=== PATIENT | female | born 1930 | race Caucasian/White ===

== ENCOUNTER 2016-12-21 14:37 | Inpatient (IN) | payer MEDICARE, BC ==
[~2016-12-21] VITALS: Ht 165.1 cm; Wt 82.5 kg
[2016-12-21] VITALS (12 sets, daily range): BP systolic 92–189; BP diastolic 44–122; PULSE 65–86; RESP 16–20; TEMP 97.8–98.6; O2SAT 85–98
[~2016-12-21 14:37] MED LIST: ADVAI100I PO; ALBU0.086 NEB; AMLO5 PO; BISA10R PR; CARV6.25 PO; CLON.1 PO; DIAZ2 PO; DIOV160T60 PO; FLEEENE3 PR; FLUO20TA20 PO; HYDR12.56 PO; LACT PO; LAMI300T PO; MELA0.02 PO; NORC7.5T PO; NORT10CA PO; NYST100010 SWISH-SPIT; PRAV40 PO; PROT40TA PO; RIVA15 PO; SERO25TA PO; VANC1CAP6 PO; WATE10P G-TUBE
--- NOTE | 2016-12-21 14:44 | PD ---
HPI . sob worsening over 5 days Chief Complaint: sob, fever, Time Seen by Provider: 14:44 Travel History International Travel<30 days: No Contact w/Intl Traveler<30days: No Traveled to known affect area: No History of Present Illness HPI 86-year-old female with past medical history of meningioma 15 years ago with surgical intervention complicated by CVA, hypertension, hyperlipidemia, GERD, hiatal hernia, recurrent C. difficile which was deemed cleared as recently as 4 weeks ago, here accompanied by her son who reports that patient has been having significant worsening of her shortness of breath accompanied by fever and increased phlegm production. Apparently back in December 2015 patient had hip surgery and was sent to [facility]. Unfortunately she contracted C. difficile and was then sent to [facility] at that point it was determined that her hip surgery had failed and she had to have another operation. She received that operation, went back to [facility] and contracted C. difficile again. She was then sent back to [facility] and apparently had an episode where she was found unresponsive after with the son seems to be describing as aspiration pneumonia. Patient was then sent again back to [facility] where once again she contracted C. difficile and thrush. She was treated appropriately and has been C. difficile free. In this time frame he has developed a sense of fear of bringing her to the hospital. He feels we will put her on antibiotics and give her C. diff once more. He goes on to tell me that his mother had some type of respiratory infection about 8 weeks ago. He says he did not want to bring her into the hospital because every time he does she contracts C. difficile. He decided to keep her home and was treating her with Robitussin and expectorant [id number]. He reports that she improved and she had been doing well since. At her baseline level of functioning, she is able to hold conversations and walk with a walker. 5 days ago a she came down with another respiratory infection. Where he started using [id number] expectorant and Robitussin. Initially she seemed to show signs of improvement, but patient says yesterday patient seemed to have developed worsening shortness of breath. He blames this on the the albuterol via nebulizer. He tells me that she may have had a fever as she felt warm. He never checked it with a thermometer. He reports that she has a lot of phlegm production. Unfortunately Ms. Borja is unable to relay any of her own information. She appears very ill and lethargic. Patient's son denies any nausea, vomiting, chest pain or abdominal pain. She has not been eating nor drinking well. PFSH Past Medical History Arthritis: Yes Asthma: No Atrial Fibrillation: Yes Autoimmune Disease: No Blood Disorders: No Anxiety: Yes Depression: Yes Heart Rhythm Problems: No Cancer: No Cardiovascular Problems: Yes (coronary artery disease status post stent; age or fibrillation) High Cholesterol: Yes Chemotherapy: No Congestive Heart Failure: Yes COPD: No Coronary Artery Disease: Yes (STENT TIMES ONE) Diabetes: No Diminished Hearing: No Deep Vein Thrombosis: Yes Endocrine: No Gastrointestinal Disorders: Yes GERD: Yes Genitourinary: Yes Hypertension: Yes Immune Disorder: No Implanted Vascular Access Dvce: Yes Kidney Stones: No Musculoskeletal: Yes Neurologic: Yes (dementia) Psychiatric: Yes Reproductive: No Respiratory: No Migraines: No Myocardial Infarction: No Radiation Therapy: No Sickle Cell Disease: No Thyroid Disease: No Ulcer: No Past Surgical History Abdominal Surgery: Yes (CHOLECYSTECTOMY) AICD: No Appendectomy: Yes Arteriovenous Shunt: No Body Medical Devices: SPINAL STIMULATOR AND CARDIAC STENT Cardiac Surgery: Yes (CARDIAC STENT) Cholecystectomy: Yes Ear Surgery: No Endocrine Surgery: No Eye Surgery: No Genitourinary Surgery: No Hysterectomy: Yes Insulin Pump: No Joint Replacement: No Neurologic Surgery: Yes (MENINGIOMA 1995-NEUROSPINAL STIMULATOR) Oral Surgery: No Thoracic Surgery: No Other Surgery: Yes Social History Alcohol Use: Yes (ONE DRINK A DAY) Tobacco Use: No Substance Use: No Allergies-Medications (Allergen,Severity, Reaction): Coded Allergies: Lactose (Verified Allergy, Severe, CRAMPS, DIARRHEA, 06/07/16) Reported Meds & Prescriptions Reported Meds & Active Scripts Active Reported Aspirin 325 Mg Tab 325 Mg PO DAILY Budesonide Neb 0.5 Mg/2 Ml Neb 0.5 Mg NEB BID Give with 1 vial of Perforomist Perforomist Neb (Formoterol Fumarate) 20 Mcg/2 Ml Neb 1 Vial NEB BID Give with 1 vial of Budesonide 0.5mg/2ml Lamictal XR (Lamotrigine) 300 Mg Abdi 300 Mg PO HS Folic Acid 400 Mcg Tab 800 Mcg PO DAILY Fluoxetine (Fluoxetine HCl) 20 Mg Cap 20 Mg PO BID Pravastatin 40 Mg Tab 40 Mg PO DAILY IN THE PM Pamelor (Nortriptyline HCl) 10 Mg Cap 20 Mg PO HS Hydrochlorothiazide 50 Mg Tab 50 Mg PO DAILY Advil (Ibuprofen) 200 Mg Tab 200-400 Mg PO Q4H PRN Amlodipine (Amlodipine Besylate) 5 Mg Tab 5 Mg PO DAILY Valsartan 160 Mg Tab 160 Mg PO BID Coreg (Carvedilol) 6.25 Mg Tab 6.25 Mg PO BID Morphine ER (Morphine Sulfate) 15 Mg Tab 15 Mg PO Q12HR Pantoprazole (Pantoprazole Sodium) 20 Mg Tab 20 Mg PO BID Take 30-60 minutes before breakfast and dinner Review of Systems General / Constitutional: Positive: Fever Eyes: No: Visual changes HENT: No: Headaches Cardiovascular: No: Chest Pain or Discomfort Respiratory: Positive: Cough, Shortness of Breath Gastrointestinal: No: Abdominal Pain Genitourinary: No: Dysuria Musculoskeletal: No: Pain Skin: No Rash Neurologic: No: Weakness Psychiatric: No: Depression Endocrine: No: Polydipsia Hematologic/Lymphatic: No: Easy Bruising Physical Exam Narrative GENERAL: AAO x 0 (very difficult to assess), respiratory distress on Room air o2 86%, lethargic SKIN: Warm and dry. HEAD: Normocephalic and atraumatic. EYES: No scleral icterus. No injection or drainage. ENT: No nasal drainage noted. Mucous membranes pink. Airway patent. Gurgling sound heard on respiration. NECK: Supple, trachea midline. No JVD. No lymphadenopathy. CARDIOVASCULAR: Regular rate and rhythm without murmurs, gallops, or rubs. RESPIRATORY: Breath sounds diminished equally bilaterally. No accessory muscle use. No rhonchi or rales. GASTROINTESTINAL: Abdomen soft, non-tender, nondistended. EXTREMITIES: No cyanosis or edema. BACK: Nontender without obvious deformity. No CVA tenderness. NEURO: follows some basic commands, arousable, lethargic, difficult to assess in her current state Data Data Last Documented VS Vital Signs Date Time Temp Pulse Resp B/P Pulse Ox O2 Delivery O2 Flow Rate FiO2 12/21/16 15:12 86 20 96 Nasal Cannula 3 12/21/16 14:58 98.0 98/52 Orders Electrocardiogram (12/21/16 ) Complete Blood Count With Diff (12/21/16 14:57) Comprehensive Metabolic Panel (12/21/16 14:57) Lactic Acid Sepsis Protocol (12/21/16 14:57) Urinalysis - C+S If Indicated (12/21/16 14:57) Blood Culture (12/21/16 14:57) Blood Glucose (12/21/16 14:57) Ecg Monitoring (12/21/16 14:57) Iv Access Insert/Monitor (12/21/16 14:57) Oximetry (12/21/16 14:57) Sodium Chloride 0.9% Flush (Ns Flush) (12/21/16 15:00) Oxygen Administration (12/21/16 14:57) Sodium Chloride 0.9% Flush (Ns Flush) (12/21/16 15:00) Influenzae A/B Antigen (12/21/16 14:57) Chest, Single Ap (12/21/16 14:57) Sodium Chloride 0.9% Flush (Ns Flush) (12/21/16 15:00) Troponin I (12/21/16 15:15) Arterial Blood Gas (Abg) (12/21/16 ) Sodium Chlor 0.9% 1000 Ml Inj (Ns 1000 M (12/21/16 16:30) Admit Order (Ed Use Only) (12/21/16 16:42) Labs Laboratory Tests Test 12/21/16 12/21/16 12/21/16 15:00 15:40 15:46 Urine Color YELLOW Urine Turbidity CLEAR Urine pH 5.0 Urine Specific [place] 1.014 Urine Protein NEG mg/dL Urine Glucose (UA) NEG mg/dL Urine Ketones NEG mg/dL Urine Occult Blood NEG Urine Nitrite NEG Urine Bilirubin NEG Urine Urobilinogen LESS THAN 2.0 MG/DL Urine Leukocyte Esterase NEG Urine WBC 2 /hpf Urine Squamous Epithelial <1 /hpf Cells Urine Hyaline Casts 1 /lpf Urine Mucus FEW /lpf Microscopic Urinalysis Comment CATH-CULT NOT IND Blood Gas Puncture Site LT RADIAL Blood Gas Patient Temperature 98.6 Blood Gas HCO3 23 mmol/L Blood Gas Base Excess -1.7 mmol/L Blood Gas Oxygen Saturation 85 % Arterial Blood pH 7.35 Arterial Blood Partial 43 mmHg Pressure CO2 Arterial Blood Partial 51 mmHG Pressure O2 Arterial Blood Oxygen Content 13.2 Vol % Arterial Blood 2.0 % Carboxyhemoglobin Arterial Blood Methemoglobin 1.7 % Blood Gas Hemoglobin 11.1 G/DL Blood Gas Inspired Oxygen 21 % White Blood Count 12.8 TH/MM3 Red Blood Count 3.90 MIL/MM3 Hemoglobin 11.0 GM/DL Hematocrit 34.1 % Mean Corpuscular Volume 87.5 FL Mean Corpuscular Hemoglobin 28.2 PG Mean Corpuscular Hemoglobin 32.3 % Concent Red Cell Distribution Width 14.5 % Platelet Count 226 TH/MM3 Mean Platelet Volume 8.9 FL Neutrophils (%) (Auto) 87.2 % Lymphocytes (%) (Auto) 5.5 % Monocytes (%) (Auto) 6.2 % Eosinophils (%) (Auto) 0.5 % Basophils (%) (Auto) 0.6 % Neutrophils # (Auto) 11.2 TH/MM3 Lymphocytes # (Auto) 0.7 TH/MM3 Monocytes # (Auto) 0.8 TH/MM3 Eosinophils # (Auto) 0.1 TH/MM3 Basophils # (Auto) 0.1 TH/MM3 CBC Comment DIFF FINAL Differential Comment Sodium Level 137 MEQ/L Potassium Level 4.4 MEQ/L Chloride Level 101 MEQ/L Carbon Dioxide Level 25.4 MEQ/L Anion Gap 11 MEQ/L Blood Urea Nitrogen 45 MG/DL Creatinine 2.61 MG/DL Estimat Glomerular Filtration 17 ML/MIN Rate Random Glucose 163 MG/DL Lactic Acid Level 2.4 mmol/L Calcium Level 8.5 MG/DL Total Bilirubin 0.5 MG/DL Aspartate Amino Transf 23 U/L (AST/SGOT) Alanine Aminotransferase 17 U/L (ALT/SGPT) Alkaline Phosphatase 121 U/L Troponin I LESS THAN 0.02 NG/ML Total Protein 6.0 GM/DL Albumin 2.9 GM/DL [facility] Medical Decision Making Medical Screen Exam Complete: Yes Emergency Medical Condition: Yes Medical Record Reviewed: Yes Differential Diagnosis PNA, CHF, dehydration, Narrative Course 86-year-old female with past medical history of meningioma 15 years ago with surgical intervention complicated by CVA, hypertension, hyperlipidemia, GERD, hiatal hernia, recurrent C. difficile which was deemed cleared as recently as 4 weeks ago, here accompanied by her son who reports that patient has been having significant worsening of her shortness of breath accompanied by fever and increased phlegm production. Apparently back in December 2015 patient had hip surgery and was sent to [facility]. Unfortunately she contracted C. difficile and was then sent to [facility] rehabilitation at that point it was determined that her hip surgery had failed and she had to have another operation. She received that operation, went back to [facility] and contracted C. difficile again. She was then sent back to [facility] and apparently had an episode where she was found unresponsive after with the son seems to be describing as aspiration pneumonia. Patient was then sent again back to [facility] where once again she contracted C. difficile and thrush. She was treated appropriately and has been C. difficile free. In this time frame he has developed a sense of fear of bringing her to the hospital. He feels we will put her on antibiotics and give her C. diff once more. He goes on to tell me that his mother had some type of respiratory infection about 8 weeks ago. He says he did not want to bring her into the hospital because every time he does she contracts C. difficile. He decided to keep her home and was treating her with Robitussin and expectorant [id number]. He reports that she improved and she had been doing well since. At her baseline level of functioning, she is able to hold conversations and walk with a walker. 5 days ago a she came down with another respiratory infection. Where he started using [id number] expectorant and Robitussin. Initially she seemed to show signs of improvement, but patient says yesterday patient seemed to have developed worsening shortness of breath. He blames this on the the albuterol via nebulizer. He tells me that she may have had a fever as she felt warm. He never checked it with a thermometer. He reports that she has a lot of phlegm production. Unfortunately Ms. Borja is unable to relay any of her own information. She appears very ill and lethargic. Patient's son denies any nausea, vomiting, chest pain or abdominal pain. She has not been eating nor drinking well. Patient seen and examined. Case discussed with Dr. Mcnally. Workup including labs, blood cultures, lactic acid, chest x-ray, EKG you have been ordered. We will follow-up with those results before adding any medications or determining further course of care. CXR without any acute findings. UA negative for infection. White count slightly elevated. Elevated BUN/Creatinine: IV hydration started in ED Patient will be admitted with RASHEL. Discussed with Dr. Nazario. 23 hour observation, CDU, discussed no antibiotics until speaking with son. Also caution albuterol. Consider palliative care (we have not discussed with family) Diagnosis Primary Impression: RASHEL (acute kidney injury) Admitting Information Admitting Physician Requests: Admit Condition: Stable Taty Gutierrez Dec 21, 2016 14:44
[2016-12-21] MEDS ORDERED: SODIUM CHLORIDE 0.9% FLUSH 5 ML FLUSH IVF PRN ×3 (15:00)
[2016-12-21] MEDS ORDERED: PAME10CA PO (15:22)
[2016-12-21] MEDS ORDERED: AMLO5TAB2 PO (15:22)
[2016-12-21] MEDS ORDERED: IBUP-988 PO (15:22)
[2016-12-21] MEDS ORDERED: HYDR50TA3 PO (15:22)
[2016-12-21] MEDS ORDERED: LAMI300T PO (15:22)
[2016-12-21] MEDS ORDERED: CARV6.25 PO (15:22)
[2016-12-21] MEDS ORDERED: FLUO20CA4 PO (15:22)
[2016-12-21] MEDS ORDERED: BUDE0.5S NEB (15:22)
[2016-12-21] MEDS ORDERED: FORM20NE NEB (15:22)
[2016-12-21] MEDS ORDERED: FOLI400T PO (15:22)
[2016-12-21] MEDS ORDERED: PANT20TA2 PO (15:22)
[2016-12-21] MEDS ORDERED: MORP1TAB24 PO (15:22)
[2016-12-21] MEDS ORDERED: PRAV40TA2 PO (15:22)
[2016-12-21] MEDS ORDERED: VALS1TAB65 PO (15:22)
[2016-12-21] MEDS ORDERED: ASPI325T PO (15:23)
--- NOTE | 2016-12-21 15:45 | RADRPT ---
EXAM DATE/TIME: 12/21/2016 15:31 [place] COMPARISON: CHEST SINGLE AP, June 08, 2016, 4:23. INDICATIONS : Short of breath. MEDICAL HISTORY : Cardiovascular disease. SURGICAL HISTORY : Coronary artery stent. ENCOUNTER: Initial ACUITY: 1 day PAIN SCORE: 0/10 LOCATION: Bilateral chest FINDINGS: A single view of the chest demonstrates the lungs to be symmetrically aerated without evidence of mas s, infiltrate or effusion. The cardiomediastinal contours are unremarkable. Osseous structures are intact. CONCLUSION: Normal examination. Lungs are grossly clear Gabriel Gurrola MD on December 21, 2016 at 15:43 Board Certified Radiologist. This report was verified electronically.
[2016-12-21 15:52] LABS: BLOOD GAS BASE EXCESS -1.7 mmol/L (-2-2); BLOOD GAS HCO3 23 mmol/L (22-26); BLOOD GAS METHEMOGLOBIN 1.7 % (0-2); BLOOD GAS O2 HGB SATURATION 85 % (90-100); BLOOD GAS OXYGEN CONTENT 13.2 Vol % (12.0-20.0); BLOOD GAS PCO2 43 mmHg (38-42); BLOOD GAS PO2 51 mmHG (61-120); BLOOD GAS TOTAL HGB 11.1 G/DL (12.0-16.0); CRITICAL VALUE YES; TEMP CORR TO 98.6
[2016-12-21 15:53] LABS: DRAW SITE LT RADIAL; FIO2 21 %; NUMBER OF ARTERIAL PUNCTURES 2; STAT YES; ULNAR PULSE PRESENT
[2016-12-21 15:57] LABS: AUTOMATED NEUTROPHIL # 11.2 TH/MM3 (1.8-7.7); BASOPHIL # 0.1 TH/MM3 (0-0.2); BASOPHIL % 0.6 % (0.0-2.0); EOSINOPHIL # 0.1 TH/MM3 (0-0.4); EOSINOPHIL % 0.5 % (0.0-4.0); HEMATOCRIT 34.1 % (35.0-46.0); HEMO FLAGS DIFF FINAL; LYMPH % 5.5 % (9.0-44.0); LYMPHOCYTE # 0.7 TH/MM3 (1.0-4.8); MEAN CELL VOLUME 87.5 FL (80.0-100.0); MEAN CORPUSCULAR HEMOGLOBIN 28.2 PG (27.0-34.0); MEAN CORPUSCULAR HGB CONC 32.3 % (32.0-36.0); MONO % 6.2 % (0.0-8.0); NEUT % 87.2 % (16.0-70.0); PLATELET COUNT 226 TH/MM3 (150-450); RED CELL DISTRIBUTION WIDTH 14.5 % (11.6-17.2); WHITE BLOOD COUNT 12.8 TH/MM3 (4.0-11.0)
[2016-12-21 16:12] LABS: BLOOD, URINE NEG (NEG); COMMENT (UR) CATH-CULT NOT IND; CULTURE IF INDICATED CATH CULTURE NOT IND; GLUCOSE,URINE NEG (NEG); HYALINE CAST, URINE 1 /lpf (RARE); KETONE, URINE NEG (NEG); MUCUS URINE FEW /lpf (OCC); NITRITE,URINE NEG (NEG); SQUAMOUS EPITHELIAL CELL URINE <1 /hpf (0-5); URINE COLOR YELLOW (YELLW/STRAW)
[2016-12-21 16:17] LABS: ALT (GPT) 17 U/L (10-53); ANION GAP 11 MEQ/L (5-15); AST (GOT) 23 U/L (15-37); BICARBONATE 25.4 MEQ/L (21.0-32.0); BLOOD UREA NITROGEN 45 MG/DL (7-18); CHLORIDE 101 MEQ/L (98-107); GLOMERULAR FILTRATION RATE 17 ML/MIN (>89); POTASSIUM 4.4 MEQ/L (3.5-5.1); SODIUM (NA) 137 MEQ/L (136-145)
[2016-12-21 16:19] LABS: ALKALINE PHOSPHATASE 121 U/L (45-117); TOTAL BILIRUBIN ADULT 0.5 MG/DL (0.2-1.0)
[2016-12-21] MEDS ORDERED: SODIUM CHLOR 0.9% 1000 ML INJ 1,000 ML IV ONE ×2 (16:30→19:30)
--- NOTE | 2016-12-21 16:54 | PD ---
Data Data Last Documented VS Vital Signs Date Time Temp Pulse Resp B/P Pulse Ox O2 Delivery O2 Flow Rate FiO2 12/21/16 15:12 86 20 96 Nasal Cannula 3 12/21/16 14:58 98.0 98/52 Orders Electrocardiogram (12/21/16 ) Complete Blood Count With Diff (12/21/16 14:57) Comprehensive Metabolic Panel (12/21/16 14:57) Lactic Acid Sepsis Protocol (12/21/16 14:57) Urinalysis - C+S If Indicated (12/21/16 14:57) Blood Culture (12/21/16 14:57) Blood Glucose (12/21/16 14:57) Ecg Monitoring (12/21/16 14:57) Iv Access Insert/Monitor (12/21/16 14:57) Oximetry (12/21/16 14:57) Sodium Chloride 0.9% Flush (Ns Flush) (12/21/16 15:00) Oxygen Administration (12/21/16 14:57) Sodium Chloride 0.9% Flush (Ns Flush) (12/21/16 15:00) Influenzae A/B Antigen (12/21/16 14:57) Chest, Single Ap (12/21/16 14:57) Sodium Chloride 0.9% Flush (Ns Flush) (12/21/16 15:00) Troponin I (12/21/16 15:15) Arterial Blood Gas (Abg) (12/21/16 ) Sodium Chlor 0.9% 1000 Ml Inj (Ns 1000 M (12/21/16 16:30) Admit Order (Ed Use Only) (12/21/16 16:42) Labs Laboratory Tests Test 12/21/16 12/21/16 12/21/16 15:00 15:40 15:46 Urine Color YELLOW Urine Turbidity CLEAR Urine pH 5.0 Urine Specific [place] 1.014 Urine Protein NEG mg/dL Urine Glucose (UA) NEG mg/dL Urine Ketones NEG mg/dL Urine Occult Blood NEG Urine Nitrite NEG Urine Bilirubin NEG Urine Urobilinogen LESS THAN 2.0 MG/DL Urine Leukocyte Esterase NEG Urine WBC 2 /hpf Urine Squamous Epithelial <1 /hpf Cells Urine Hyaline Casts 1 /lpf Urine Mucus FEW /lpf Microscopic Urinalysis Comment CATH-CULT NOT IND Blood Gas Puncture Site LT RADIAL Blood Gas Patient Temperature 98.6 Blood Gas HCO3 23 mmol/L Blood Gas Base Excess -1.7 mmol/L Blood Gas Oxygen Saturation 85 % Arterial Blood pH 7.35 Arterial Blood Partial 43 mmHg Pressure CO2 Arterial Blood Partial 51 mmHG Pressure O2 Arterial Blood Oxygen Content 13.2 Vol % Arterial Blood 2.0 % Carboxyhemoglobin Arterial Blood Methemoglobin 1.7 % Blood Gas Hemoglobin 11.1 G/DL Blood Gas Inspired Oxygen 21 % White Blood Count 12.8 TH/MM3 Red Blood Count 3.90 MIL/MM3 Hemoglobin 11.0 GM/DL Hematocrit 34.1 % Mean Corpuscular Volume 87.5 FL Mean Corpuscular Hemoglobin 28.2 PG Mean Corpuscular Hemoglobin 32.3 % Concent Red Cell Distribution Width 14.5 % Platelet Count 226 TH/MM3 Mean Platelet Volume 8.9 FL Neutrophils (%) (Auto) 87.2 % Lymphocytes (%) (Auto) 5.5 % Monocytes (%) (Auto) 6.2 % Eosinophils (%) (Auto) 0.5 % Basophils (%) (Auto) 0.6 % Neutrophils # (Auto) 11.2 TH/MM3 Lymphocytes # (Auto) 0.7 TH/MM3 Monocytes # (Auto) 0.8 TH/MM3 Eosinophils # (Auto) 0.1 TH/MM3 Basophils # (Auto) 0.1 TH/MM3 CBC Comment DIFF FINAL Differential Comment Sodium Level 137 MEQ/L Potassium Level 4.4 MEQ/L Chloride Level 101 MEQ/L Carbon Dioxide Level 25.4 MEQ/L Anion Gap 11 MEQ/L Blood Urea Nitrogen 45 MG/DL Creatinine 2.61 MG/DL Estimat Glomerular Filtration 17 ML/MIN Rate Random Glucose 163 MG/DL Lactic Acid Level 2.4 mmol/L Calcium Level 8.5 MG/DL Total Bilirubin 0.5 MG/DL Aspartate Amino Transf 23 U/L (AST/SGOT) Alanine Aminotransferase 17 U/L (ALT/SGPT) Alkaline Phosphatase 121 U/L Troponin I LESS THAN 0.02 NG/ML Total Protein 6.0 GM/DL Albumin 2.9 GM/DL [facility] Supervised Visit with ABIGAIL: Yes Narrative Course The history, exam, and medical decision-making in the associated mid-level provider note were completed with my assistance. I reviewed and agree with the findings presented. I attest that I had a [id number] encounter with the patient on the same day, and personally performed and documented my assessment and findings in the medical record. *My assessment and Findings: Send 86-year-old woman worsening medical problems or past several months, starting with a fractured hip, complicated by me or hospitalizations, multiple rounds of C. difficile, pneumonia, aspiration, and extended rehabilitation stays , presents to the emergency department with 4 days of cough congestion shortness of breath and worsening mental status. Mental status abruptly worsen today with lethargy, sluggishness, difficulty answering questions. Initial workup actually is not very revealing. She had a decrease oxygen saturation of 86% on room air. Is no obvious pneumonia. Blood test show what appears to be acute kidney injury related to significant dehydration. She is given IV fluid rehydration, holding antibiotics given recurrent C. difficile and no clear infectious source, admissions to the hospital. Diagnosis Primary Impression: RASHEL (acute kidney injury) Condition: Stable Gabriel Mcnally MD Dec 21, 2016 16:54
[2016-12-21] MEDS ORDERED: ACETAMINOPHEN 325 MG TAB PO PRN (17:45)
[2016-12-21] MEDS ORDERED: SODIUM CHLORIDE 0.9% FLUSH 5 ML FLUSH FLUSH PRN (17:45)
[2016-12-21] MEDS ORDERED: NALOXONE HCL 0.4 MG/ML AMP IV PRN (17:45)
[2016-12-21 17:46] LABS: LACTIC ACID GHOST NOT REPORTABLE
--- NOTE | 2016-12-21 18:01 | HHI.HP ---
[facility] Service [facility] Primary Care Physician No Primary Care Physician Admission Diagnosis RASHEL Diagnoses: Chief Complaint: Shortness of breath 5 days Travel History International Travel<30 Days: No Contact w/Intl Traveler <30 Da: No Traveled to Known Affected Are: No History of Present Illness This is a 86 female patient who is currently alert and oriented to person and place only with limited ability to provide information therefore information gathered from patient as well as prior computerized charting. Patient's past medical history which includes hypertension, depression, anxiety, chronic kidney disease, CVA, recurrent C. difficile 3 and CAD status post cardiac stent. Review of ER documentation patient has had worsening medical problems for the past several months, starting with a fractured hip, complicated by multiple hospitalizations, 3 rounds of C. difficile, aspiration pneumonia, and extended rehabilitation stays, presents to the emergency department with 5 days of cough congestion shortness of breath and worsening mental status. Patient had a decrease oxygen saturation of 86% on room air. No obvious pneumonia. Blood test show what appears to be acute kidney injury related to significant dehydration. She is given IV fluid rehydration in ER. Patient is a unreliable historian denies shortness of breath chest pain nausea vomiting diarrhea constipation fevers or chills. In review of ER documentation patient's son reported increasing shortness of breath, increased phlegm production, subjective fevers and altered mental status. Review of Systems ROS Limitations: Poor Historian Except as stated in HPI: all other systems reviewed are Neg Past Family Social History Past Medical History hypertension, depression, anxiety, chronic kidney disease, CVA, recurrent C. difficile 3 and CAD status post cardiac stent. Past Surgical History Hip surgery 02/2016 with revision, corticectomy, spinal cord stimulator, cardiac stent Reported Medications Aspirin 325 Mg Tab 325 Mg PO DAILY Budesonide Neb 0.5 Mg/2 Ml Neb 0.5 Mg NEB BID Give with 1 vial of Perforomist Perforomist Neb (Formoterol Fumarate) 20 Mcg/2 Ml Neb 1 Vial NEB BID Give with 1 vial of Budesonide 0.5mg/2ml Lamictal XR (Lamotrigine) 300 Mg Abdi 300 Mg PO HS Folic Acid 400 Mcg Tab 800 Mcg PO DAILY Fluoxetine (Fluoxetine HCl) 20 Mg Cap 20 Mg PO BID Pravastatin 40 Mg Tab 40 Mg PO DAILY IN THE PM Pamelor (Nortriptyline HCl) 10 Mg Cap 20 Mg PO HS Hydrochlorothiazide 50 Mg Tab 50 Mg PO DAILY Advil (Ibuprofen) 200 Mg Tab 200-400 Mg PO Q4H PRN Amlodipine (Amlodipine Besylate) 5 Mg Tab 5 Mg PO DAILY Valsartan 160 Mg Tab 160 Mg PO BID Coreg (Carvedilol) 6.25 Mg Tab 6.25 Mg PO BID Morphine ER (Morphine Sulfate) 15 Mg Tab 15 Mg PO Q12HR Pantoprazole (Pantoprazole Sodium) 20 Mg Tab 20 Mg PO BID Take 30-60 minutes before breakfast and dinner Allergies: Coded Allergies: Lactose (Verified Allergy, Severe, CRAMPS, DIARRHEA, 06/07/16) Active Ordered Medications Current Medications Medications (Trade) Dose Ordered Sig/Bucky Route Start Time Stop Time Status Last Admin (NS Flush) 2 ml UNSCH PRN IVF 12/21/16 15:00 (NS Flush) 2 ml UNSCH PRN IVF 12/21/16 15:00 (NS Flush) 2 ml UNSCH PRN IVF 12/21/16 15:00 Family History Unable to obtain Social History Lives at home with son reported EtOH use tobacco use or illicit drug use Physical Exam Vital Signs Vital Signs Date Time Temp Pulse Resp B/P Pulse Ox O2 Delivery O2 Flow Rate FiO2 12/21/16 15:12 86 20 96 Nasal Cannula 3 12/21/16 14:59 20 96 Nasal Cannula 3 12/21/16 14:59 96 Nasal Cannula 4 12/21/16 14:58 98.0 80 20 98/52 89 12/21/16 14:44 98.2 74 20 189/122 85 Room Air Physical Exam GENERAL: This is a ill-appearing 86-year-old female patient SKIN: Scattered ecchymosis bilateral upper extremities HEAD: Atraumatic. Normocephalic. No temporal or scalp tenderness. EYES: Extraocular motions intact. No scleral icterus. No injection or drainage. CARDIOVASCULAR: Regular rate and rhythm without murmurs, gallops, or rubs. RESPIRATORY: Extrabronchial breath sounds diffusely rhonchus GASTROINTESTINAL: Abdomen soft, non-tender, nondistended. MUSCULOSKELETAL: Trace bilateral extremity edema. No calf tenderness. Negative Homans sign bilaterally. NEUROLOGICAL: Oriented to person and place only. Motor and sensory grossly within normal limits. 3 out of 5 muscle strength in all muscle groups. Laboratory Laboratory Tests Test 12/21/16 12/21/16 12/21/16 15:00 15:40 15:46 Urine Color YELLOW Urine Turbidity CLEAR Urine pH 5.0 Urine Specific Olga 1.014 Urine Protein NEG Urine Glucose (UA) NEG Urine Ketones NEG Urine Occult Blood NEG Urine Nitrite NEG Urine Bilirubin NEG Urine Urobilinogen LESS THAN 2.0 Urine Leukocyte Esterase NEG Urine WBC 2 Urine Squamous Epithelial <1 Cells Urine Hyaline Casts 1 Urine Mucus FEW Microscopic Urinalysis Comment CATH-CULT NOT IND Blood Gas Puncture Site LT RADIAL Blood Gas Patient Temperature 98.6 Blood Gas HCO3 23 Blood Gas Base Excess -1.7 Blood Gas Oxygen Saturation 85 Arterial Blood pH 7.35 Arterial Blood Partial 43 Pressure CO2 Arterial Blood Partial 51 Pressure O2 Arterial Blood Oxygen Content 13.2 Arterial Blood 2.0 Carboxyhemoglobin Arterial Blood Methemoglobin 1.7 Blood Gas Hemoglobin 11.1 Blood Gas Inspired Oxygen 21 White Blood Count 12.8 Red Blood Count 3.90 Hemoglobin 11.0 Hematocrit 34.1 Mean Corpuscular Volume 87.5 Mean Corpuscular Hemoglobin 28.2 Mean Corpuscular Hemoglobin 32.3 Concent Red Cell Distribution Width 14.5 Platelet Count 226 Mean Platelet Volume 8.9 Neutrophils (%) (Auto) 87.2 Lymphocytes (%) (Auto) 5.5 Monocytes (%) (Auto) 6.2 Eosinophils (%) (Auto) 0.5 Basophils (%) (Auto) 0.6 Neutrophils # (Auto) 11.2 Lymphocytes # (Auto) 0.7 Monocytes # (Auto) 0.8 Eosinophils # (Auto) 0.1 Basophils # (Auto) 0.1 CBC Comment DIFF FINAL Differential Comment Sodium Level 137 Potassium Level 4.4 Chloride Level 101 Carbon Dioxide Level 25.4 Anion Gap 11 Blood Urea Nitrogen 45 Creatinine 2.61 Estimat Glomerular Filtration 17 Rate Random Glucose 163 Lactic Acid Level 2.4 Calcium Level 8.5 Total Bilirubin 0.5 Aspartate Amino Transf 23 (AST/SGOT) Alanine Aminotransferase 17 (ALT/SGPT) Alkaline Phosphatase 121 Troponin I LESS THAN 0.02 Total Protein 6.0 Albumin 2.9 Date/Time Procedure Status Source Growth 12/21/16 15:00 Influenza Types A,B Antigen (TIFFANY) - Final Complete Nasal Washing NEGATIVE FOR FLU A AND B ANTIGEN.... 12/21/16 15:00 Aerobic Blood Culture Received Blood Peripheral Pending 12/21/16 15:00 Anaerobic Blood Culture Received Blood Peripheral Pending Result Diagram: 12/21/16 1546 12/21/16 1546 Imaging Last Impressions Chest X-Ray 12/21/16 1457 Signed Impressions: Service Date/Time: Wednesday, December 21, 2016 15:31 - CONCLUSION: Normal examination. Lungs are grossly clear Gabriel Gurrola MD Assessment and Plan Assessment and Plan This is a 86 female patient who is currently alert and oriented to person and place only with limited ability to provide information therefore information gathered from patient as well as prior computerized charting. Patient's past medical history which includes hypertension, depression, anxiety, chronic kidney disease, CVA, recurrent C. difficile 3 and CAD status post cardiac stent. Review of ER documentation patient has had worsening medical problems for the past several months, starting with a fractured hip, complicated by multiple hospitalizations, 3 rounds of C. difficile, aspiration pneumonia, and extended rehabilitation stays, presents to the emergency department with 5 days of cough congestion shortness of breath and worsening mental status. Hypoxia question aspiration pneumonia, question viral syndrome Leukocytosis mild possibly related to dehydration Chest x-ray reviewed by myself as well as Dr. Nazario no acute disease process CT chest without contrast pending Ipratropium nebulizers Nothing by mouth- speech therapy consulted for swallowing evaluation Patient with history of recurrent C. difficile no definite bacterial evidence will hold off on antibiotics continue to monitor Titrate oxygen to maintain saturation above 90% Acute kidney injury on chronic kidney disease likely dehydration and poor by mouth intake Patient received fluid bolus in emergency department Recheck BMP in a.m. History of CAD with stent continue aspirin and pravastatin Deconditioning consult physical therapy and occupational therapy Failure to thrive- Consult palliative care DVT prophylaxis heparin subcutaneous Discussed the care provider, nursing and patient Written by Francisca Gregg, acting as scribe for Dr. Nazario on 12/21/16 at 18:00. Physician Certification 2 Midnight Certification Type: Admission for Inpatient Services Order for Inpatient Services The services are ordered in accordance with Medicare regulations or non- Medicare payer requirements, as applicable. In the case of services not specified as inpatient-only, they are appropriately provided as inpatient services in accordance with the 2-midnight benchmark. Estimated LOS (days): 3 days is the estimated time the patient will need to remain in the hospital, assuming treatment plan goals are met and no additional complications. Post-Hospital Plan: Not yet determined Notes: The documentation accurately reflects the work performed [id number] by me on at 18:00. Francisca Gregg Dec 21, 2016 18:01 Lloyd Nazario DO Dec 21, 2016 18:43
--- NOTE | 2016-12-21 18:57 | RADRPT ---
EXAM DATE/TIME: 12/21/2016 18:27 [facility] COMPARISON: No previous studies available for comparison. INDICATIONS : Pneumonia and lung disease. RADIATION DOSE: 6.11 CTDIvol (mGy) MEDICAL HISTORY : Cardiovascular disease. Hypertension. Deep venous thrombosis. Chronic kidney disease. SURGICAL HISTORY : Appendectomy. Cholecystectomy.Hysterectomy. ENCOUNTER: Initial ACUITY: 2 days PAIN SCALE: 0/10 LOCATION: chest TECHNIQUE: Volumetric scanning of the chest was performed. Using automated exposure control and adjustment of t he mA and/or kV according to patient size, radiation dose was kept as low as reasonably achievable to obtain optimal diagnostic quality images. FINDINGS: LUNGS: A 14 mm spiculated nodule is identified in the left lower lobe. Consolidating airspace disease identi fied in both lower lobes along the posterior pleural margins. PLEURAE: There is no pleural thickening or pleural effusion. MEDIASTINUM: Coronary artery stent is noted in place. The heart and great vessels demonstrate no acute abnormality . There is no mediastinal or hilar lymphadenopathy. AXILLAE: Within normal limits. No lymphadenopathy. MUSCULOSKELETAL: Intramedullary annalise is identified in the right humerus. MISCELLANEOUS: The visualized upper abdominal organs demonstrate no acute abnormality. CONCLUSION: 14 mm spiculated nodule left lower lobe characteristic of malignancy until proven otherwise. Bilateral lower lobe consolidating airspace disease characteristic of pneumonia. Coronary artery stent. Yuri Garsia MD on December 21, 2016 at 18:51 Board Certified Radiologist. This report was verified electronically.
[2016-12-21] MEDS: RESP: BUDESONIDE 0.5 MG/2 ML NEB NEB SCH (20:06)
[2016-12-21] MEDS: SODIUM CHLORIDE 0.9% FLUSH 5 ML FLUSH FLUSH SCH (20:54)
[2016-12-21] MEDS: PRAVASTATIN SOD 40 MG TAB PO SCH (21:00)
[2016-12-21] MEDS ORDERED: CARVEDILOL 6.25 MG TAB PO SCH (21:00)
[2016-12-21] MEDS: FLUoxetine HCL 20 MG CAP PO SCH (21:00)
[2016-12-21] MEDS: DOCUSATE SODIUM 100 MG CAP PO SCH (21:00)
[2016-12-21] MEDS: SODIUM CHLOR 0.9% 1000 ML INJ 1,000 ML IV ONE ×2 (21:00→23:13)
[2016-12-21] MEDS ORDERED: NORTRIPTYLINE HCL 10 MG CAP PO SCH (21:00)
[2016-12-21] MEDS ORDERED: FORMOTEROL NEB SCH (21:00)
[2016-12-21] MEDS: HEPARIN SODIUM - SQ 10,000 UNITS/ML VIAL SQ SCH (22:00)
[2016-12-21] MEDS: HYDROCORTISONE SOD SUCCINATE 100 MG VIAL IV PUSH SCH (22:02)
--- NOTE | 2016-12-21 22:29 | HHI.PR ---
Addendum to Inpatient Note Addendum Reason: Additional Documentation Additional Information I was called by patient's nurse because patient's blood pressure was low at around 8:30 PM. She has told me that 2 L of normal saline bolus was ordered at that time. Chart reviewed. Patient already received 1 L of normal saline in ER. Also on review of medical records, this patient initially came into ER with blood pressures of 180s over 90s. No blood pressure medications were given. However her blood pressure is dropping according to the nurse. Therefore at that time, I had told the nurse to recheck the blood pressure and to call me back. On repeat blood pressure measurements, it was confirmed that patient's blood pressure was low bilaterally. Therefore I had given 1 more liter of normal saline bolus. Also has started for Solu-Cortef 100 mg IV every 8 hours. Also advised to put a Engle catheter since patient was not urinating while in ER. Discussed the patient's with patient's son over the phone. Since I was getting repeated calls on this patient by the nurse, I have come to see the patient at the bedside. Patient is awake. However is quite sleepy and does not really participate in conversation. According to the nurse and son at the bedside, patient is now much more awake and alert. She is not tachycardic. Heart rate is around 60-70. On exam, Elderly lady, with gurgling sounds. Looks comfortable despite this gurgling sounds. Saturating about 98% on 3 L nasal cannula. No use of respiratory accessory muscles. Heart rate is regular, no murmur appreciated. Lungs sounds are actually quite clear. Her congestion is mostly upper airway around her throat. Abdomen is soft and nontender. No murmur appreciated. Lower extremity shows mild peripheral edema. No calf asymmetry. Impression: Hypotensionlikely due to sepsis. Compounded by patient's son giving her blood pressure medications prior to coming to hospital. Also patient has not been eating or drinking well. Bilateral basilar infiltrates on chest CTwith patient's son report of respiratory symptoms going on for several weeks, with fever, responding to her use [id number] congestion medications Possible aspiration pneumonia Recurrent and recent C. difficile Leukocytosis with left shift Lactic acid acidosisimproved with IV hydration next and acute renal failure secondary to likely dehydration. Patient's son reported that patient has not been eating or drinking well for the past 5 days. Plan: Start patient on maintenance IV fluids of IV antibioticscefepime 2 g IV every 8 hours. Patient is at high risk of C. difficile. However she does have pneumonia both by history and imaging studies. start on lactobacilus Strict nothing by mouth's. Speech and swallow evaluation. Transfer patient to ICU status. We'll start patient on vasopressors if her blood pressure does not improve. Repeat chest x-ray stat. If the chest x-ray is clear and no evidence of fluid overload, will start her on maintenance IV fluids. Again, patient's lung exam is quite clear. Her congestion is mostly upper airway and likely due to aspiration. Hold BP meds for the morning. Critical Care time 30min Tai Stover MD Dec 21, 2016 22:29
[2016-12-21] MEDS ORDERED: CEFEPIME INJ 2,000 MG in SODIUM CHLORIDE 0.9% INJ 100 ML IV SCH (22:30)
[2016-12-21] MEDS ORDERED: CHLORHEXIDINE GLUCONATE 2 % 1 PACK (2 CLOTHS)(extra cloths) TOP PRN (22:45)
--- NOTE | 2016-12-21 23:12 | RADRPT ---
EXAM DATE/TIME: 12/21/2016 22:57 [facility] COMPARISON: CHEST SINGLE AP, December 21, 2016, 15:31. INDICATIONS : Shortness of breath. MEDICAL HISTORY : Cardiovascular disease. Deep venous thrombosis. Hypertension. Chronic kidney disease SURGICAL HISTORY : Appendectomy. Cholecystectomy. Hysterectomy. ENCOUNTER: Subsequent ACUITY: 2 days PAIN SCORE: 0/10 LOCATION: Bilateral chest FINDINGS: There is intramedullary annalise fixation of the right humerus. Mild subsegmental air space disease present at the bases. No significant effusion. No pneumothorax. H eart size mildly enlarged. Tortuous aorta. CONCLUSION: 1. Subsegmental basilar opacity most characteristic of atelectasis. No significant effusion. Virgilio Coats MD on December 21, 2016 at 23:10 Board Certified Radiologist. This report was verified electronically.
[2016-12-22] VITALS (16 sets, daily range): BP systolic 77–108; BP diastolic 38–55; PULSE 62–92; RESP 20–36; TEMP 97.5–98.8; O2SAT 88–100
[2016-12-22] MEDS: LAMOTRIGINE 300 MG PO SCH
[2016-12-22] MEDS ORDERED: SODIUM CHLOR 0.9% 1000 ML INJ 1,000 ML IV SCH
[2016-12-22] MEDS ORDERED: SODIUM CHLOR 0.9% 1000 ML INJ 1,000 ML IV ONE (00:15)
[2016-12-22] MEDS ORDERED: TERBUTALINE INJ 1 MG/ML AMP SQ PRN (00:15)
[2016-12-22] MEDS ORDERED: NOREPINEPHRINE-DEXTROSE DRIP 250 ML IV SCH (00:15)
[2016-12-22] MEDS: CHLORHEXIDINE GLUCONATE 2 % 1 PACK (2 CLOTHS)(taper/protocol) TOP SCH (04:00)
[2016-12-22 04:12] LABS: ANION GAP 13 MEQ/L (5-15); AST (GOT) 37 U/L (15-37); BICARBONATE 22.5 MEQ/L (21.0-32.0); BLOOD UREA NITROGEN 41 MG/DL (7-18); CHLORIDE 108 MEQ/L (98-107); GLOMERULAR FILTRATION RATE 24 ML/MIN (>89); POTASSIUM 3.8 MEQ/L (3.5-5.1); SODIUM (NA) 143 MEQ/L (136-145)
[2016-12-22 04:15] LABS: ALKALINE PHOSPHATASE 100 U/L (45-117); ALT (GPT) 27 U/L (10-53); TOTAL BILIRUBIN ADULT 0.4 MG/DL (0.2-1.0)
[2016-12-22] MEDS: NYSTATIN 100,000 U/GM PWD 15 GM BTL TOPICAL SCH ×3 (06:00→21:41)
[2016-12-22] MEDS: HEPARIN SODIUM - SQ 10,000 UNITS/ML VIAL SQ SCH ×3 (06:00→21:40)
[2016-12-22] MEDS: RESP: BUDESONIDE 0.5 MG/2 ML NEB NEB SCH ×2 (08:05→20:06)
[2016-12-22] MEDS ORDERED: ASPIRIN 325 MG TAB PO SCH (09:00)
[2016-12-22] MEDS ORDERED: amLODIPine BESYLATE 5 MG TAB PO SCH (09:00)
[2016-12-22] MEDS ORDERED: VANCOMYCIN INJ 1,000 MG in SODIUM CHLOR 0.9% 250 ML INJ 250 ML IV ONE (09:00)
[2016-12-22] MEDS: DOCUSATE SODIUM 100 MG CAP PO SCH (09:00)
[2016-12-22] MEDS: FOLIC ACID 1 MG TAB PO SCH (09:00)
[2016-12-22] MEDS: LACTOBACILLUS ACIDOPHILUS 1 GM PACKET PO SCH ×4 (09:00→21:00)
[2016-12-22] MEDS: FLUoxetine HCL 20 MG CAP PO SCH (09:00)
[2016-12-22 09:56] LABS: BLOOD GAS BASE EXCESS -6.9 mmol/L (-2-2); BLOOD GAS CARBOXYHEMOGLOBIN 0.8 % (0-4); BLOOD GAS HCO3 19 mmol/L (22-26); BLOOD GAS METHEMOGLOBIN 1.4 % (0-2); BLOOD GAS O2 HGB SATURATION 95 % (90-100); BLOOD GAS OXYGEN CONTENT 14.7 Vol % (12.0-20.0); BLOOD GAS PCO2 46 mmHg (38-42); BLOOD GAS PO2 107 mmHg (61-120); BLOOD GAS TOTAL HGB 10.9 G/DL (12.0-16.0); TEMP CORR TO 98.6
[2016-12-22 10:00] LABS: CRITICAL VALUE YES; DRAW SITE LT BRACHIAL; LITER FLOW 10 L/M
[2016-12-22 10:01] LABS: NUMBER OF ARTERIAL PUNCTURES 1; STAT YES; ULNAR PULSE PRESENT
[2016-12-22] MEDS: HYDROCORTISONE SOD SUCCINATE 100 MG VIAL IV PUSH SCH (10:12)
[2016-12-22] MEDS: SODIUM CHLORIDE 0.9% FLUSH 5 ML FLUSH FLUSH SCH ×2 (10:15→21:00)
[2016-12-22] MEDS: PANTOPRAZOLE SOD 20 MG DELAYED RELEASE TAB PO SCH ×2 (10:15→16:00)
[2016-12-22] MEDS: PIPERACIL-TAZO 3.375 GM PREMIX 50 ML IV SCH ×3 (10:16→21:41)
[2016-12-22 11:12] LABS: AUTOMATED NEUTROPHIL # 9.3 TH/MM3 (1.8-7.7); BASOPHIL # 0.1 TH/MM3 (0-0.2); BASOPHIL % 0.6 % (0.0-2.0); EOSINOPHIL % 0.2 % (0.0-4.0); HEMO FLAGS DIFF FINAL; LYMPH % 8.7 % (9.0-44.0); MEAN CELL VOLUME 88.7 FL (80.0-100.0); MEAN CORPUSCULAR HEMOGLOBIN 28.8 PG (27.0-34.0); MEAN CORPUSCULAR HGB CONC 32.4 % (32.0-36.0); MONO % 5.8 % (0.0-8.0); NEUT % 84.7 % (16.0-70.0); PLATELET COUNT 241 TH/MM3 (150-450); RED BLOOD COUNT 3.72 MIL/MM3 (4.00-5.30); RED CELL DISTRIBUTION WIDTH 14.7 % (11.6-17.2)
--- NOTE | 2016-12-22 11:17 | EKG ---
Date Performed: 12/21/2016 Time Performed: 14:57:38 PTAGE: 86 years EKG: Sinus rhythm WITH FIRST DEGREE AV BLOCK LOW QRS VOLTAGE IN PRECORDIAL LEADS NONSPECIFIC T-WAVE ABNORMALITY ABNORM AL ECG PREVIOUS TRACING : 06/07/2016 05.57 DOCTOR: Gabriel Bose Interpretating Date/Time 12/22/2016 11:15:58
[2016-12-22 11:26] LABS: BICARBONATE 21.9 MEQ/L (21.0-32.0); MAGNESIUM 1.9 MG/DL (1.5-2.5); POTASSIUM 4.1 MEQ/L (3.5-5.1)
[2016-12-22] MEDS ORDERED: CEFEPIME INJ 2,000 MG in SODIUM CHLORIDE 0.9% INJ 100 ML IV SCH (12:00)
[2016-12-22] MEDS ORDERED: Vancomycin Consult Pharmacy 1 EA OTHER SCH (12:00)
[2016-12-22] MEDS: RESP: ALBUTEROL 2.5 MG/IPRATROPIUM 0.5 MG NEB (SCH) NEB ×4 (12:20→23:14)
--- NOTE | 2016-12-22 12:29 | RADRPT ---
EXAM DATE/TIME: 12/22/2016 11:55 [facility] COMPARISON: CHEST SINGLE AP, December 21, 2016, 22:57. INDICATIONS : Short of breath. MEDICAL HISTORY : None. Cardiovascular disease. Hypertension. Deep venous thrombosis. Chronic kidney disease. SURGICAL HISTORY : None. Appendectomy. Cholecystectomy. Hysterectomy. ENCOUNTER: Subsequent ACUITY: 2 days PAIN SCORE: 0/10 LOCATION: Chest FINDINGS: There is improvement in the appearance of the chest with less bibasilar parenchymal changes evident. Heart and pulmonary vascularity are normal. There is no pneumothorax. CONCLUSION: Interim improvement with better aeration. Alvaro Jones MD FACR on December 22, 2016 at 12:24 Board Certified Radiologist. This report was verified electronically.
--- NOTE | 2016-12-22 12:34 | PD.CONS ---
Consult Service Palliative Care Consult Requested By Dr. Aravind MD. Primary Care Physician Rosas Ovalles MD Reason for Consultation a. To assist with evaluation and management of symptoms including: Debility , dysphagia and shortness of breath. b. To assist medical decision maker(s) with: better understanding of current medical conditions; weighing benefits/burdens of medical treatment options; making medical treatment decisions. HPI History of Present Illness Mrs. Borja is an 86-year-old female with a past medical history of right femur fracture secondary to mechanical fall s/p intramedullary nail fixation on February complicated by migration of screw and infection for which she underwent removal of hardware and intramedullary annalise fixation in April 27, 2016. All other medical history includes dementia, CAD status post stents, CHF hypertension, chronic kidney disease stage III, anxiety/depression, dysphagia with PEG tube placement in May 2016. On 12/21/16, patient presented to the emergency room with reports of 5 days of cough, chest congestion, shortness of breath and worsening mental status. Patient was admitted for further evaluation and management. Overnight, patient became hypotensive with systolic blood pressure in the 80s. She received 2 L of normal saline. Hypotension likely secondary to sepsis. Patient was placed on antibiotics and transferred to ICU for further management. Ham Smoker has been consulted. Patient hypotensive this morning, she was started on Levophed drip but currently stopped. * Labs on presentation include WBC 12.8, Hgb 11.0, platelets 226. Sodium 137, potassium 4.4, BUN/creatinine 45/2.61. Lactic acid 2.4. Albumin 2.9. * UA to 12/06/17 negative for nitrates and leukocytes. * Laboratory today WBC 11.0, Hgb 10.7, platelet 241. Sodium 143, potassium 4.1 , BUN/creatinine 39/2.04. * Chest x-ray 12/21/16 showing basilar opacities suggesting atelectasis. * Chest CT 12/21 16 showing 14 mm nodule on left lower lobe characteristic of malignancy as well as bilateral lower lobe consolidation suggesting pneumonia. * Blood cultures pending. No growth in one day. Review of prior medical history/hospitalizations. Patient with multiple hospitalizations since March 04, 2016 when she sustained right hip fracture secondary to mechanical fall. She underwear repair on 03/05/16 and was discharged to [facility] on 03/11/16 where she stayed until 6/19/16. On 04/27/16 patient presented to the emergency room with complaints of altered mental status, he was found that her hardware migrated and she underwent revision with removal of hardware. She was discharged once more to [facility] where she stayed until 05/28/16. At that time she was discharged to [facility]. Patient return to the hospital on June 07, 2016 secondary to altered mental status and respiratory distress. PEG tube was placed on a secondary to dysphagia. She was discharged back to [facility] on 06/17/16. In between her hospitalizations, rehabilitation and senior living facility placement, patient diagnosed with C. difficile for which she received medical treatment. It is unclear as per medical records when her PEG tube was removed. Patient seen in ICU, she was laying in bed in no acute distress. Patient alert , opening eyes to verbal stimuli. Nodding head to yes/no questions. History of dementia, unclear level of understanding. Nodding head "no" when asked about pain, shortness of breath or abdominal discomfort. Nonverbal during my visit, unable to tell me her name. Not following commands. Bilateral hands contraction noted with moderate tremors. Vasopressor has been off since this morning. She is on O2 at 10 L via nonrebreather. Breathing in mid 20s. Afebrile. No family at bedside. Family meeting, in attendance patient's sons Mohan Barnett and Richard. Son Mohan it's a palliative care master certified rv technician at [facility]. Reviewed events into these hospitalization. Reviewed clinical decline since right hip fracture in February 2016. Medical update provided. Reviewed current plan of care. Share concerns regarding patient's respiratory condition, acute kidney injury, hypotension, and profound physical deconditioning. Reviewed CT of chest results to include lung nodule highly suggestive of malignancy. Discussed CPR, intubation and mechanical ventilation given patient's condition. Family electing for no code -DNR/DNI. Family wishing to allow additional time for clinical improvement. Reviewed likely trajectory of illness given her multiple prior hospitalizations and complications. Family verbalized awareness that patient may not survive to discharge but are hopeful that she will recover as she has done previously. Discussed the future role of hospice should patient's symptoms burden continues to increase or there is additional functional/ clinical decline. Family verbalized that their main priority is patient's quality of life and will be amenable to hospice services in the setting of worsening clinical condition. Active listening and emotional support provided. Family appreciative of family meeting. Case discussed with Dr. Buck and bedside RN. . Function/Cognitive Trajectory Cognitive decline reported secondary to dementia. Patient residing with her and son prior to this hospitalization. Requiring moderate assistance with ADLs. Ambulating short distances with walker. . Review of Systems ROS Limitations: Clinical Condition, Poor Historian Constitutional: COMPLAINS OF: Fever Eyes: DENIES: Blurred vision Ears, nose, mouth, throat: COMPLAINS OF: Hearing loss Respiratory: COMPLAINS OF: Cough, Sputum production, Shortness of breath Cardiovascular: DENIES: Chest pain Gastrointestinal: DENIES: Diarrhea, Nausea, Vomiting Musculoskeletal: COMPLAINS OF: Stiffness Integumentary: DENIES: Abnormal pigmentation Hematologic/Lymphatics: COMPLAINS OF: Bruising Neurologic: COMPLAINS OF: Abnormal gait Psychiatric: COMPLAINS OF: Anxiety, Depression Other ROS: Limited ROS secondary to clinical condition, dementia. ROS obtained from medical records, family and clinical presentation. Past Family Social History Coded Allergies: Lactose (Verified Allergy, Severe, CRAMPS, DIARRHEA, 06/07/16) Past Medical History Seizures Dementia CVA with aphasia CAD status post stents CHF Hypertension Chronic kidney disease, stage III Anxiety Depression Dysphagia status post PEG tube placement in May 2016 History of C. difficile 3 Chronic anemia . Past Surgical History Intramedullary nail fixation in March 05, 2016 Intramedullary annalise fixation revision in April 27, 2016. Spinal cord stimulator Cardiac stand PEG tube placement in June 15, 2016 Cholecystectomy . Reported Medications Aspirin 325 Mg Tab 325 Mg PO DAILY Budesonide Neb 0.5 Mg/2 Ml Neb 0.5 Mg NEB BID Perforomist Neb (Formoterol Fumarate) 20 Mcg/2 Ml Neb 1 Vial NEB BID Lamictal XR (Lamotrigine) 300 Mg Abdi 300 Mg PO HS Folic Acid 400 Mcg Tab 800 Mcg PO DAILY Fluoxetine (Fluoxetine HCl) 20 Mg Cap 20 Mg PO BID Pravastatin 40 Mg Tab 40 Mg PO DAILY IN THE PM Pamelor (Nortriptyline HCl) 10 Mg Cap 20 Mg PO HS Hydrochlorothiazide 50 Mg Tab 50 Mg PO DAILY Advil (Ibuprofen) 200 Mg Tab 200-400 Mg PO Q4H PRN Amlodipine (Amlodipine Besylate) 5 Mg Tab 5 Mg PO DAILY Valsartan 160 Mg Tab 160 Mg PO BID Coreg (Carvedilol) 6.25 Mg Tab 6.25 Mg PO BID Morphine ER (Morphine Sulfate) 15 Mg Tab 15 Mg PO Q12HR Pantoprazole (Pantoprazole Sodium) 20 Mg Tab 20 Mg PO BID . Current Medications Medications (Trade) Dose Ordered Sig/Bucky Route Start Time Stop Time Status Last Admin (NS Flush) 2 ml UNSCH PRN FLUSH 12/21/16 17:45 (NS Flush) 2 ml BID FLUSH 12/21/16 21:00 12/22/16 10:15 (Tylenol) 650 mg Q4H PRN PO 12/21/16 17:45 (Colace) 100 mg Q12H PO 12/21/16 21:00 (Heparin Inj) 5,000 units Q8H SQ 12/21/16 22:00 (Tylenol) 650 mg Q6H PRN PO 12/21/16 17:45 (Narcan Inj) 0.4 mg UNSCH PRN IV 12/21/16 17:45 (Aspirin) 325 mg DAILY PO 12/22/16 09:00 (PROzac) 20 mg BID PO 12/21/16 21:00 (Folate) 1 mg DAILY PO 12/22/16 09:00 (Pamelor) 20 mg HS PO 12/21/16 21:00 (Protonix) 20 mg BIDAC PO 12/22/16 07:00 12/22/16 10:15 (Pravachol) 40 mg HS PO 12/21/16 21:00 Patient Own Medication PT OWN MED: (Formoterol ... BID NEB 12/21/16 21:00 Hold Patient Own Medication PT OWN MED: (Lamotrig... DAILY@00 PO 12/22/16 00:00 (SoluCORTEF INJ) 100 mg Q8HR IV PUSH 12/21/16 22:00 12/22/16 10:12 Miscellaneous Information Patient in critical care unit? Ass... Q361D XX 12/21/16 22:45 (Chlorhexidine 2% Cloth) 3 pack DAILY@04 TOP 12/22/16 04:00 12/26/16 04:01 12/22/16 04:00 Chlorhexidine Gluconate 3 pack 3 pack UNSCH PRN TOP 12/21/16 22:45 12/26/16 22:44 (NS 1000 ml Inj) 1,000 ml @ 100 mls/hr Q10H IV 12/22/16 00:00 12/22/16 00:00 Lactobacillus Acidophilus 1 gm 1 gm QID PO 12/22/16 09:00 (Levophed-Dextrose Drip) 250 ml @ 0 mls/hr TITRATE IV 12/22/16 00:15 (Brethine Inj) 1 mg UNSCH PRN SQ 12/22/16 00:15 Nystatin 1 applic 1 applic Q8HR TOPICAL 12/22/16 06:00 12/22/16 06:00 (Zosyn 3.375 Gm Premix) 50 ml @ 100 mls/hr Q6H IV 12/22/16 10:00 12/22/16 10:16 Family History Unable to obtain family history secondary to clinical condition. Patient has 5 children are alive and well. . Substance Use Tobacco: Denies. Alcohol: Denies. Prescription med abuse: Denies. Illicits: Denies. . Psychosocial History Patient originally from [place], has been residing in [place] for the past 20 years. Prior to right hip fracture in February 2016 she was residing with her and son. Current resident of a [facility]. Patient has 5 children. . Spiritual/Cultural Factors Adventism. . Living Will: Completed, but not made available Health Care Surrogate: Completed, but not made available Durable Power of Commercial Sales Consultant: Completed, but not made available Date completed: Pending documentation from family. . Health Care Surrogate(s): As per family, designated healthcare surrogate this patient's son Anibal Borja. . Documented care wishes: Pending copy of living will. . Family/friends goals: No code. DNR/DNI. Goal is to continue aggressive medical management short of no code and to allow a few days for clinical improvement. Ethical and Legal Issues No ethical legal issues have been identified. . Physical Exam Vital Signs Date Time Temp Pulse Resp B/P Pulse Ox O2 Delivery O2 Flow Rate FiO2 12/22/16 08:08 98 Partial Rebreather 12.00 12/22/16 06:00 66 12/22/16 04:20 97 Partial Rebreather 10.00 12/22/16 04:00 68 12/22/16 04:00 98.7 68 29 83/46 100 12/22/16 02:00 75 12/22/16 00:57 94 Venturi Mask 6.00 50 12/22/16 00:00 62 12/22/16 00:00 98.4 62 20 77/38 88 12/21/16 23:00 66 12/21/16 22:51 98.6 69 16 100/44 95 12/21/16 22:10 65 16 96/46 98 Nasal Cannula 3 12/21/16 20:43 71 98/52 12/21/16 20:42 68 92/48 Automatic Cuff 12/21/16 20:12 98.6 69 16 96/55 98 Nasal Cannula 3 12/21/16 20:07 98 Nasal Cannula 3.00 12/21/16 18:00 97.8 86 18 108/58 98 Nasal Cannula 3 12/21/16 15:45 92 Nasal Cannula 4.00 12/21/16 15:12 86 20 96 Nasal Cannula 3 12/21/16 14:59 20 96 Nasal Cannula 3 12/21/16 14:59 96 Nasal Cannula 4 12/21/16 14:58 98.0 80 20 98/52 89 12/21/16 14:44 98.2 74 20 189/122 85 Room Air 12/21/16 12/22/16 19:00 07:00 Intake Total 3180 ml Output Total 1000 ml Balance 2180 ml Intake IV Total 3180 ml Output Urine Total 1000 ml Exam CONSTITUTIONAL/GENERAL: This is a frail, thin elderly female in no acute distress. TUBES/LINES/DRAINS: PIV's, nonrebreather mask, Engle catheter. SKIN: No jaundice, rashes, or lesions. Ecchymoses on upper extremities. No wounds seen anteriorly. Skin temperature appropriate. Not diaphoretic. HEAD: Atraumatic. Normocephalic. EYES: Pupils equal and round and reactive. No scleral icterus. No injection or drainage. ENT: Hearing appears normal. Nose without bleeding or purulent drainage. Mouth close, patient not cooperating with physical exam. NECK: Trachea midline. Supple. CARDIOVASCULAR: Irregular rate and rhythm. Appears A. fib. RESPIRATORY/CHEST: Symmetric, increased work of breathing with respiratory rate in the mid 20s. Coarse breath sounds. On nonrebreather mask at 10 L. GASTROINTESTINAL: Abdomen soft, round. Nontender. No guarding. Bowel sounds present. No PEG tube found, appears it was discontinued sometime after her discharge in May 2016 GENITOURINARY: Without palpable bladder distension. Engle catheter in place. MUSCULOSKELETAL: Extremities without clubbing, cyanosis. Trace edema to bilateral lower extremities. Bilateral hands contracture, moderate tremors NEUROLOGICAL: Awake, tracking with eyes, nodding head to yes/no questions. Nonverbal. Not following commands. PSYCHIATRIC: Unable to fully assess secondary to clinical condition. Appears calm. . Diagnostic Tests Laboratory Laboratory Tests Test 12/21/16 12/21/16 12/21/16 12/21/16 15:00 15:40 15:46 17:41 Urine Color YELLOW (YELLW/STRAW) Urine Turbidity CLEAR (CLEAR) Urine pH 5.0 (5.0-8.5) Urine Specific Morgan 1.014 (1.002-1.035) Urine Protein NEG mg/dL (NEG-TRACE) Urine Glucose (UA) NEG mg/dL (NEG) Urine Ketones NEG mg/dL (NEG) Urine Occult Blood NEG (NEG) Urine Nitrite NEG (NEG) Urine Bilirubin NEG (NEG) Urine Urobilinogen LESS THAN 2.0 MG/DL (LESS THAN 2.0) Urine Leukocyte Esterase NEG (NEG) Urine WBC 2 /hpf (0-5) Urine Squamous Epithelial <1 /hpf (0-5) Cells Urine Hyaline Casts 1 /lpf (RARE) Urine Mucus FEW /lpf (OCC) Microscopic Urinalysis Comment CATH-CULT NOT IND Blood Gas Puncture Site LT RADIAL Blood Gas Patient Temperature 98.6 Blood Gas HCO3 23 mmol/L (22-26) Blood Gas Base Excess -1.7 mmol/L (-2-2) Blood Gas Oxygen Saturation 85 % (90-100) Arterial Blood pH 7.35 (7.380-7.420) Arterial Blood Partial 43 mmHg (38-42) Pressure CO2 Arterial Blood Partial 51 mmHG Pressure O2 (61-120) Arterial Blood Oxygen Content 13.2 Vol % (12.0-20.0) Arterial Blood 2.0 % (0-4) Carboxyhemoglobin Arterial Blood Methemoglobin 1.7 % (0-2) Blood Gas Hemoglobin 11.1 G/DL (12.0-16.0) Blood Gas Inspired Oxygen 21 % White Blood Count 12.8 TH/MM3 (4.0-11.0) Red Blood Count 3.90 MIL/MM3 (4.00-5.30) Hemoglobin 11.0 GM/DL (11.6-15.3) Hematocrit 34.1 % (35.0-46.0) Mean Corpuscular Volume 87.5 FL (80.0-100.0) Mean Corpuscular Hemoglobin 28.2 PG (27.0-34.0) Mean Corpuscular Hemoglobin 32.3 % Concent (32.0-36.0) Red Cell Distribution Width 14.5 % (11.6-17.2) Platelet Count 226 TH/MM3 (150-450) Mean Platelet Volume 8.9 FL (7.0-11.0) Neutrophils (%) (Auto) 87.2 % (16.0-70.0) Lymphocytes (%) (Auto) 5.5 % (9.0-44.0) Monocytes (%) (Auto) 6.2 % (0.0-8.0) Eosinophils (%) (Auto) 0.5 % (0.0-4.0) Basophils (%) (Auto) 0.6 % (0.0-2.0) Neutrophils # (Auto) 11.2 TH/MM3 (1.8-7.7) Lymphocytes # (Auto) 0.7 TH/MM3 (1.0-4.8) Monocytes # (Auto) 0.8 TH/MM3 (0-0.9) Eosinophils # (Auto) 0.1 TH/MM3 (0-0.4) Basophils # (Auto) 0.1 TH/MM3 (0-0.2) CBC Comment DIFF FINAL Differential Comment Sodium Level 137 MEQ/L (136-145) Potassium Level 4.4 MEQ/L (3.5-5.1) Chloride Level 101 MEQ/L (98-107) Carbon Dioxide Level 25.4 MEQ/L (21.0-32.0) Anion Gap 11 MEQ/L (5-15) Blood Urea Nitrogen 45 MG/DL (7-18) Creatinine 2.61 MG/DL (0.50-1.00) Estimat Glomerular Filtration 17 ML/MIN (>89) Rate Random Glucose 163 MG/DL (74-106) Lactic Acid Level 2.4 mmol/L 1.2 mmol/L (0.4-2.0) (0.4-2.0) Calcium Level 8.5 MG/DL (8.5-10.1) Total Bilirubin 0.5 MG/DL (0.2-1.0) Aspartate Amino Transf 23 U/L (15-37) (AST/SGOT) Alanine Aminotransferase 17 U/L (10-53) (ALT/SGPT) Alkaline Phosphatase 121 U/L (45-117) Troponin I LESS THAN 0.02 NG/ML (0.02-0.05) Total Protein 6.0 GM/DL (6.4-8.2) Albumin 2.9 GM/DL (3.4-5.0) Test 12/21/16 12/21/16 12/22/16 12/22/16 18:45 23:15 03:26 09:43 B-Type Natriuretic Peptide 170 PG/ML (0-100) Nasal Screen MRSA (PCR) NEGATIVE (NEGATIVE) Sodium Level 143 MEQ/L (136-145) Potassium Level 3.8 MEQ/L (3.5-5.1) Chloride Level 108 MEQ/L (98-107) Carbon Dioxide Level 22.5 MEQ/L (21.0-32.0) Anion Gap 13 MEQ/L (5-15) Blood Urea Nitrogen 41 MG/DL (7-18) Creatinine 1.98 MG/DL (0.50-1.00) Estimat Glomerular Filtration 24 ML/MIN (>89) Rate Random Glucose 124 MG/DL (74-106) Lactic Acid Level 0.7 mmol/L (0.4-2.0) Calcium Level 7.7 MG/DL (8.5-10.1) Total Bilirubin 0.4 MG/DL (0.2-1.0) Aspartate Amino Transf 37 U/L (15-37) (AST/SGOT) Alanine Aminotransferase 27 U/L (10-53) (ALT/SGPT) Alkaline Phosphatase 100 U/L (45-117) Total Protein 5.4 GM/DL (6.4-8.2) Albumin 2.5 GM/DL (3.4-5.0) Blood Gas Puncture Site LT BRACHIAL Blood Gas Patient Temperature 98.6 Blood Gas HCO3 19 mmol/L (22-26) Blood Gas Base Excess -6.9 mmol/L (-2-2) Blood Gas Oxygen Saturation 95 % (90-100) Arterial Blood pH 7.25 (7.380-7.420) Arterial Blood Partial 46 mmHg (38-42) Pressure CO2 Arterial Blood Partial 107 mmHg Pressure O2 (61-120) Arterial Blood Oxygen Content 14.7 Vol % (12.0-20.0) Arterial Blood 0.8 % (0-4) Carboxyhemoglobin Arterial Blood Methemoglobin 1.4 % (0-2) Blood Gas Hemoglobin 10.9 G/DL (12.0-16.0) Oxygen Delivery Device Non-Rebreathing Mask Blood Gas Liter Flow 10 L/M Test 12/22/16 10:51 White Blood Count 11.0 TH/MM3 (4.0-11.0) Red Blood Count 3.72 MIL/MM3 (4.00-5.30) Hemoglobin 10.7 GM/DL (11.6-15.3) Hematocrit 33.0 % (35.0-46.0) Mean Corpuscular Volume 88.7 FL (80.0-100.0) Mean Corpuscular Hemoglobin 28.8 PG (27.0-34.0) Mean Corpuscular Hemoglobin 32.4 % Concent (32.0-36.0) Red Cell Distribution Width 14.7 % (11.6-17.2) Platelet Count 241 TH/MM3 (150-450) Mean Platelet Volume 8.5 FL (7.0-11.0) Neutrophils (%) (Auto) 84.7 % (16.0-70.0) Lymphocytes (%) (Auto) 8.7 % (9.0-44.0) Monocytes (%) (Auto) 5.8 % (0.0-8.0) Eosinophils (%) (Auto) 0.2 % (0.0-4.0) Basophils (%) (Auto) 0.6 % (0.0-2.0) Neutrophils # (Auto) 9.3 TH/MM3 (1.8-7.7) Lymphocytes # (Auto) 1.0 TH/MM3 (1.0-4.8) Monocytes # (Auto) 0.6 TH/MM3 (0-0.9) Eosinophils # (Auto) 0.0 TH/MM3 (0-0.4) Basophils # (Auto) 0.1 TH/MM3 (0-0.2) CBC Comment DIFF FINAL Differential Comment Sodium Level 143 MEQ/L (136-145) Potassium Level 4.1 MEQ/L (3.5-5.1) Chloride Level 110 MEQ/L (98-107) Carbon Dioxide Level 21.9 MEQ/L (21.0-32.0) Anion Gap 11 MEQ/L (5-15) Blood Urea Nitrogen 39 MG/DL (7-18) Creatinine 2.04 MG/DL (0.50-1.00) Estimat Glomerular Filtration 23 ML/MIN (>89) Rate Random Glucose 123 MG/DL (74-106) Calcium Level 7.8 MG/DL (8.5-10.1) Phosphorus Level 4.5 MG/DL (2.5-4.9) Magnesium Level 1.9 MG/DL (1.5-2.5) Result Diagram: 12/22/16 1051 12/22/16 1051 Microbiology Microbiology Date/Time Procedure Status Source Growth 12/21/16 15:00 Aerobic Blood Culture - Preliminary Resulted Blood Peripheral NO GROWTH IN 1 DAY 12/21/16 15:00 Anaerobic Blood Culture - Preliminary Resulted Blood Peripheral NO GROWTH IN 1 DAY 12/21/16 15:00 Aerobic Blood Culture - Preliminary Resulted Blood Peripheral NO GROWTH IN 1 DAY 12/21/16 15:00 Anaerobic Blood Culture - Preliminary Resulted Blood Peripheral NO GROWTH IN 1 DAY 12/21/16 15:00 Influenza Types A,B Antigen (TIFFANY) - Final Complete Nasal Washing NEGATIVE FOR FLU A AND B ANTIGEN.... 12/22/16 09:20 Gram Stain Received Sputum Expectorated Sputum Pending 12/22/16 09:20 Sputum Culture Received Sputum Expectorated Sputum Pending Imaging Last Impressions Chest X-Ray 12/21/16 1457 Signed Impressions: Service Date/Time: Wednesday, December 21, 2016 15:31 - CONCLUSION: Normal examination. Lungs are grossly clear Gabriel Gurrola MD Chest CT 12/21/16 0000 Signed Impressions: Service Date/Time: Wednesday, December 21, 2016 18:27 - CONCLUSION: 14 mm spiculated nodule left lower lobe characteristic of malignancy until proven otherwise. Bilateral lower lobe consolidating airspace disease characteristic of pneumonia. Coronary artery stent. Yuri Garsia MD Patient/Family Conference Present at Family Conference: Patient's sons Mohan Barnett and Richard. Family Conference Time (mins): 48 Family Conference Location: Bedside Issues Discussed: * Palliative care role, purpose, approach * Additional medical, psychosocial, and spiritual history * Patients general health, functional status, and cognitive changes in the months leading up to the current hospitalization * Family's understanding of the current medical problems to include acute respiratory failure, acute kidney injury, and profound physical deconditioning. * Family's understanding of prognosis * Patients goals of care as best understood from advance directives and/or conversations and/or values * Current medical treatment options and benefits/burdens of those options * Likely scenarios comparing ongoing aggressive care with a transition to comfort measures only * Questions answered to the best of my ability * Palliative care contact information provided * Hospice philosophy and benefits . Assessment and Plan Disease Oriented Problem List: (1) Respiratory failure, acute (2) Hypotension (3) Pneumonia (4) CKD (chronic kidney disease) stage 3, GFR 30-59 ml/min (5) Failure to thrive in adult (6) Dementia Symptom Scale: (1) Shortness of breath 0-10 Scale: Unable to quantify Comment: secondary to pna and likely malignancy. On O2 via nonrebreather mask. High risk for intubation. (2) Dysphagia 0-10 Scale: Unable to quantify Comment: Secondary to advanced dementia. (3) Debility 0-10 Scale: Unable to quantify Comment: Progressive since February 2016. Depending on all ADLs. Pertinent Non-Medical Issues Psychosocial: , has 5 children. Spiritual: Adventism. Legal: Living will completed. Pending copy. Ethical issues impacting care: No ethical issues have been identified. . Important Contacts Donell Borja [phone]. [facility] -Son Anibal Borja [phone]. . Prognosis Mrs. Borja is an 86-year-old female with a past medical history of right femur fracture secondary to mechanical fall s/p intramedullary nail fixation on February complicated by migration of screw and infection for which she underwent removal of hardware and intramedullary annalise fixation in April 27, 2016. All other medical history includes dementia, CAD status post stents, CHF hypertension, chronic kidney disease stage III, anxiety/depression, dysphagia with PEG tube placement in May 2016. Patient has been between acute hospitalizations, acute rehabilitation and senior living facility since February 2016. Acute decline and cognitive and functional status. Now depending on all ADLs. CT of chest on this admission reveals lung nodule highly suggestive of malignancy. Patient's overall prognosis is poor given her age, progressive decline in functional and cognitive status, chronic comorbidities, acute events, frequent hospitalizations and high likelihood of lung malignancy. Patient at very high risk for further decline, complications and . . Code Status: No Code Plan * CODE STATUS: No code. DNR/DNI. * MEDICAL DECISION-MAKING: Patient not decisional secondary to clinical condition, dementia. Family reports that girish Borja is designated healthcare surrogate. * GOALS OF CARE: Continue current medical management short of no code and allow time for clinical improvement. Family meeting, in attendance patient's sons Mohan Barnett and Adanwilbert. Girish Preston is a palliative care master certified rv technician at [facility]. Share concerns regarding patient's respiratory condition, acute kidney injury, hypotension, and profound physical deconditioning. Reviewed CT of chest results to include lung nodule highly suggestive of malignancy. Reviewed likely trajectory of illness given her multiple prior hospitalizations and complications. Family verbalized awareness that patient may not survive to discharge but are hopeful that she will recover as she has done previously. Discussed the future role of hospice should patient's symptoms burden continues to increase or there is additional functional/ clinical decline. Family amenable to transition to comfort directed care if patient's condition worsen. * SYMPTOMS: == Shortness of breath, multifactorial -secondary to pneumonia and probable lung malignancy. On O2 via nonrebreather at 10 L currently. Very high risk for intubation and mechanical ventilation. Management deferred to loom technician. == Debility, progressive since February 2016. Likely to worsen. == Dysphagia, secondary to advanced dementia and CVA. PEG tube placed on May 2016, unclear when this was discontinued. Patient presents with failure to thrive, albumin 2.6. Pending swallow evaluation. * Case discussed with Dr. Buck and bedside RN. * Palliative care contact information has been provided to family. * Palliative care will continue to follow-up with this hospitalizations for clarifications of goals of care as clinical course evolves. . Time Spent Total Floor Time (mins): 96 (Total time to include review and summarization of available medical records to include multiple prior hospitalizations, physical exam, family meeting, and case discussion with Dr. Taylor and bedside RN.) >50% Counseling/Coord of Care: Yes Thank you for the opportunity to participate in the care of Ms. Borja. Attestation To help prompt me to consider important information that might be impacting today's encounter and assessment, information from prior notes written by myself or my colleagues may have been "brought forward" into today's note. My signature on this note, however, is an attestation that I personally performed the exam, history, and/or decision-making noted today, and, unless otherwise indicated, the interactions with patient, family, and staff as well as the review of records all occurred today. I also attest that the listed assessment and stated plan reflect my best clinical judgment today based on the combination of historical information, prior notes, and today's exam/ interactions. When time spent is documented, it refers only to time spent today by the signer, or if indicated, combined time spent today by collaborating physician/nurse practitioner. Carol Gonzalez Dec 22, 2016 12:34
--- NOTE | 2016-12-22 12:40 | MB ---
cc: RAMIN JACOB M.D. DATE OF CONSULTATION 12/22/2016 DATE OF 1930 HISTORY The patient is an 86-year-old female with a past medical history of C. diff x3, coronary artery disease with previous stent placement, hypertension, anxiety, depression, chronic kidney disease and CVA. She was admitted to [facility] under hospitalist service last night for hypoxemia and acute renal failure with a creatinine of 2.61 on presentation and pneumonia. The patient had a CT scan of the chest last night which showed a 14 mm spiculated nodule left lower lobe in addition to bilateral lower lobe consolidating airspace disease characteristics of pneumonia. The patient was treated with IV hydration, however, she was not placed on antibiotics initially. When she was admitted earlier this morning, the patient became hypotensive with a blood pressure of 88/40 and she was subsequently given a one liter bolus of normal saline and transferred to [facility] [place] closer observation. In the ICU, ABG was performed on a non-rebreather mask which showed a pH of 7.25, CO2 46, pAO2 107, bicarb 19 and saturation of 95%. Her laboratory data from this morning showed improvements of her renal function with a creatinine level of 2.0 from 2.6. She was started on antibiotics earlier today. When seen, the patient remains on a non-rebreather mask and her current blood pressure is 98/53 with a MAP of 72. Most of the history was obtained from reviewing the medical records as the patient is a poor historian. PAST MEDICAL HISTORY Significant for: 1. Hypertension 2. Depression 3. Anxiety 4. Chronic kidney disease 5. CVA 6. History of C. diff 7. Coronary artery disease PAST SURGICAL HISTORY 1. Previous cardiac stent placement. 2. Previous spinal cord stimulator placement REPORTED MEDICATIONS Include: 1. Aspirin 2. Budesonide 3. Formoterol 4. Folic acid 5. Fluoxetine 6. Pravastatin 7. Hydrochlorothiazide 8. Advil 9. Norvasc 10. Valsartan 11. Coreg 12. Protonix ALLERGIES LACTOSE FAMILY HISTORY Noncontributory SOCIAL HISTORY The patient lives at home with son. REVIEW OF SYSTEMS As per HPI. The rest of the review of systems limited as patient is a poor historian. PHYSICAL EXAMINATION 86-year-old female lying in bed in mild respiratory distress. VITAL SIGNS: Temperature 98.7, pulse of 94, saturation 98% on a partial rebreather. HEENT: Atraumatic, normocephalic, pupil equal, round and active to light and accommodation. Extraocular muscles intact. Conjunctiva pink. Nonicteric sclerae. Oral mucosa normal. NECK: Supple. No JVD, adenopathy, thyromegaly. Trachea midline. CARDIOVASCULAR: Regular rate and rhythm. Normal S1-S2. No murmurs, rubs or gallops noted. PULMONARY: Bilateral equal air entry with few coarse breath sounds. ABDOMEN: Soft, nontender, no distension. Positive bowel sounds. EXTREMITIES: No cyanosis, clubbing or edema. NEUROLOGIC: No focal sensory deficits. EKG showed sinus rhythm with a rate of 68 beats per minute, low QRS voltage in the precordial leads and nonspecific T-wave abnormality. Sodium 143, potassium 4.1, chloride 110, CO2 21, BUN 39, creatinine 2.0, glucose 123, magnesium 1.9. WBC 11, hemoglobin 7.7, hematocrit 33, platelet count 241. Urinalysis negative for ketones, negative for leukocyte esterase. RADIOGRAPHY STUDIES CT chest from last night showed bilateral lower lobe consolidating airspace disease characteristic of pneumonia and 14 mm spiculated nodule left lower lobe. IMPRESSION 1. Acute hypoxemic and hypercapnic respiratory failure. 2. Bilateral lower lobe consolidating airspace disease characteristic of pneumonia. 3. A 14 mm spiculated nodule left lower lobe need to rule out malignancy. 4. Acute kidney injury. 5. Leukocytosis which is trending down. 6. Anemia 7. History of C. diff 8. History of hypertension. 9. Coronary artery disease with previous stent placement. 10. History of CVA. RECOMMENDATIONS 1. Monitor neuro status closely and avoid sedatives. 2. Wean down oxygen as tolerated and maintain sats above 92%. 3. Bronchodilators in the form of DuoNeb q4 + q2 p.r.n. for shortness of breath. 4. Aspiration precautions. If there is any worsening in clinical status, we will proceed with intubation and mechanical ventilation. 5. Monitor heart rate and blood pressure closely and maintain MAP greater than 65 mmHg. 6. Lactic acid level measured at 0.7. 7. We will obtain a 2-D echo to evaluate LV function and to rule out regional wall motion abnormalities. 8. Hold BP meds for now. 9. Monitor renal function I's and O's and avoid nephrotoxins. 10. We will obtain renal ultrasound to rule out hydronephrosis. 11. Gentle IV hydration. 12. Continue with NS at 75 mL an hour. 13. Keep n.p.o. for now until respiratory status improves. 14. Speech evaluation when appropriate. 15. Broad-spectrum antibiotics, we will place on vancomycin and Zosyn. Adjust doses per renal function and monitor for signs of infections which include fever and WBC. Followup on blood cultures from yesterday which showed no growth today date. Her nasal washing is negative for influenza. Check sputum culture and we will check strep pneumonia and Legionella urinary antigen. 16. Sliding scale insulin with Accu-Chek's if needed for glycemic control. 17. GI prophylaxis with Protonix and DVT prophylaxis with SCD's and heparin subcu. 18. Utilize peripheral IV's and place central line if indicated. 19. Further recommendations will be based on hospital course. Critical care time 35 minutes excluding procedures. MD SHREYAS De Los Santos/JORDANA /11:57 AM /12:20 PM
[2016-12-22] MEDS: metroNIDAZOLE 500 MG INJ 100 ML IV SCH ×2 (13:37→21:31)
[2016-12-22] MEDS: DEXT 5%-NACL 0.9% 1000 ML INJ 1,000 ML IV SCH (13:38)
[2016-12-22 15:24] LABS: APTT (PATIENT) 33.1 SEC (24.3-30.1); INTERNATIONAL NORMALIZED RATIO 1.7 RATIO; PROTHROMBIN TIME - PATIENT 18.7 SEC (9.8-11.6)
[2016-12-22] MEDS: levETIRAcetam INJ 500 MG in SODIUM CHLORIDE 0.9% INJ 100 ML IV SCH (19:39)
[2016-12-22] MEDS ORDERED: ASPIRIN 300 MG SUPP RECTAL ONE (20:30)
--- NOTE | 2016-12-22 20:34 | MB ---
cc: RAMIN BUCK M.D., JOHN DATE OF CONSULTATION: 12/22/2016 REASON FOR CONSULTATION Respiratory distress, pneumonia and lung nodule. HISTORY OF PRESENT ILLNESS This is an 86-year-old lady with a past history of coronary artery disease with stenting, history of hypertension, history of depression and anxiety, as well as a previous CVA and chronic kidney disease who was admitted with hypoxemia and respiratory distress and pneumonia. The patient also had elevated creatinine at 2.6 and was dehydrated. She was seen in the ER and a CT of the chest was done which showed evidence of bibasilar pulmonary infiltrates and also had a spiculated nodule in the left lower lobe. She was started on antibiotic therapy for pneumonia and is now in the Intensive Care Unit on IV fluids and nebulized bronchodilators. The patient did receive a saline infusion and her creatinine has improved today. The patient however is lethargic, she is confused and on oxygen at 5 liters. She does have some contractures of her extremities particularly the hands and the skin turgor is still diminished. PAST MEDICAL HISTORY The patient's past history includes - 1. History of hypertension. 2. History of chronic kidney disease. 3. History of anxiety and depression. 4. History of C. diff colitis. 5. Coronary artery disease. PAST SURGICAL HISTORY 1. Spinal cord stimulator placement. 2. Cardiac stenting. ALLERGIES LACTOSE. FAMILY HISTORY Unavailable. SOCIAL HISTORY No history of smoking. No significant alcohol use. REVIEW OF SYSTEMS The patient is lethargic and confused, unable to provide any details. MEDICATION LIST 1. Fluoxetine. 2. Pravastatin. 3. Hydrochlorothiazide. 4. Norvasc. 5. Valsartan. 6. Coreg. 7. Protonix. 8. Budesonide. PHYSICAL EXAMINATION GENERAL: This elderly, averagely built, white female is mildly dyspneic. VITAL SIGNS: She is on oxygen and blood pressure is 94/60, pulse is 80, respirations 24, temperature 98.2. HEENT: Head normocephalic. Pupils reactive. Tongue is dry. There are thick secretions coming out of the angle of her mouth as well as from the nose and she has some gurgling respirations. CHEST: Reveals coarse wheezes in the upper lung beasley with basilar crackles. HEART: The heart sounds are irregular, S1 and S2 with no murmur. ABDOMEN: Abdomen is soft, protuberant. No mass. No organomegaly or tenderness. EXTREMITIES: Revealed edema 1+. There are some contractures of her hands and the patient does not move her arms well and seems to have some weakness of her legs as well. Reflexes cannot be elicited. RECTAL: Exam is deferred. SKIN: Skin was dry and cool. IMPRESSION 1. Bibasilar pneumonia with hypoxemia. 2. Probable aspiration pneumonia. 3. Left lower lobe lung nodule, rule out malignancy. 4. Acute kidney injury with chronic kidney disease. 5. Sepsis. 6. History of CVA. 7. History of hypertension and coronary artery disease. PLAN 1. The patient will be maintained on O2 at 3-4 liters nasal cannula. 2. Continue with IV hydration and get MAP over 65. 3. Blood gas study to be obtained. 4. BiPAP will be used at night if necessary and nebulized DuoNeb solution was added every 6 hours. 5. She is already on antibiotic coverage which includes Vancomycin and Zosyn, and Flagyl will be added as well 500 mg every 8 hours IV. 6. Cultures on blood, sputum and urine are pending. 7. Blood sugars are being monitored. 8. A followup chest x-ray to be done in the a.m. 9. Further investigations on the lung nodule would include a PET-CT scan when she is discharged and a biopsy if it is PET-positive. Thank you Dr. Buck for this consultation. MD LAUREN Ellis/MAGNO /5:59 PM /8:11 PM
[2016-12-22] MEDS: PRAVASTATIN SOD 40 MG TAB PO SCH (21:00)
--- NOTE | 2016-12-22 21:02 | EC ---
Study Study Date:12/22/2016 STUDY CONCLUSIONS SUMMARY - Left ventricle: The cavity size was normal. Wall thickness was normal. Systolic function was normal. The estimated ejection fraction was 60%. Wall motion was normal; there were no regional wall motion abnormalities. - Mitral valve: Mildly calcified annulus. - Pulmonary arteries: PA peak pressure: 34mm Hg (S). If LV function is below 40, please consider prescribing an ACEI or ARB or document rationale for non-use. PROCEDURE DATA STUDY STATUS: Elective. Procedure: Transthoracic echocardiography. Image quality was good. Scanning was performed from the parasternal, apical, and subcostal acoustic windows. Study completion: The patient tolerated the procedure well. Transthoracic echocardiography. M-mode, complete 2D, complete spectral Doppler, and color Doppler. Height: Height: 65in. Weight: Weight: 159.7lb. Body mass index: BMI: 26.6kg/m^2. Body surface area: BSA: 1.8m^2. Patient status: Inpatient. CARDIAC ANATOMY LEFT VENTRICLE: The cavity size was normal. Wall thickness was normal. Systolic function was normal. The estimated ejection fraction was 60%. Wall motion was normal; there were no regional wall motion abnormalities. AORTIC VALVE: Trileaflet; normal thickness leaflets. Doppler: Transvalvular velocity was within the normal range. There was no stenosis. No regurgitation. Valve area: 3.26cm^2(VTI). Indexed valve area: 1.81cm^2/m^2 (VTI). Valve area: 2.94cm^2 (Vmax). Indexed valve area: 1.63cm^2/m^2 (Vmax). Mean gradient: 5mm Hg (S). AORTA: Aortic root: The aortic root was normal in size. MITRAL VALVE: Mildly calcified annulus. Doppler: Transvalvular velocity was within the normal range. There was no evidence for stenosis. Trace regurgitation. Peak gradient: 3mm Hg (D). LEFT ATRIUM: The atrium was normal in size. RIGHT VENTRICLE: The cavity size was normal. Wall thickness was normal. PULMONIC VALVE: Doppler: Transvalvular velocity was within the normal range. There was no evidence for stenosis. No regurgitation. TRICUSPID VALVE: Structurally normal valve. Doppler: Transvalvular velocity was within the normal range. Trace regurgitation. PULMONARY ARTERY: The main pulmonary artery was normal-sized. Systolic pressure was within the normal range. RIGHT ATRIUM: The atrium was normal in size. PERICARDIUM: There was no pericardial effusion. SYSTEMIC VEINS: Inferior vena cava: The vessel was normal in size. Patient weight: 159.7lb _Ejection fraction:_ 65-75% _Fractional shortening:_ 32% up to 5Kg 5-11.5Kg 11.6-22.9Kg 23-45Kg 45-57Kg Aortic Root 7-13 <17 13-22 17-27 17-27 LA diam 6-13 <23 24-38 33-47 37-40 RVID 10-17 7-15 7-15 7-18 8-17 LVIDd 12-22 <32 24-38 33-47 37-40 LVPW 2-4 3-6 5-7 6-8 7-8 IVS 2-4 3-6 5-7 6-8 7-8 BASIC MEASUREMENTS ADULT NORMAL Left ventricle LV internal dimension, ED, chordal *42.7 mm 43-52 level, PLAX LV internal dimension, ES, chordal 29.9 mm 23-38 level, PLAX Fractional shortening, chordal level, 30 % >29 PLAX LV posterior wall thickness, ED 7.92 mm IVS/LVPW ratio, ED 0.87 <1.3 Ventricular septum Septal thickness, ED 6.92 mm DOPPLER MEASUREMENTS ADULT NORMAL Main pulmonary artery Pressure, S *34 mm Hg =30 Aortic valve Peak velocity, S 157 cm/s Mean velocity, S 105 cm/s VTI, S 30.1 cm Mean gradient, S 5 mm Hg Valve area, VTI 3.26 cm^2 Valve area index, VTI 1.81 cm^2/m^2 Valve area, Vmax 2.94 cm^2 Valve area index, Vmax 1.63 cm^2/m^2 Mitral valve Peak E-wave velocity 87 cm/s Peak A-wave velocity 132 cm/s Deceleration time *120 ms 150-230 Peak gradient, D 3 mm Hg Peak E/A ratio 0.7 Tricuspid valve Regurgitant peak velocity 267 cm/s Peak RV-RA gradient, S 29 mm Hg Maximal regurgitant velocity 267 cm/s Systemic veins Estimated CVP 5 mm Hg Right ventricle RV pressure, S *34 mm Hg <30 LEGEND: Mean values are shown as u=mean value. Asterisk (*) jurado values outside specified normal range. Heather Kennedy [id number]
--- NOTE | 2016-12-22 21:06 | RADRPT ---
EXAM DATE/TIME: 12/22/2016 18:16 [place] COMPARISON: CT THORAX W/O CONTRAST, December 21, 2016, 18:27. US KIDNEY/RENAL/BLADDER, May 09, 2016, 18:11. INDICATIONS : Acute kidney injury. Abnormal labs. MEDICAL HISTORY : Hypercholesterolemia. Gastroesophageal reflux disease. Deep venous thrombosis. Dementia. Stroke. Mein gioma. Coronary artery disease. CHF. A.FIB. Hypertension. Chronic kidney disease. Arthritis. Osteopor sis. Hiatal hernia. SURGICAL HISTORY : Cholecystectomy. Hysterectomy. Neurospinal stimulator. Cardiac stents. Right hip surgery. ENCOUNTER: Initial ACUITY: 1 day PAIN SCORE: Nonresponsive. LOCATION: Bilateral flank MEASUREMENTS: RIGHT KIDNEY: 10.4 x 4.4 x 3.8 cm LEFT KIDNEY: 10.1 x 4.1 x 5.0 cm FINDINGS: RIGHT KIDNEY: Renal cortex is normal in thickness and echotexture. No hydronephrosis, stone, or mass. 2 cysts are identified in the right kidney. A 2.7 cm cyst is seen in the upper pole. A 1.5 cm cyst is seen i n the lower pole. LEFT KIDNEY: Renal cortex is normal in thickness and echotexture. No hydronephrosis, stone, or mass. 3 cysts ar e identified in the left kidney. A 1.9 cm cyst is identified in the upper pole, 1.6 cm cyst in the mi dpole and 1.6 cm cyst in lower pole. BLADDER: Engle catheter in place. CONCLUSION: No evidence of hydronephrosis. Bilateral renal cysts. Yuri Garsia MD on December 22, 2016 at 20:58 Board Certified Radiologist. This report was verified electronically.
[2016-12-22] MEDS: PANTOPRAZOLE SODIUM 40 MG VIAL IV PUSH SCH (21:40)
[2016-12-23] VITALS (9 sets, daily range): BP systolic 111–131; BP diastolic 56–59; PULSE 77–113; RESP 16–36; TEMP 95.5–98.1; O2SAT 92–100
[2016-12-23] MEDS: LAMOTRIGINE 300 MG PO SCH
[2016-12-23] MEDS: CHLORHEXIDINE GLUCONATE 2 % 1 PACK (2 CLOTHS)(taper/protocol) TOP SCH (04:00)
[2016-12-23] MEDS: RESP: ALBUTEROL 2.5 MG/IPRATROPIUM 0.5 MG NEB (SCH) NEB ×6 (04:29→23:30)
[2016-12-23] MEDS: PIPERACIL-TAZO 3.375 GM PREMIX 50 ML IV SCH ×4 (05:44→21:23)
[2016-12-23] MEDS: metroNIDAZOLE 500 MG INJ 100 ML IV SCH ×3 (05:44→21:24)
[2016-12-23] MEDS: NYSTATIN 100,000 U/GM PWD 15 GM BTL TOPICAL SCH ×3 (05:45→21:26)
[2016-12-23] MEDS: HEPARIN SODIUM - SQ 10,000 UNITS/ML VIAL SQ SCH ×3 (05:45→21:25)
[2016-12-23] MEDS: DEXT 5%-NACL 0.9% 1000 ML INJ 1,000 ML IV SCH ×2 (05:45→21:23)
[2016-12-23 06:03] LABS: ANION GAP 11 MEQ/L (5-15); BICARBONATE 22.8 MEQ/L (21.0-32.0); BLOOD UREA NITROGEN 35 MG/DL (7-18); CHLORIDE 112 MEQ/L (98-107); GLOMERULAR FILTRATION RATE 29 ML/MIN (>89); POTASSIUM 3.6 MEQ/L (3.5-5.1); SODIUM (NA) 146 MEQ/L (136-145)
[2016-12-23 07:11] LABS: AUTOMATED NEUTROPHIL # 10.8 TH/MM3 (1.8-7.7); BASOPHIL % 0.2 % (0.0-2.0); EOSINOPHIL % 0.2 % (0.0-4.0); HEMATOCRIT 31.7 % (35.0-46.0); HEMO FLAGS DIFF FINAL; LYMPH % 6.1 % (9.0-44.0); LYMPHOCYTE # 0.7 TH/MM3 (1.0-4.8); MEAN CELL VOLUME 89.9 FL (80.0-100.0); MEAN CORPUSCULAR HEMOGLOBIN 29.2 PG (27.0-34.0); MEAN CORPUSCULAR HGB CONC 32.4 % (32.0-36.0); MONO % 5.1 % (0.0-8.0); NEUT % 88.4 % (16.0-70.0); PLATELET COUNT 194 TH/MM3 (150-450); RED BLOOD COUNT 3.52 MIL/MM3 (4.00-5.30); RED CELL DISTRIBUTION WIDTH 15.1 % (11.6-17.2); WHITE BLOOD COUNT 12.2 TH/MM3 (4.0-11.0)
[2016-12-23] MEDS: RESP: BUDESONIDE 0.5 MG/2 ML NEB NEB SCH ×2 (08:11→19:59)
[2016-12-23] MEDS: levETIRAcetam INJ 500 MG in SODIUM CHLORIDE 0.9% INJ 100 ML IV SCH ×2 (08:17→21:25)
[2016-12-23] MEDS: SODIUM CHLORIDE 0.9% FLUSH 5 ML FLUSH FLUSH SCH ×2 (08:18→21:24)
[2016-12-23] MEDS: LACTOBACILLUS ACIDOPHILUS 1 GM PACKET PO SCH ×4 (08:18→21:25)
[2016-12-23] MEDS: FOLIC ACID 1 MG TAB PO SCH (08:18)
--- NOTE | 2016-12-23 10:38 | HHI.CCPN ---
Subjective Remarks/Hospital Course The patient is an 86-year-old female with a past medical history of C. diff x3, coronary artery disease with previous stent placement, hypertension, anxiety, depression, chronic kidney disease and CVA. She was admitted to [facility] under hospitalist service last night for hypoxemia and acute renal failure with a creatinine of 2.61 on presentation and pneumonia. The patient had a CT scan of the chest last night which showed a 14 mm spiculated nodule left lower lobe in addition to bilateral lower lobe consolidating airspace disease characteristics of pneumonia. The patient was treated with IV hydration, however, she was not placed on antibiotics initially. When she was admitted earlier this morning, the patient became hypotensive with a blood pressure of 88/40 and she was subsequently given a one liter bolus of normal saline and transferred to [facility] for closer observation. In the ICU, ABG was performed on a non-rebreather mask which showed a pH of 7.25, CO2 46, pAO2 107, bicarb 19 and saturation of 95%. Her laboratory data from this morning showed improvements of her renal function with a creatinine level of 2.0 from 2.6. She was started on antibiotics earlier today. When seen, the patient remains on a non-rebreather mask and her current blood pressure is 98/53 with a MAP of 72. Most of the history was obtained from reviewing the medical records as the patient is a poor historian. 12/23 Patient is on high flow oxygen with good sats. Renal function improving with Cr: 1.66 from 2.04. Afebrile. Objective Vital Signs Date Time Temp Pulse Resp B/P Pulse Ox O2 Delivery O2 Flow Rate FiO2 12/23/16 06:00 90 12/23/16 04:00 98.0 24 131/59 99 12/22/16 20:08 Partial Rebreather 12.00 12/22/16 00:57 50 Intake and Output 12/22/16 12/22/16 12/23/16 08:00 16:00 00:00 Intake Total 1180 ml 1470 ml Output Total 500 ml 1150 ml Balance 680 ml 320 ml Result Diagram: 12/23/16 0443 12/23/16 0443 Other Results Laboratory Tests Test 12/22/16 12/22/16 12/23/16 10:51 15:04 04:43 White Blood Count 11.0 TH/MM3 12.2 TH/MM3 Red Blood Count 3.72 MIL/MM3 3.52 MIL/MM3 Hemoglobin 10.7 GM/DL 10.3 GM/DL Hematocrit 33.0 % 31.7 % Mean Corpuscular Volume 88.7 FL 89.9 FL Mean Corpuscular Hemoglobin 28.8 PG 29.2 PG Mean Corpuscular Hemoglobin 32.4 % 32.4 % Concent Red Cell Distribution Width 14.7 % 15.1 % Platelet Count 241 TH/MM3 194 TH/MM3 Mean Platelet Volume 8.5 FL 8.9 FL Neutrophils (%) (Auto) 84.7 % 88.4 % Lymphocytes (%) (Auto) 8.7 % 6.1 % Monocytes (%) (Auto) 5.8 % 5.1 % Eosinophils (%) (Auto) 0.2 % 0.2 % Basophils (%) (Auto) 0.6 % 0.2 % Neutrophils # (Auto) 9.3 TH/MM3 10.8 TH/MM3 Lymphocytes # (Auto) 1.0 TH/MM3 0.7 TH/MM3 Monocytes # (Auto) 0.6 TH/MM3 0.6 TH/MM3 Eosinophils # (Auto) 0.0 TH/MM3 0.0 TH/MM3 Basophils # (Auto) 0.1 TH/MM3 0.0 TH/MM3 CBC Comment DIFF FINAL DIFF FINAL Differential Comment Sodium Level 143 MEQ/L 146 MEQ/L Potassium Level 4.1 MEQ/L 3.6 MEQ/L Chloride Level 110 MEQ/L 112 MEQ/L Carbon Dioxide Level 21.9 MEQ/L 22.8 MEQ/L Anion Gap 11 MEQ/L 11 MEQ/L Blood Urea Nitrogen 39 MG/DL 35 MG/DL Creatinine 2.04 MG/DL 1.66 MG/DL Estimat Glomerular Filtration 23 ML/MIN 29 ML/MIN Rate Random Glucose 123 MG/DL 100 MG/DL Calcium Level 7.8 MG/DL 8.1 MG/DL Phosphorus Level 4.5 MG/DL Magnesium Level 1.9 MG/DL Prothrombin Time 18.7 SEC Prothromb Time International 1.7 RATIO Ratio Activated Partial 33.1 SEC Thromboplast Time Random Vancomycin Level LESS THAN 0.8 COMMENT Imaging Last Impressions Renal Ultrasound 12/22/16 0000 Signed Impressions: Service Date/Time: Thursday, December 22, 2016 18:16 - CONCLUSION: No evidence of hydronephrosis. Bilateral renal cysts. Yuri Garsia MD Chest X-Ray 12/22/16 0000 Signed Impressions: Service Date/Time: Thursday, December 22, 2016 11:55 - CONCLUSION: Interim improvement with better aeration. Alvaro Jones MD FACR Chest CT 12/21/16 0000 Signed Impressions: Service Date/Time: Wednesday, December 21, 2016 18:27 - CONCLUSION: 14 mm spiculated nodule left lower lobe characteristic of malignancy until proven otherwise. Bilateral lower lobe consolidating airspace disease characteristic of pneumonia. Coronary artery stent. Yuri Garsia MD Objective Remarks GENERAL: Patient is 86 yo lying in be din mild resp distress SKIN: Warm and dry. HEAD: Normocephalic. EYES: No scleral icterus. No injection or drainage. NECK: Supple, trachea midline. No JVD or lymphadenopathy. CARDIOVASCULAR: Regular rate and rhythm without murmurs, gallops, or rubs. RESPIRATORY: Breath sounds equal bilaterally. No accessory muscle use. GASTROINTESTINAL: Abdomen soft, non-tender, nondistended. MUSCULOSKELETAL: No cyanosis, or edema. Neuro: No focal sensory deficits. A/P Assessment and Plan 1. Acute hypoxemic and hypercapnic respiratory failure. 2. Bilateral lower lobe consolidating airspace disease c/w pneumonia. 3. A 14 mm spiculated nodule left lower lobe need to rule out malignancy. 4. Acute kidney injury...improving 5. Mild Leukocytosis 6. Anemia 7. History of C. diff 8. History of hypertension. 9. Coronary artery disease with previous stent placement. 10. History of CVA, seizures Plan Neuro: Monitor neuro status and avoid sedatives. Continue with Keppra 500mg IV Q12 ( hx seizures) Pulm: Wean down oxygen as tolerated and maintain sats > 92%. Bronchodilators, Aspiration precautions. Pulm is following- Dr. Schneider CV: Monitor HR and BP and maintain MAP > 65 mmHg. Lactic acid level: 0.7. Echo showed EF 60% : Monitor renal function I's and O's and avoid nephrotoxins. Renal function improving with Cr: 1.66 today from 2.0 Decrease IVF D5NS@50ml/hr GI: On Puree with homey thick liquids per speech ID: Continue with abx ( Zosyn, Flagyl)monitor for signs of infections ( Fever, WBC) Nasal washing negative for influenza. check strep pneumonia and Legionella urinary antigen. Endo: SSI with Accu-Chek's if needed for glycemic control. GI prophylaxis with Protonix and DVT prophylaxis with SCD's and heparin subcu. Palliative care is following. Code status: No code DNR Will sign off and transfer care to [facility] Level 2 Jonathan Buck MD Dec 23, 2016 10:38
[2016-12-23] MEDS ORDERED: VANCOMYCIN INJ 1,250 MG in SODIUM CHLOR 0.9% 250 ML INJ 250 ML IV ONE (14:00)
--- NOTE | 2016-12-23 15:37 | HHI.HCPN ---
Reason for visit a. To assist with evaluation and management of symptoms including: Debility , dysphagia and shortness of breath. b. To assist medical decision maker(s) with: better understanding of current medical conditions; weighing benefits/burdens of medical treatment options; making medical treatment decisions. . Subjective/Interval History Patient remains in ICU. She was sitting her room, laying in bed in no acute distress. Awake, alert to self. Verbal but not always able to communicate needs secondary to confusion. She was able to tell me her name and answer some simple questions. Disoriented as to place and situation. Answered "yes" when asked about pain, reporting back pain but unable to elaborate any further. Remains on O2, nonrebreather mask at 12 L. Respiratory rate seems improved since yesterday, in the low 20s now. Stable BP. Evaluated by speech therapy this morning, on pured diet and honey thickened liquids. Patient was seen by pulmonology -Dr. Sammy Barfield, recommending medical management and BiPAP at at bedtime as needed. 2-D echo fairly unremarkable for a patient her age, EF of 60 %. Renal ultrasound negative for hydronephrosis, found bilateral renal cysts. Patient afebrile, stable BP. No new imaging. Laboratory today WBC 2.2, Hgb 10.3, platelet 194. Sodium 146, potassium 3.6. Renal function improving, BUN/ creatinine 35/1.6. . Family/friend interactions Telephone conversation with patient's son Anibal. Medical update provided. Plan to continue allowing time for clinical improvement. Family hopeful that patient's clinical condition will continue to improve. . Advance Directives Living Will: Completed, but not made available Health Care Surrogate: Completed, but not made available Durable Power of Graphic Editor: Completed, but not made available Advance Directive Specifics Date completed: Pending documentation from family. . Health Care Surrogate(s): As per family, designated healthcare surrogate this patient's son Anibal Borja. . Documented care wishes: Pending copy of living will. . Significant change in goals: No code. Continue current management short of no code. . Objective Vital Signs Date Time Temp Pulse Resp B/P Pulse Ox O2 Delivery O2 Flow Rate FiO2 12/23/16 06:00 90 12/23/16 04:00 98.0 82 24 131/59 99 12/23/16 04:00 82 12/23/16 02:00 77 12/23/16 00:00 97.5 80 36 111/56 93 12/23/16 00:00 80 12/22/16 22:00 72 12/22/16 20:08 94 Partial Rebreather 12.00 12/22/16 20:00 83 12/22/16 20:00 97.5 83 36 108/54 92 12/22/16 18:00 83 12/22/16 16:00 98.3 82 21 102/50 96 12/22/16 16:00 82 Physical Exam CONSTITUTIONAL/GENERAL: This is a frail, thin elderly female in no acute distress. Awake, alert. TUBES/LINES/DRAINS: PIV's, nonrebreather mask, Engle catheter. SKIN: No jaundice, rashes, or lesions. Ecchymoses on upper extremities. No wounds seen anteriorly. Skin temperature appropriate. Not diaphoretic. HEAD: Atraumatic. Normocephalic. EYES: Pupils equal and round and reactive. No scleral icterus. No injection or drainage. ENT: Hearing appears normal. Nose without bleeding or purulent drainage. Mouth close. NECK: Trachea midline. Supple. CARDIOVASCULAR: Irregular rate and rhythm. Edema to lower extremities. RESPIRATORY/CHEST: Symmetric, respiratory rate in the mid 20s. Fine coarse breath sounds. On nonrebreather mask at 12 L. GASTROINTESTINAL: Abdomen soft, round. Nontender. No guarding. Bowel sounds present. GENITOURINARY: Without palpable bladder distension. Engle catheter in place. Ordering amount of urine in Engle bag. MUSCULOSKELETAL: Extremities without clubbing, cyanosis. Bilateral hands contracture, moderate tremors NEUROLOGICAL: Awake, alert to self. Disoriented as to place and situation. Verbal but not always communicate needs secondary to confusion. Following some commands. PSYCHIATRIC: Unable to fully assess secondary to clinical condition. Calm, pleasant and cooperative. . Diagnostic Tests Laboratory Laboratory Tests Test 12/21/16 12/21/16 12/21/16 12/21/16 15:00 15:40 15:46 17:41 Urine Color YELLOW (YELLW/STRAW) Urine Turbidity CLEAR (CLEAR) Urine pH 5.0 (5.0-8.5) Urine Specific [place] 1.014 (1.002-1.035) Urine Protein NEG mg/dL (NEG-TRACE) Urine Glucose (UA) NEG mg/dL (NEG) Urine Ketones NEG mg/dL (NEG) Urine Occult Blood NEG (NEG) Urine Nitrite NEG (NEG) Urine Bilirubin NEG (NEG) Urine Urobilinogen LESS THAN 2.0 MG/DL (LESS THAN 2.0) Urine Leukocyte Esterase NEG (NEG) Urine WBC 2 /hpf (0-5) Urine Squamous Epithelial <1 /hpf (0-5) Cells Urine Hyaline Casts 1 /lpf (RARE) Urine Mucus FEW /lpf (OCC) Microscopic Urinalysis Comment CATH-CULT NOT IND Blood Gas Puncture Site LT RADIAL Blood Gas Patient Temperature 98.6 Blood Gas HCO3 23 mmol/L (22-26) Blood Gas Base Excess -1.7 mmol/L (-2-2) Blood Gas Oxygen Saturation 85 % (90-100) Arterial Blood pH 7.35 (7.380-7.420) Arterial Blood Partial 43 mmHg (38-42) Pressure CO2 Arterial Blood Partial 51 mmHG Pressure O2 (61-120) Arterial Blood Oxygen Content 13.2 Vol % (12.0-20.0) Arterial Blood 2.0 % (0-4) Carboxyhemoglobin Arterial Blood Methemoglobin 1.7 % (0-2) Blood Gas Hemoglobin 11.1 G/DL (12.0-16.0) Blood Gas Inspired Oxygen 21 % White Blood Count 12.8 TH/MM3 (4.0-11.0) Red Blood Count 3.90 MIL/MM3 (4.00-5.30) Hemoglobin 11.0 GM/DL (11.6-15.3) Hematocrit 34.1 % (35.0-46.0) Mean Corpuscular Volume 87.5 FL (80.0-100.0) Mean Corpuscular Hemoglobin 28.2 PG (27.0-34.0) Mean Corpuscular Hemoglobin 32.3 % Concent (32.0-36.0) Red Cell Distribution Width 14.5 % (11.6-17.2) Platelet Count 226 TH/MM3 (150-450) Mean Platelet Volume 8.9 FL (7.0-11.0) Neutrophils (%) (Auto) 87.2 % (16.0-70.0) Lymphocytes (%) (Auto) 5.5 % (9.0-44.0) Monocytes (%) (Auto) 6.2 % (0.0-8.0) Eosinophils (%) (Auto) 0.5 % (0.0-4.0) Basophils (%) (Auto) 0.6 % (0.0-2.0) Neutrophils # (Auto) 11.2 TH/MM3 (1.8-7.7) Lymphocytes # (Auto) 0.7 TH/MM3 (1.0-4.8) Monocytes # (Auto) 0.8 TH/MM3 (0-0.9) Eosinophils # (Auto) 0.1 TH/MM3 (0-0.4) Basophils # (Auto) 0.1 TH/MM3 (0-0.2) CBC Comment DIFF FINAL Differential Comment Sodium Level 137 MEQ/L (136-145) Potassium Level 4.4 MEQ/L (3.5-5.1) Chloride Level 101 MEQ/L (98-107) Carbon Dioxide Level 25.4 MEQ/L (21.0-32.0) Anion Gap 11 MEQ/L (5-15) Blood Urea Nitrogen 45 MG/DL (7-18) Creatinine 2.61 MG/DL (0.50-1.00) Estimat Glomerular Filtration 17 ML/MIN (>89) Rate Random Glucose 163 MG/DL (74-106) Lactic Acid Level 2.4 mmol/L 1.2 mmol/L (0.4-2.0) (0.4-2.0) Calcium Level 8.5 MG/DL (8.5-10.1) Total Bilirubin 0.5 MG/DL (0.2-1.0) Aspartate Amino Transf 23 U/L (15-37) (AST/SGOT) Alanine Aminotransferase 17 U/L (10-53) (ALT/SGPT) Alkaline Phosphatase 121 U/L (45-117) Troponin I LESS THAN 0.02 NG/ML (0.02-0.05) Total Protein 6.0 GM/DL (6.4-8.2) Albumin 2.9 GM/DL (3.4-5.0) Test 12/21/16 12/21/16 12/22/16 12/22/16 18:45 23:15 03:26 09:43 B-Type Natriuretic Peptide 170 PG/ML (0-100) Nasal Screen MRSA (PCR) NEGATIVE (NEGATIVE) Sodium Level 143 MEQ/L (136-145) Potassium Level 3.8 MEQ/L (3.5-5.1) Chloride Level 108 MEQ/L (98-107) Carbon Dioxide Level 22.5 MEQ/L (21.0-32.0) Anion Gap 13 MEQ/L (5-15) Blood Urea Nitrogen 41 MG/DL (7-18) Creatinine 1.98 MG/DL (0.50-1.00) Estimat Glomerular Filtration 24 ML/MIN (>89) Rate Random Glucose 124 MG/DL (74-106) Lactic Acid Level 0.7 mmol/L (0.4-2.0) Calcium Level 7.7 MG/DL (8.5-10.1) Total Bilirubin 0.4 MG/DL (0.2-1.0) Aspartate Amino Transf 37 U/L (15-37) (AST/SGOT) Alanine Aminotransferase 27 U/L (10-53) (ALT/SGPT) Alkaline Phosphatase 100 U/L (45-117) Total Protein 5.4 GM/DL (6.4-8.2) Albumin 2.5 GM/DL (3.4-5.0) Blood Gas Puncture Site LT BRACHIAL Blood Gas Patient Temperature 98.6 Blood Gas HCO3 19 mmol/L (22-26) Blood Gas Base Excess -6.9 mmol/L (-2-2) Blood Gas Oxygen Saturation 95 % (90-100) Arterial Blood pH 7.25 (7.380-7.420) Arterial Blood Partial 46 mmHg (38-42) Pressure CO2 Arterial Blood Partial 107 mmHg Pressure O2 (61-120) Arterial Blood Oxygen Content 14.7 Vol % (12.0-20.0) Arterial Blood 0.8 % (0-4) Carboxyhemoglobin Arterial Blood Methemoglobin 1.4 % (0-2) Blood Gas Hemoglobin 10.9 G/DL (12.0-16.0) Oxygen Delivery Device Non-Rebreathing Mask Blood Gas Liter Flow 10 L/M Test 12/22/16 12/22/16 12/23/16 12/23/16 10:51 15:04 04:43 11:25 White Blood Count 11.0 TH/MM3 12.2 TH/MM3 (4.0-11.0) (4.0-11.0) Red Blood Count 3.72 MIL/MM3 3.52 MIL/MM3 (4.00-5.30) (4.00-5.30) Hemoglobin 10.7 GM/DL 10.3 GM/DL (11.6-15.3) (11.6-15.3) Hematocrit 33.0 % 31.7 % (35.0-46.0) (35.0-46.0) Mean Corpuscular Volume 88.7 FL 89.9 FL (80.0-100.0) (80.0-100.0) Mean Corpuscular Hemoglobin 28.8 PG 29.2 PG (27.0-34.0) (27.0-34.0) Mean Corpuscular Hemoglobin 32.4 % 32.4 % Concent (32.0-36.0) (32.0-36.0) Red Cell Distribution Width 14.7 % 15.1 % (11.6-17.2) (11.6-17.2) Platelet Count 241 TH/MM3 194 TH/MM3 (150-450) (150-450) Mean Platelet Volume 8.5 FL 8.9 FL (7.0-11.0) (7.0-11.0) Neutrophils (%) (Auto) 84.7 % 88.4 % (16.0-70.0) (16.0-70.0) Lymphocytes (%) (Auto) 8.7 % 6.1 % (9.0-44.0) (9.0-44.0) Monocytes (%) (Auto) 5.8 % (0.0-8.0) 5.1 % (0.0-8.0) Eosinophils (%) (Auto) 0.2 % (0.0-4.0) 0.2 % (0.0-4.0) Basophils (%) (Auto) 0.6 % (0.0-2.0) 0.2 % (0.0-2.0) Neutrophils # (Auto) 9.3 TH/MM3 10.8 TH/MM3 (1.8-7.7) (1.8-7.7) Lymphocytes # (Auto) 1.0 TH/MM3 0.7 TH/MM3 (1.0-4.8) (1.0-4.8) Monocytes # (Auto) 0.6 TH/MM3 0.6 TH/MM3 (0-0.9) (0-0.9) Eosinophils # (Auto) 0.0 TH/MM3 0.0 TH/MM3 (0-0.4) (0-0.4) Basophils # (Auto) 0.1 TH/MM3 0.0 TH/MM3 (0-0.2) (0-0.2) CBC Comment DIFF FINAL DIFF FINAL Differential Comment Sodium Level 143 MEQ/L 146 MEQ/L (136-145) (136-145) Potassium Level 4.1 MEQ/L 3.6 MEQ/L (3.5-5.1) (3.5-5.1) Chloride Level 110 MEQ/L 112 MEQ/L (98-107) (98-107) Carbon Dioxide Level 21.9 MEQ/L 22.8 MEQ/L (21.0-32.0) (21.0-32.0) Anion Gap 11 MEQ/L (5-15) 11 MEQ/L (5-15) Blood Urea Nitrogen 39 MG/DL (7-18) 35 MG/DL (7-18) Creatinine 2.04 MG/DL 1.66 MG/DL (0.50-1.00) (0.50-1.00) Estimat Glomerular Filtration 23 ML/MIN (>89) 29 ML/MIN (>89) Rate Random Glucose 123 MG/DL 100 MG/DL (74-106) (74-106) Calcium Level 7.8 MG/DL 8.1 MG/DL (8.5-10.1) (8.5-10.1) Phosphorus Level 4.5 MG/DL (2.5-4.9) Magnesium Level 1.9 MG/DL (1.5-2.5) Prothrombin Time 18.7 SEC (9.8-11.6) Prothromb Time International 1.7 RATIO Ratio Activated Partial 33.1 SEC Thromboplast Time (24.3-30.1) Random Vancomycin Level LESS THAN 0.8 LESS THAN 0.8 COMMENT COMMENT Result Diagram: 12/23/16 0443 12/23/16 0443 Microbiology Microbiology Date/Time Procedure Status Source Growth 12/21/16 15:00 Aerobic Blood Culture - Preliminary Resulted Blood Peripheral NO GROWTH IN 2 DAYS 12/21/16 15:00 Anaerobic Blood Culture - Preliminary Resulted Blood Peripheral NO GROWTH IN 2 DAYS 12/21/16 15:00 Aerobic Blood Culture - Preliminary Resulted Blood Peripheral NO GROWTH IN 2 DAYS 12/21/16 15:00 Anaerobic Blood Culture - Preliminary Resulted Blood Peripheral NO GROWTH IN 2 DAYS 12/21/16 15:00 Influenza Types A,B Antigen (TIFFANY) - Final Complete Nasal Washing NEGATIVE FOR FLU A AND B ANTIGEN.... 12/22/16 09:20 Gram Stain - Final Resulted Sputum Expectorated Sputum 12/22/16 09:20 Sputum Culture - Preliminary Resulted Gram Negative [facility] Last 72 hours Impressions Renal Ultrasound 12/22/16 0000 Signed Impressions: Service Date/Time: Thursday, December 22, 2016 18:16 - CONCLUSION: No evidence of hydronephrosis. Bilateral renal cysts. Yuri Garsia MD Chest X-Ray 12/22/16 0000 Signed Impressions: Service Date/Time: Thursday, December 22, 2016 11:55 - CONCLUSION: Interim improvement with better aeration. Alvaro Jones MD FACR Chest X-Ray 12/21/16 1457 Signed Impressions: Service Date/Time: Wednesday, December 21, 2016 15:31 - CONCLUSION: Normal examination. Lungs are grossly clear Gabriel Gurrola MD Chest X-Ray 12/21/16 0000 Signed Impressions: Service Date/Time: Wednesday, December 21, 2016 22:57 - CONCLUSION: 1. Subsegmental basilar opacity most characteristic of atelectasis. No significant effusion. Virgilio Coats MD Chest CT 12/21/16 0000 Signed Impressions: Service Date/Time: Wednesday, December 21, 2016 18:27 - CONCLUSION: 14 mm spiculated nodule left lower lobe characteristic of malignancy until proven otherwise. Bilateral lower lobe consolidating airspace disease characteristic of pneumonia. Coronary artery stent. Yuri Garsia MD Assessment and Plan Disease Oriented Problem List: (1) Respiratory failure, acute (2) Hypotension (3) Pneumonia (4) CKD (chronic kidney disease) stage 3, GFR 30-59 ml/min (5) Failure to thrive in adult (6) Dementia Symptom Scale: (1) Shortness of breath 0-10 Scale: Unable to quantify Comment: secondary to pna and likely malignancy. On O2 via nonrebreather mask. (2) Dysphagia 0-10 Scale: Unable to quantify Comment: Secondary to advanced dementia. swallow evaluation today, pureed diet and thickened liquids. (3) Debility 0-10 Scale: Unable to quantify Comment: Progressive since February 2016. Depending on all ADLs. Pertinent Non-Medical Issues Psychosocial: , has 5 children. Spiritual: Amish. Legal: Living will completed. Pending copy. Ethical issues impacting care: No ethical issues have been identified. . Important Contacts Donell Borja [phone]. [facility] -Girish Borja [phone]. . Prognosis Mrs. Borja is an 86-year-old female with a past medical history of right femur fracture secondary to mechanical fall s/p intramedullary nail fixation on February complicated by migration of screw and infection for which she underwent removal of hardware and intramedullary antonio fixation in April 27, 2016. All other medical history includes dementia, CAD status post stents, CHF hypertension, chronic kidney disease stage III, anxiety/depression, dysphagia with PEG tube placement in May 2016. Patient has been between acute hospitalizations, acute rehabilitation and prison facility since February 2016. Acute decline and cognitive and functional status. Now depending on all ADLs. CT of chest on this admission reveals lung nodule highly suggestive of malignancy. Patient's overall prognosis is poor given her age, progressive decline in functional and cognitive status, chronic comorbidities, acute events, frequent hospitalizations and high likelihood of lung malignancy. Patient at very high risk for further decline, complications and . . Code Status: No Code Plan * CODE STATUS: No code. DNR/DNI. * MEDICAL DECISION-MAKING: Patient not decisional secondary to clinical condition, dementia. Family reports that girish Borja is designated healthcare surrogate. * GOALS OF CARE: Continue current medical management short of no code and allow time for clinical improvement. Patient's clinical condition appears be improving at this time. Concerns of patient's clinical condition shared yesterday during family meeting. Family optimistic but realistic. Family amenable to transition to comfort directed care with hospice should her clinical condition worsen or there is additional functional decline. * SYMPTOMS: == Shortness of breath, multifactorial -secondary to pneumonia and probable lung malignancy. On O2 via nonrebreather at 12 L currently. Pulmonology following. == Debility, progressive since February 2016. Likely to worsen. == Dysphagia, secondary to advanced dementia and CVA, history of PEG tube. Patient passed swallow evaluation today, on pured diet and honey thickened liquids. Patient presents with failure to thrive, albumin 2.6. * Palliative care contact information has been provided to family. * Palliative care will continue to follow-up with this hospitalizations for clarifications of goals of care as clinical course evolves. . Time Spent Total Floor Time (mins): 36 (Total time to include review and summarization of medical records, physical exam, telephone conversation with patient's son.) >50% Counseling/Coord of Care: Yes Attestation To help prompt me to consider important information that might be impacting today's encounter and assessment, information from prior notes written by myself or my colleagues may have been "brought forward" into today's note. My signature on this note, however, is an attestation that I personally performed the exam, history, and/or decision-making noted today, and, unless otherwise indicated, the interactions with patient, family, and staff as well as the review of records all occurred today. I also attest that the listed assessment and stated plan reflect my best clinical judgment today based on the combination of historical information, prior notes, and today's exam/ interactions. When time spent is documented, it refers only to time spent today by the signer, or if indicated, combined time spent today by collaborating physician/nurse practitioner. Carol Gonzalez Dec 23, 2016 15:37
--- NOTE | 2016-12-23 17:18 | HHI.PR ---
Subjective Remarks She seems more alert today. No fever. Output is better. On IV fluids and Antibiotics Objective Vital Signs Date Time Temp Pulse Resp B/P Pulse Ox O2 Delivery O2 Flow Rate FiO2 12/23/16 06:00 90 12/23/16 04:00 98.0 82 24 131/59 99 12/23/16 04:00 82 12/23/16 02:00 77 12/23/16 00:00 97.5 80 36 111/56 93 12/23/16 00:00 80 12/22/16 22:00 72 12/22/16 20:08 94 Partial Rebreather 12.00 12/22/16 20:00 83 12/22/16 20:00 97.5 83 36 108/54 92 12/22/16 18:00 83 I/O 12/22/16 12/22/16 12/22/16 12/23/16 12/23/16 12/23/16 07:00 15:00 23:00 07:00 15:00 23:00 Intake Total 3180 ml 744 ml 1155 ml 440 ml Output Total 1000 ml 800 ml 650 ml 450 ml Balance 2180 ml -56 ml 505 ml -10 ml Intake IV Total 3180 ml 744 ml 1155 ml 440 ml Output Urine Total 1000 ml 800 ml 650 ml 450 ml # Bowel Movements 0 Result Diagram: 12/23/16 0443 12/23/16442 Objective Remarks GENERAL: This elderly, averagely built, white female is dyspneic.Lethargic HEENT: Head normocephalic. Pupils reactive. Tongue is dry. Throat secretions CHEST: Reveals coarse wheezes in the upper lung beasley with basilar crackles. HEART: The heart sounds are irregular, S1 and S2 with no murmur. ABDOMEN: Abdomen is soft, protuberant. No mass. No organomegaly or tenderness. EXTREMITIES: Revealed edema 1+. There are some contractures of her hands and the patient does not move her arms well and seems to have some weakness of her legs as well. Reflexes cannot be elicited. RECTAL: Exam is deferred. SKIN: Skin was dry and cool. Assessment and Plan Assessment and Plan IMPRESSION 1. Bibasilar pneumonia with hypoxemia. 2. Probable aspiration pneumonia. 3. Left lower lobe lung nodule, rule out malignancy. 4. Acute kidney injury with chronic kidney disease. 5. Sepsis. 6. History of CVA. 7. History of hypertension and coronary artery disease. 8. Respiratory Failure Plan: 1. Continue antibiotics Per Dr Taylor 2. Wean O2 to Ventimask 50 %. 3. Chest X ray in am. 4. Continue Nebs qid , Duoneb. 5. Suction throat and mouth. 6. Bipap at HS if she desats <90. 7. CBC BMP. 8. Hydrocortisone IV [address] tid 9[address] PET CT as OP for lung nodule Allison Schneider MD Dec 23, 2016 17:18
[2016-12-23] MEDS: HYDROCORTISONE SOD SUCCINATE 100 MG VIAL IV PUSH SCH (21:25)
[2016-12-23] MEDS: PANTOPRAZOLE SODIUM 40 MG VIAL IV PUSH SCH (21:25)
[2016-12-23] MEDS: PRAVASTATIN SOD 40 MG TAB PO SCH (21:25)
[2016-12-24] VITALS (14 sets, daily range): BP systolic 130–176; BP diastolic 62–97; PULSE 74–113; RESP 16–24; TEMP 97–98.2; O2SAT 91–100
[2016-12-24] MEDS: LAMOTRIGINE 300 MG PO SCH (01:52)
[2016-12-24] MEDS: RESP: ALBUTEROL 2.5 MG/IPRATROPIUM 0.5 MG NEB (SCH) NEB ×6 (03:23→23:38)
[2016-12-24] MEDS: CHLORHEXIDINE GLUCONATE 2 % 1 PACK (2 CLOTHS)(taper/protocol) TOP SCH (04:00)
[2016-12-24] MEDS: HYDROCORTISONE SOD SUCCINATE 100 MG VIAL IV PUSH SCH ×3 (04:56→20:57)
[2016-12-24] MEDS: metroNIDAZOLE 500 MG INJ 100 ML IV SCH ×3 (04:56→20:58)
[2016-12-24] MEDS: PIPERACIL-TAZO 3.375 GM PREMIX 50 ML IV SCH ×4 (04:56→20:58)
[2016-12-24] MEDS: ACETAMINOPHEN 325 MG TAB PO PRN (04:56)
[2016-12-24] MEDS: NYSTATIN 100,000 U/GM PWD 15 GM BTL TOPICAL SCH ×3 (04:57→21:00)
[2016-12-24] MEDS: HEPARIN SODIUM - SQ 10,000 UNITS/ML VIAL SQ SCH ×3 (04:57→21:00)
[2016-12-24 06:07] LABS: AUTOMATED NEUTROPHIL # 12.2 TH/MM3 (1.8-7.7); BASOPHIL % 0.3 % (0.0-2.0); HEMATOCRIT 31.3 % (35.0-46.0); HEMO FLAGS DIFF FINAL; LYMPH % 3.3 % (9.0-44.0); LYMPHOCYTE # 0.4 TH/MM3 (1.0-4.8); MEAN CELL VOLUME 87.3 FL (80.0-100.0); MEAN CORPUSCULAR HEMOGLOBIN 28.5 PG (27.0-34.0); MEAN CORPUSCULAR HGB CONC 32.7 % (32.0-36.0); MONO % 1.9 % (0.0-8.0); NEUT % 94.5 % (16.0-70.0); PLATELET COUNT 237 TH/MM3 (150-450); RED BLOOD COUNT 3.59 MIL/MM3 (4.00-5.30); RED CELL DISTRIBUTION WIDTH 14.5 % (11.6-17.2); WHITE BLOOD COUNT 12.9 TH/MM3 (4.0-11.0)
--- NOTE | 2016-12-24 06:38 | RADRPT ---
EXAM DATE/TIME: 12/24/2016 05:36 [facility] COMPARISON: CHEST SINGLE AP, December 22, 2016, 11:55. INDICATIONS : Evaluate for pneumonia. MEDICAL HISTORY : None. Cardiovascular disease. Hypertension. Deep venous thrombosis. Chronic kidney disease. SURGICAL HISTORY : None. Appendectomy. Cholecystectomy. Hysterectomy. ENCOUNTER: Subsequent ACUITY: 4 - 6 days PAIN SCORE: Non-responsive. LOCATION: chest FINDINGS: Basilar infiltrates are present, right worse than left. Cardiac contours are grossly stable. CONCLUSION: Developing bilateral basilar infiltrates. Bo Figueroa MD on December 24, 2016 at 6:36 Board Certified Radiologist. This report was verified electronically.
[2016-12-24 06:58] LABS: BICARBONATE 21.6 MEQ/L (21.0-32.0); MAGNESIUM 1.8 MG/DL (1.5-2.5)
[2016-12-24 07:14] LABS: POTASSIUM 2.8 MEQ/L (3.5-5.1)
[2016-12-24] MEDS: RESP: BUDESONIDE 0.5 MG/2 ML NEB NEB SCH ×2 (07:43→20:10)
[2016-12-24] MEDS: SODIUM CHLORIDE 0.9% FLUSH 5 ML FLUSH FLUSH SCH ×2 (08:15→20:59)
[2016-12-24] MEDS: LACTOBACILLUS ACIDOPHILUS 1 GM PACKET PO SCH ×4 (08:16→20:59)
[2016-12-24] MEDS: levETIRAcetam INJ 500 MG in SODIUM CHLORIDE 0.9% INJ 100 ML IV SCH ×2 (08:16→20:58)
[2016-12-24] MEDS: FOLIC ACID 1 MG TAB PO SCH (08:16)
[2016-12-24] MEDS ORDERED: VANCOMYCIN INJ 1,250 MG in SODIUM CHLOR 0.9% 250 ML INJ 250 ML IV ONE (10:00)
[2016-12-24] MEDS: POTASSIUM CHLOR 20 MEQ PREMIX 100 ML IV SCH ×2 (10:40→14:17)
[2016-12-24] MEDS: MAGNESIUM SULFATE 1 GM PREMIX 100 ML IV SCH ×2 (10:40→14:42)
[2016-12-24] MEDS ORDERED: POTASSIUM PHOSPHATE INJ 15 MMOL in SODIUM CHLORIDE 0.9% INJ 150 ML IV ONE (12:00)
--- NOTE | 2016-12-24 13:03 | HHI.HCPN ---
Reason for visit a. To assist with evaluation and management of symptoms including: Debility , dysphagia and shortness of breath. b. To assist medical decision maker(s) with: better understanding of current medical conditions; weighing benefits/burdens of medical treatment options; making medical treatment decisions. . Subjective/Interval History Patient remains in ICU. She was found laying in bed in no acute distress. Awake, alert to self. Verbal but not always able to communicate needs secondary to confusion. Sleepy but able to tell me her name. Denying pain, shortness of breath, nausea/vomiting. Remains afebrile, highly hypertensive with SBP in the 150s-170s. Oxygen being weaned down, currently at 4 L via nasal cannula. Tolerating well. Chest x-ray today revealing developing bilateral basilar infiltrates. Remains on antibiotic therapy. Patient being followed by pulmonology -Dr. Cowan. Plan for PET/CT as outpatient for evaluation of lung nodule. Patient on pured diet. Labs today showing WBC 12.9 , Hgb 10.2, platelet count 237. Sodium 146, potassium 2.8. Improving renal function with BUN/creatinine 28/1.43. Clinical condition appears improving. Food Service Tray Attendant has signed off, HEPAS to take over. . Family/friend interactions Telephone call to patient's son Anibal Borja. Left message on [employer]. Palliative care to follow-up. 16:40. Received return call from Anibal. Medical update provided. Reviewed current treatment plan and goals of care. Goals remain unchanged. All questions answered in great detail. . Advance Directives Living Will: Completed, but not made available Health Care Surrogate: Completed, but not made available Durable Power of Package Sealer Machine: Completed, but not made available Advance Directive Specifics Date completed: Pending documentation from family. . Health Care Surrogate(s): As per family, designated healthcare surrogate this patient's son Anibal Borja. . Documented care wishes: Pending copy of living will. . Significant change in goals: No code. DNR/DNI. Goal is to allow time for clinical improvement. . Objective Vital Signs Date Time Temp Pulse Resp B/P Pulse Ox O2 Delivery O2 Flow Rate FiO2 12/24/16 12:00 98.0 80 18 176/86 95 12/24/16 12:00 81 12/24/16 10:00 113 12/24/16 08:00 77 12/24/16 08:00 97.0 77 20 159/97 93 12/24/16 07:43 94 Nasal Cannula 4.00 12/24/16 06:00 83 12/24/16 04:00 87 12/24/16 04:00 98.1 87 21 152/71 100 12/24/16 02:00 83 12/24/16 00:00 98.0 85 24 130/62 91 Manual Cuff/Auscultation 12/24/16 00:00 85 12/23/16 22:00 85 12/23/16 20:04 Nasal Cannula 4.00 12/23/16 20:00 98.0 89 25 128/59 92 Manual Cuff/Auscultation 12/23/16 20:00 89 12/23/16 16:10 95.5 113 24 126/58 100 Intake & Output 12/24/16 12/24/16 07:00 19:00 Intake Total 1614 ml Output Total 625 ml Balance 989 ml Intake Oral 480 ml IV Total 1134 ml Output Urine Total 625 ml # Bowel Movements 1 Physical Exam CONSTITUTIONAL/GENERAL: This is a frail, thin elderly female in no acute distress. Awake, alert. Following some commands. TUBES/LINES/DRAINS: PIV's, nasal cannula, Engle catheter. SKIN: No jaundice, rashes, or lesions. Ecchymoses on upper extremities. No wounds seen anteriorly. Skin temperature appropriate. Not diaphoretic. HEAD: Atraumatic. Normocephalic. EYES: Pupils equal and round and reactive. No scleral icterus. No injection or drainage. ENT: Hearing appears normal. Nose without bleeding or purulent drainage. Mouth close. NECK: Trachea midline. Supple. CARDIOVASCULAR: Irregular rate and rhythm. Edema to lower extremities. RESPIRATORY/CHEST: Symmetric, unlabored respirations. Fine coarse breath sounds. On oxygen via nasal cannula. GASTROINTESTINAL: Abdomen soft, round. Nontender. No guarding. Bowel sounds present. GENITOURINARY: Without palpable bladder distension. Engle catheter in place. MUSCULOSKELETAL: Extremities without clubbing, cyanosis. Bilateral hands contracture, moderate tremors NEUROLOGICAL: Awake, alert to self. Disoriented as to place and situation. Verbal but not always communicate needs secondary to confusion. Following some commands. PSYCHIATRIC: Unable to fully assess secondary to clinical condition. Calm, pleasant and cooperative. . Diagnostic Tests Laboratory Laboratory Tests Test 12/21/16 12/21/16 12/21/16 12/21/16 15:00 15:40 15:46 17:41 Urine Color YELLOW (YELLW/STRAW) Urine Turbidity CLEAR (CLEAR) Urine pH 5.0 (5.0-8.5) Urine Specific [place] 1.014 (1.002-1.035) Urine Protein NEG mg/dL (NEG-TRACE) Urine Glucose (UA) NEG mg/dL (NEG) Urine Ketones NEG mg/dL (NEG) Urine Occult Blood NEG (NEG) Urine Nitrite NEG (NEG) Urine Bilirubin NEG (NEG) Urine Urobilinogen LESS THAN 2.0 MG/DL (LESS THAN 2.0) Urine Leukocyte Esterase NEG (NEG) Urine WBC 2 /hpf (0-5) Urine Squamous Epithelial <1 /hpf (0-5) Cells Urine Hyaline Casts 1 /lpf (RARE) Urine Mucus FEW /lpf (OCC) Microscopic Urinalysis Comment CATH-CULT NOT IND Blood Gas Puncture Site LT RADIAL Blood Gas Patient Temperature 98.6 Blood Gas HCO3 23 mmol/L (22-26) Blood Gas Base Excess -1.7 mmol/L (-2-2) Blood Gas Oxygen Saturation 85 % (90-100) Arterial Blood pH 7.35 (7.380-7.420) Arterial Blood Partial 43 mmHg (38-42) Pressure CO2 Arterial Blood Partial 51 mmHG Pressure O2 (61-120) Arterial Blood Oxygen Content 13.2 Vol % (12.0-20.0) Arterial Blood 2.0 % (0-4) Carboxyhemoglobin Arterial Blood Methemoglobin 1.7 % (0-2) Blood Gas Hemoglobin 11.1 G/DL (12.0-16.0) Blood Gas Inspired Oxygen 21 % White Blood Count 12.8 TH/MM3 (4.0-11.0) Red Blood Count 3.90 MIL/MM3 (4.00-5.30) Hemoglobin 11.0 GM/DL (11.6-15.3) Hematocrit 34.1 % (35.0-46.0) Mean Corpuscular Volume 87.5 FL (80.0-100.0) Mean Corpuscular Hemoglobin 28.2 PG (27.0-34.0) Mean Corpuscular Hemoglobin 32.3 % Concent (32.0-36.0) Red Cell Distribution Width 14.5 % (11.6-17.2) Platelet Count 226 TH/MM3 (150-450) Mean Platelet Volume 8.9 FL (7.0-11.0) Neutrophils (%) (Auto) 87.2 % (16.0-70.0) Lymphocytes (%) (Auto) 5.5 % (9.0-44.0) Monocytes (%) (Auto) 6.2 % (0.0-8.0) Eosinophils (%) (Auto) 0.5 % (0.0-4.0) Basophils (%) (Auto) 0.6 % (0.0-2.0) Neutrophils # (Auto) 11.2 TH/MM3 (1.8-7.7) Lymphocytes # (Auto) 0.7 TH/MM3 (1.0-4.8) Monocytes # (Auto) 0.8 TH/MM3 (0-0.9) Eosinophils # (Auto) 0.1 TH/MM3 (0-0.4) Basophils # (Auto) 0.1 TH/MM3 (0-0.2) CBC Comment DIFF FINAL Differential Comment Sodium Level 137 MEQ/L (136-145) Potassium Level 4.4 MEQ/L (3.5-5.1) Chloride Level 101 MEQ/L (98-107) Carbon Dioxide Level 25.4 MEQ/L (21.0-32.0) Anion Gap 11 MEQ/L (5-15) Blood Urea Nitrogen 45 MG/DL (7-18) Creatinine 2.61 MG/DL (0.50-1.00) Estimat Glomerular Filtration 17 ML/MIN (>89) Rate Random Glucose 163 MG/DL (74-106) Lactic Acid Level 2.4 mmol/L 1.2 mmol/L (0.4-2.0) (0.4-2.0) Calcium Level 8.5 MG/DL (8.5-10.1) Total Bilirubin 0.5 MG/DL (0.2-1.0) Aspartate Amino Transf 23 U/L (15-37) (AST/SGOT) Alanine Aminotransferase 17 U/L (10-53) (ALT/SGPT) Alkaline Phosphatase 121 U/L (45-117) Troponin I LESS THAN 0.02 NG/ML (0.02-0.05) Total Protein 6.0 GM/DL (6.4-8.2) Albumin 2.9 GM/DL (3.4-5.0) Test 12/21/16 12/21/16 12/22/16 12/22/16 18:45 23:15 03:26 09:43 B-Type Natriuretic Peptide 170 PG/ML (0-100) Nasal Screen MRSA (PCR) NEGATIVE (NEGATIVE) Sodium Level 143 MEQ/L (136-145) Potassium Level 3.8 MEQ/L (3.5-5.1) Chloride Level 108 MEQ/L (98-107) Carbon Dioxide Level 22.5 MEQ/L (21.0-32.0) Anion Gap 13 MEQ/L (5-15) Blood Urea Nitrogen 41 MG/DL (7-18) Creatinine 1.98 MG/DL (0.50-1.00) Estimat Glomerular Filtration 24 ML/MIN (>89) Rate Random Glucose 124 MG/DL (74-106) Lactic Acid Level 0.7 mmol/L (0.4-2.0) Calcium Level 7.7 MG/DL (8.5-10.1) Total Bilirubin 0.4 MG/DL (0.2-1.0) Aspartate Amino Transf 37 U/L (15-37) (AST/SGOT) Alanine Aminotransferase 27 U/L (10-53) (ALT/SGPT) Alkaline Phosphatase 100 U/L (45-117) Total Protein 5.4 GM/DL (6.4-8.2) Albumin 2.5 GM/DL (3.4-5.0) Blood Gas Puncture Site LT BRACHIAL Blood Gas Patient Temperature 98.6 Blood Gas HCO3 19 mmol/L (22-26) Blood Gas Base Excess -6.9 mmol/L (-2-2) Blood Gas Oxygen Saturation 95 % (90-100) Arterial Blood pH 7.25 (7.380-7.420) Arterial Blood Partial 46 mmHg (38-42) Pressure CO2 Arterial Blood Partial 107 mmHg Pressure O2 (61-120) Arterial Blood Oxygen Content 14.7 Vol % (12.0-20.0) Arterial Blood 0.8 % (0-4) Carboxyhemoglobin Arterial Blood Methemoglobin 1.4 % (0-2) Blood Gas Hemoglobin 10.9 G/DL (12.0-16.0) Oxygen Delivery Device Non-Rebreathing Mask Blood Gas Liter Flow 10 L/M Test 12/22/16 12/22/16 12/23/16 12/23/16 10:51 15:04 04:43 11:25 White Blood Count 11.0 TH/MM3 12.2 TH/MM3 (4.0-11.0) (4.0-11.0) Red Blood Count 3.72 MIL/MM3 3.52 MIL/MM3 (4.00-5.30) (4.00-5.30) Hemoglobin 10.7 GM/DL 10.3 GM/DL (11.6-15.3) (11.6-15.3) Hematocrit 33.0 % 31.7 % (35.0-46.0) (35.0-46.0) Mean Corpuscular Volume 88.7 FL 89.9 FL (80.0-100.0) (80.0-100.0) Mean Corpuscular Hemoglobin 28.8 PG 29.2 PG (27.0-34.0) (27.0-34.0) Mean Corpuscular Hemoglobin 32.4 % 32.4 % Concent (32.0-36.0) (32.0-36.0) Red Cell Distribution Width 14.7 % 15.1 % (11.6-17.2) (11.6-17.2) Platelet Count 241 TH/MM3 194 TH/MM3 (150-450) (150-450) Mean Platelet Volume 8.5 FL 8.9 FL (7.0-11.0) (7.0-11.0) Neutrophils (%) (Auto) 84.7 % 88.4 % (16.0-70.0) (16.0-70.0) Lymphocytes (%) (Auto) 8.7 % 6.1 % (9.0-44.0) (9.0-44.0) Monocytes (%) (Auto) 5.8 % (0.0-8.0) 5.1 % (0.0-8.0) Eosinophils (%) (Auto) 0.2 % (0.0-4.0) 0.2 % (0.0-4.0) Basophils (%) (Auto) 0.6 % (0.0-2.0) 0.2 % (0.0-2.0) Neutrophils # (Auto) 9.3 TH/MM3 10.8 TH/MM3 (1.8-7.7) (1.8-7.7) Lymphocytes # (Auto) 1.0 TH/MM3 0.7 TH/MM3 (1.0-4.8) (1.0-4.8) Monocytes # (Auto) 0.6 TH/MM3 0.6 TH/MM3 (0-0.9) (0-0.9) Eosinophils # (Auto) 0.0 TH/MM3 0.0 TH/MM3 (0-0.4) (0-0.4) Basophils # (Auto) 0.1 TH/MM3 0.0 TH/MM3 (0-0.2) (0-0.2) CBC Comment DIFF FINAL DIFF FINAL Differential Comment Sodium Level 143 MEQ/L 146 MEQ/L (136-145) (136-145) Potassium Level 4.1 MEQ/L 3.6 MEQ/L (3.5-5.1) (3.5-5.1) Chloride Level 110 MEQ/L 112 MEQ/L (98-107) (98-107) Carbon Dioxide Level 21.9 MEQ/L 22.8 MEQ/L (21.0-32.0) (21.0-32.0) Anion Gap 11 MEQ/L (5-15) 11 MEQ/L (5-15) Blood Urea Nitrogen 39 MG/DL (7-18) 35 MG/DL (7-18) Creatinine 2.04 MG/DL 1.66 MG/DL (0.50-1.00) (0.50-1.00) Estimat Glomerular Filtration 23 ML/MIN (>89) 29 ML/MIN (>89) Rate Random Glucose 123 MG/DL 100 MG/DL (74-106) (74-106) Calcium Level 7.8 MG/DL 8.1 MG/DL (8.5-10.1) (8.5-10.1) Phosphorus Level 4.5 MG/DL (2.5-4.9) Magnesium Level 1.9 MG/DL (1.5-2.5) Prothrombin Time 18.7 SEC (9.8-11.6) Prothromb Time International 1.7 RATIO Ratio Activated Partial 33.1 SEC Thromboplast Time (24.3-30.1) Random Vancomycin Level LESS THAN 0.8 LESS THAN 0.8 COMMENT COMMENT Test 12/24/16 05:21 White Blood Count 12.9 TH/MM3 (4.0-11.0) Red Blood Count 3.59 MIL/MM3 (4.00-5.30) Hemoglobin 10.2 GM/DL (11.6-15.3) Hematocrit 31.3 % (35.0-46.0) Mean Corpuscular Volume 87.3 FL (80.0-100.0) Mean Corpuscular Hemoglobin 28.5 PG (27.0-34.0) Mean Corpuscular Hemoglobin 32.7 % Concent (32.0-36.0) Red Cell Distribution Width 14.5 % (11.6-17.2) Platelet Count 237 TH/MM3 (150-450) Mean Platelet Volume 8.3 FL (7.0-11.0) Neutrophils (%) (Auto) 94.5 % (16.0-70.0) Lymphocytes (%) (Auto) 3.3 % (9.0-44.0) Monocytes (%) (Auto) 1.9 % (0.0-8.0) Eosinophils (%) (Auto) 0.0 % (0.0-4.0) Basophils (%) (Auto) 0.3 % (0.0-2.0) Neutrophils # (Auto) 12.2 TH/MM3 (1.8-7.7) Lymphocytes # (Auto) 0.4 TH/MM3 (1.0-4.8) Monocytes # (Auto) 0.2 TH/MM3 (0-0.9) Eosinophils # (Auto) 0.0 TH/MM3 (0-0.4) Basophils # (Auto) 0.0 TH/MM3 (0-0.2) CBC Comment DIFF FINAL Differential Comment Sodium Level 146 MEQ/L (136-145) Potassium Level 2.8 MEQ/L (3.5-5.1) Chloride Level 112 MEQ/L (98-107) Carbon Dioxide Level 21.6 MEQ/L (21.0-32.0) Anion Gap 12 MEQ/L (5-15) Blood Urea Nitrogen 28 MG/DL (7-18) Creatinine 1.43 MG/DL (0.50-1.00) Estimat Glomerular Filtration 35 ML/MIN (>89) Rate Random Glucose 146 MG/DL (74-106) Calcium Level 8.5 MG/DL (8.5-10.1) Phosphorus Level 1.5 MG/DL (2.5-4.9) Magnesium Level 1.8 MG/DL (1.5-2.5) Random Vancomycin Level 10.4 COMMENT Result Diagram: 12/24/16 0521 12/24/16 0521 Microbiology Microbiology Date/Time Procedure Status Source Growth 12/21/16 15:00 Aerobic Blood Culture - Preliminary Resulted Blood Peripheral NO GROWTH IN 3 DAYS 12/21/16 15:00 Anaerobic Blood Culture - Preliminary Resulted Blood Peripheral NO GROWTH IN 3 DAYS 12/21/16 15:00 Aerobic Blood Culture - Preliminary Resulted Blood Peripheral NO GROWTH IN 3 DAYS 12/21/16 15:00 Anaerobic Blood Culture - Preliminary Resulted Blood Peripheral NO GROWTH IN 3 DAYS 12/21/16 15:00 Influenza Types A,B Antigen (TIFFANY) - Final Complete Nasal Washing NEGATIVE FOR FLU A AND B ANTIGEN.... 12/22/16 09:20 Gram Stain - Final Complete Sputum Expectorated Sputum 12/22/16 09:20 Sputum Culture - Final Complete Klebsiella Pneumoniae Imaging Last 48 hours Impressions Chest X-Ray 12/24/16 0600 Signed Impressions: Service Date/Time: Saturday, December 24, 2016 05:36 - CONCLUSION: Developing bilateral basilar infiltrates. Bo Figueroa MD Assessment and Plan Disease Oriented Problem List: (1) Respiratory failure, acute (2) Hypotension (3) Pneumonia (4) CKD (chronic kidney disease) stage 3, GFR 30-59 ml/min (5) Failure to thrive in adult (6) Dementia Symptom Scale: (1) Shortness of breath 0-10 Scale: Unable to quantify Comment: secondary to pna and likely malignancy. Improving. Tolerating oxygen via nasal cannula 4 L. (2) Dysphagia 0-10 Scale: Unable to quantify Comment: Secondary to advanced dementia. Pureed diet and thickened liquids. (3) Debility 0-10 Scale: Unable to quantify Comment: Progressive since February 2016. Depending on all ADLs. Pertinent Non-Medical Issues Psychosocial: , has 5 children. Spiritual: Holiness. Legal: Living will completed. Pending copy. Ethical issues impacting care: No ethical issues have been identified. . Important Contacts Donell Borja [phone]. [facility] -Girish Borja [phone]. . Prognosis Mrs. Borja is an 86-year-old female with a past medical history of right femur fracture secondary to mechanical fall s/p intramedullary nail fixation on February complicated by migration of screw and infection for which she underwent removal of hardware and intramedullary annalise fixation in April 27, 2016. All other medical history includes dementia, CAD status post stents, CHF hypertension, chronic kidney disease stage III, anxiety/depression, dysphagia with PEG tube placement in May 2016. Patient has been between acute hospitalizations, acute rehabilitation and half-way facility since February 2016. Acute decline and cognitive and functional status. Now depending on all ADLs. CT of chest on this admission reveals lung nodule highly suggestive of malignancy. Patient's overall prognosis is poor given her age, progressive decline in functional and cognitive status, chronic comorbidities, acute events, frequent hospitalizations and high likelihood of lung malignancy. Patient at very high risk for further decline, complications and . . Code Status: No Code Plan * CODE STATUS: No code. DNR/DNI. * MEDICAL DECISION-MAKING: Patient not decisional secondary to clinical condition, dementia. Family reports that girish Borja is designated healthcare surrogate. * GOALS OF CARE: Continue current medical management short of no code and allow time for clinical improvement. Patient's clinical condition appears be improving at this time. Likely disease trajectory discussed with family. Family optimistic but realistic. Family amenable to transition to comfort- directed care with hospice should her clinical condition worsen or there is additional functional decline. * SYMPTOMS: == Shortness of breath, multifactorial -secondary to pneumonia and probable lung malignancy. Appears to be improving, tolerating oxygen via nasal cannula 4 L. Pulmonology following. == Debility, progressive since February 2016. Likely to worsen. == Dysphagia, secondary to advanced dementia and CVA, history of PEG tube. On pured diet and honey thickened liquids. Patient presents with failure to thrive, albumin 2.6. * Palliative care contact information has been provided to family. * Palliative care will continue to follow-up with this hospitalizations for clarifications of goals of care as clinical course evolves. . Time Spent Total Floor Time (mins): 36 (Total time to include review of medical records, physical exam, case discussion with bedside RN and telephone conversation with girish Barnett. ) >50% Counseling/Coord of Care: Yes Attestation To help prompt me to consider important information that might be impacting today's encounter and assessment, information from prior notes written by myself or my colleagues may have been "brought forward" into today's note. My signature on this note, however, is an attestation that I personally performed the exam, history, and/or decision-making noted today, and, unless otherwise indicated, the interactions with patient, family, and staff as well as the review of records all occurred today. I also attest that the listed assessment and stated plan reflect my best clinical judgment today based on the combination of historical information, prior notes, and today's exam/ interactions. When time spent is documented, it refers only to time spent today by the signer, or if indicated, combined time spent today by collaborating physician/nurse practitioner. Carol Gonzalez Dec 24, 2016 13:03
[2016-12-24] MEDS ORDERED: MAGNESIUM SULFATE 1 GM PREMIX 100 ML ONE (14:38)
[2016-12-24] MEDS: DEXT 5%-NACL 0.9% 1000 ML INJ 1,000 ML IV SCH (16:40)
--- NOTE | 2016-12-24 18:08 | HHI.PR ---
Subjective Remarks This is a 86 female admitted due to Shortness of breath for five days, she has Hypertension, Depression Anxiety disorder Chronic kidney disease, CVA, recurrent C Diff x 3. CAD status post PCI and stent placement, status post Hip fracture with multiple hospitalizations, complicated with C diff, aspiration Pneumonia, came with Cough, Shortness of breath Altered mental status, seen in the room in the presence of her Son and Nurse Mr. Davis anna, tday replaced her Electrolytes as per her son she is DNR. Objective Vital Signs Date Time Temp Pulse Resp B/P Pulse Ox O2 Delivery O2 Flow Rate FiO2 12/24/16 14:00 74 12/24/16 12:00 98.0 80 18 176/86 95 12/24/16 12:00 81 12/24/16 10:00 113 12/24/16 08:00 77 12/24/16 08:00 97.0 77 20 159/97 93 12/24/16 07:43 94 Nasal Cannula 4.00 12/24/16 06:00 83 12/24/16 04:00 87 12/24/16 04:00 98.1 87 21 152/71 100 12/24/16 02:00 83 12/24/16 00:00 98.0 85 24 130/62 91 Manual Cuff/Auscultation 12/24/16 00:00 85 12/23/16 22:00 85 12/23/16 20:04 Nasal Cannula 4.00 12/23/16 20:00 98.0 89 25 128/59 92 Manual Cuff/Auscultation 12/23/16 20:00 89 I/O 12/23/16 12/23/16 12/23/16 12/24/16 12/24/16 12/24/16 07:00 15:00 23:00 07:00 15:00 23:00 Intake Total 1155 ml 1177 ml 877 ml 1352 ml Output Total 650 ml 725 ml 350 ml 250 ml Balance 505 ml 452 ml 527 ml 1102 ml Intake Oral 240 ml 240 ml 200 ml IV Total 1155 ml 937 ml 637 ml 1152 ml Output Urine Total 650 ml 725 ml 350 ml 250 ml # Bowel Movements 0 1 Result Diagram: 12/24/16 0521 12/24/16 05 Imaging Last Impressions Chest X-Ray 12/24/16 0600 Signed Impressions: Service Date/Time: Saturday, December 24, 2016 05:36 - CONCLUSION: Developing bilateral basilar infiltrates. Bo Figueroa MD Renal Ultrasound 12/22/16 0000 Signed Impressions: Service Date/Time: Thursday, December 22, 2016 18:16 - CONCLUSION: No evidence of hydronephrosis. Bilateral renal cysts. Yuri Garsia MD Chest CT 12/21/16 0000 Signed Impressions: Service Date/Time: Wednesday, December 21, 2016 18:27 - CONCLUSION: 14 mm spiculated nodule left lower lobe characteristic of malignancy until proven otherwise. Bilateral lower lobe consolidating airspace disease characteristic of pneumonia. Coronary artery stent. Yuri Garsia MD Procedures No procedures. Other Results Laboratory Tests Test 12/21/16 12/21/16 12/21/16 12/21/16 15:00 15:40 15:46 18:45 Urine Color YELLOW Urine Turbidity CLEAR Urine pH 5.0 Urine Specific [place] 1.014 Urine Protein NEG mg/dL Urine Glucose (UA) NEG mg/dL Urine Ketones NEG mg/dL Urine Occult Blood NEG Urine Nitrite NEG Urine Bilirubin NEG Urine Urobilinogen LESS THAN 2.0 MG/DL Urine Leukocyte Esterase NEG Urine WBC 2 /hpf Urine Squamous Epithelial <1 /hpf Cells Urine Hyaline Casts 1 /lpf Urine Mucus FEW /lpf Microscopic Urinalysis Comment CATH-CULT NOT IND Blood Gas Inspired Oxygen 21 % Troponin I LESS THAN 0.02 NG/ML B-Type Natriuretic Peptide 170 PG/ML Test 12/21/16 12/22/16 12/22/16 12/22/16 23:15 03:26 09:43 15:04 Nasal Screen MRSA (PCR) NEGATIVE Lactic Acid Level 0.7 mmol/L Total Bilirubin 0.4 MG/DL Aspartate Amino Transf 37 U/L (AST/SGOT) Alanine Aminotransferase 27 U/L (ALT/SGPT) Alkaline Phosphatase 100 U/L Total Protein 5.4 GM/DL Albumin 2.5 GM/DL Blood Gas Puncture Site LT BRACHIAL Blood Gas Patient Temperature 98.6 Blood Gas HCO3 19 mmol/L Blood Gas Base Excess -6.9 mmol/L Blood Gas Oxygen Saturation 95 % Arterial Blood pH 7.25 Arterial Blood Partial 46 mmHg Pressure CO2 Arterial Blood Partial 107 mmHg Pressure O2 Arterial Blood Oxygen Content 14.7 Vol % Arterial Blood 0.8 % Carboxyhemoglobin Arterial Blood Methemoglobin 1.4 % Blood Gas Hemoglobin 10.9 G/DL Oxygen Delivery Device Non-Rebreathing Mask Blood Gas Liter Flow 10 L/M Prothrombin Time 18.7 SEC Prothromb Time International 1.7 RATIO Ratio Activated Partial 33.1 SEC Thromboplast Time Test 12/24/16 05:21 White Blood Count 12.9 TH/MM3 Red Blood Count 3.59 MIL/MM3 Hemoglobin 10.2 GM/DL Hematocrit 31.3 % Mean Corpuscular Volume 87.3 FL Mean Corpuscular Hemoglobin 28.5 PG Mean Corpuscular Hemoglobin 32.7 % Concent Red Cell Distribution Width 14.5 % Platelet Count 237 TH/MM3 Mean Platelet Volume 8.3 FL Neutrophils (%) (Auto) 94.5 % Lymphocytes (%) (Auto) 3.3 % Monocytes (%) (Auto) 1.9 % Eosinophils (%) (Auto) 0.0 % Basophils (%) (Auto) 0.3 % Neutrophils # (Auto) 12.2 TH/MM3 Lymphocytes # (Auto) 0.4 TH/MM3 Monocytes # (Auto) 0.2 TH/MM3 Eosinophils # (Auto) 0.0 TH/MM3 Basophils # (Auto) 0.0 TH/MM3 CBC Comment DIFF FINAL Differential Comment Sodium Level 146 MEQ/L Potassium Level 2.8 MEQ/L Chloride Level 112 MEQ/L Carbon Dioxide Level 21.6 MEQ/L Anion Gap 12 MEQ/L Blood Urea Nitrogen 28 MG/DL Creatinine 1.43 MG/DL Estimat Glomerular Filtration 35 ML/MIN Rate Random Glucose 146 MG/DL Calcium Level 8.5 MG/DL Phosphorus Level 1.5 MG/DL Magnesium Level 1.8 MG/DL Random Vancomycin Level 10.4 COMMENT Objective Remarks GENERAL: This is a ill-appearing 86-year-old female patient SKIN: Scattered ecchymosis bilateral upper extremities HEAD: Atraumatic. Normocephalic. No temporal or scalp tenderness. EYES: Extraocular motions intact. No scleral icterus. No injection or drainage. CARDIOVASCULAR: Regular rate and rhythm without murmurs, gallops, or rubs. RESPIRATORY: Extrabronchial breath sounds diffusely rhonchus GASTROINTESTINAL: Abdomen soft, non-tender, nondistended. MUSCULOSKELETAL: Trace bilateral extremity edema. No calf tenderness. Negative Homans sign bilaterally. NEUROLOGICAL: Oriented to person and place only. Motor and sensory grossly within normal limits. 3 out of 5 muscle strength in all muscle groups. Medications and IVs Current Medications Medications (Trade) Dose Ordered Sig/Bucky Route Start Time Stop Time Status Last Admin (NS Flush) 2 ml UNSCH PRN FLUSH 12/21/16 17:45 (NS Flush) 2 ml BID FLUSH 12/21/16 21:00 12/24/16 08:15 (Tylenol) 650 mg Q4H PRN PO 12/21/16 17:45 (Colace) 100 mg Q12H PO 12/21/16 21:00 Hold (Heparin Inj) 5,000 units Q8H SQ 12/21/16 22:00 12/24/16 14:17 (Tylenol) 650 mg Q6H PRN PO 12/21/16 17:45 12/24/16 04:56 (Narcan Inj) 0.4 mg UNSCH PRN IV 12/21/16 17:45 (Aspirin) 325 mg DAILY PO 12/22/16 09:00 Hold (PROzac) 20 mg BID PO 12/21/16 21:00 Hold (Folate) 1 mg DAILY PO 12/22/16 09:00 12/24/16 08:16 (Pamelor) 20 mg HS PO 12/21/16 21:00 Hold (Pravachol) 40 mg HS PO 12/21/16 21:00 12/23/16 21:25 Patient Own Medication PT OWN MED: (Formoterol ... BID NEB 12/21/16 21:00 Hold Patient Own Medication PT OWN MED: (Lamotrig... DAILY@00 PO 12/22/16 00:00 12/24/16 01:52 Miscellaneous Information Patient in critical care unit? Ass... Q361D XX 12/21/16 22:45 (Chlorhexidine 2% Cloth) 3 pack DAILY@04 TOP 12/22/16 04:00 12/26/16 04:01 12/24/16 04:00 (Chlorhexidine 2% Cloth) 3 pack UNSCH PRN TOP 12/21/16 22:45 12/26/16 22:44 Lactobacillus Acidophilus 1 gm 1 gm QID PO 12/22/16 09:00 12/24/16 16:40 (Levophed-Dextrose Drip) 250 ml @ 0 mls/hr TITRATE IV 12/22/16 00:15 (Brethine Inj) 1 mg UNSCH PRN SQ 12/22/16 00:15 Nystatin 1 applic 1 applic Q8HR TOPICAL 12/22/16 06:00 12/24/16 14:19 Piperacillin Sod/ Tazobactam Sod 50 ml @ 100 mls/hr Q6H IV 12/22/16 10:00 12/24/16 16:40 Pharmacy Profile Note 0 ml @ 0 mls/hr UNSCH OTHER 12/22/16 12:00 Metronidazole 100 ml @ 100 mls/hr Q8H IV 12/22/16 13:00 12/24/16 14:17 Dextrose/Sodium Chloride 1,000 ml @ 50 mls/hr Q20H IV 12/22/16 13:15 12/24/16 16:40 (Keppra Inj/NS Inj) 105 ml @ 420 mls/hr Q12HR IV 12/22/16 21:00 12/24/16 08:16 (Protonix Inj) 40 mg Q24H IV PUSH 12/22/16 21:00 12/23/16 21:25 (SoluCORTEF INJ) 100 mg Q8HR IV PUSH 12/23/16 22:00 12/24/16 14:18 A/P Assessment and Plan 1. Pneumonia Bibasilar with Hypoxemia, youth career specialist following, Probable Aspiration pneumonia continue antibiotics. Bronchodilator, MUcolytic and incentive spirometry. Steroids. 2. Left lower lobe lung nodule rule out malignancy. 3. Acute Kidney Injury with chronic kidney disease III 4. Sepsis continue antibiotics. Zosyn, Metronidazole and Vancomycin. Sputum Culture growing Klebsiella Pneumonia. 5. CVA by history 6. Hypertension Uncontrolled better in the afternoon. 7. Acute respiratory failure 8. Dementia Stable 9. electrolyte derangement replaced and following DVT prophylaxis with Heparin. Discharge Planning Awaiting final by youth career specialist for discharge. Luciano Shine MD Dec 24, 2016 18:08
[2016-12-24] MEDS: PANTOPRAZOLE SODIUM 40 MG VIAL IV PUSH SCH (20:59)
[2016-12-24] MEDS: PRAVASTATIN SOD 40 MG TAB PO SCH (20:59)
[2016-12-25] VITALS (11 sets, daily range): BP systolic 149–166; BP diastolic 67–79; PULSE 78–96; RESP 18–28; TEMP 97.4–98; O2SAT 92–98
[2016-12-25] MEDS: LAMOTRIGINE 300 MG PO SCH (00:22)
[2016-12-25] MEDS: RESP: ALBUTEROL 2.5 MG/IPRATROPIUM 0.5 MG NEB (SCH) NEB ×4 (03:55→19:45)
[2016-12-25] MEDS: CHLORHEXIDINE GLUCONATE 2 % 1 PACK (2 CLOTHS)(taper/protocol) TOP SCH (04:00)
[2016-12-25] MEDS: PIPERACIL-TAZO 3.375 GM PREMIX 50 ML IV SCH ×4 (04:30→23:12)
[2016-12-25] MEDS ORDERED: HALOPERIDOL LACTATE 5 MG/ML AMP IM ONE (05:15)
[2016-12-25] MEDS: HEPARIN SODIUM - SQ 10,000 UNITS/ML VIAL SQ SCH ×3 (05:21→21:53)
[2016-12-25] MEDS: HYDROCORTISONE SOD SUCCINATE 100 MG VIAL IV PUSH SCH ×3 (05:21→21:53)
[2016-12-25] MEDS: metroNIDAZOLE 500 MG INJ 100 ML IV SCH ×3 (05:22→21:34)
[2016-12-25] MEDS: NYSTATIN 100,000 U/GM PWD 15 GM BTL TOPICAL SCH ×2 (05:23→14:00)
[2016-12-25] MEDS: FOLIC ACID 1 MG TAB PO SCH (08:42)
[2016-12-25] MEDS: levETIRAcetam INJ 500 MG in SODIUM CHLORIDE 0.9% INJ 100 ML IV SCH ×2 (08:42→21:23)
[2016-12-25] MEDS: guaiFENesin E.R. 600 MG TAB PO SCH ×2 (08:42→21:34)
[2016-12-25] MEDS: SODIUM CHLORIDE 0.9% FLUSH 5 ML FLUSH FLUSH SCH ×2 (08:43→21:34)
[2016-12-25] MEDS: LACTOBACILLUS ACIDOPHILUS 1 GM PACKET PO SCH ×3 (08:44→21:00)
[2016-12-25 09:57] LABS: BICARBONATE 23.2 MEQ/L (21.0-32.0); MAGNESIUM 2.1 MG/DL (1.5-2.5); POTASSIUM 3.2 MEQ/L (3.5-5.1)
[2016-12-25] MEDS ORDERED: VANCOMYCIN INJ 1,250 MG in SODIUM CHLOR 0.9% 250 ML INJ 250 ML IV ONE (11:00)
[2016-12-25] MEDS: RESP: BUDESONIDE 0.5 MG/2 ML NEB NEB SCH ×2 (12:03→19:49)
--- NOTE | 2016-12-25 18:13 | HHI.PR ---
Subjective Remarks This is a 86 female admitted due to Shortness of breath for five days, she has Hypertension, Depression Anxiety disorder Chronic kidney disease, CVA, recurrent C Diff x 3. CAD status post PCI and stent placement, status post Hip fracture with multiple hospitalizations, complicated with C diff, aspiration Pneumonia, came with Cough, Shortness of breath Altered mental status, Patient seen in her bedroom, still awaiting final recommendations by lan specialist she is stable and no Nausea, vomit or diarrhea. Not able to get too much of activity will continue working with Physical Therapy. Objective Vital Signs Date Time Temp Pulse Resp B/P Pulse Ox O2 Delivery O2 Flow Rate FiO2 12/25/16 16:00 97.9 94 22 149/67 12/25/16 12:00 97.8 78 20 165/79 12/25/16 08:26 92 Nasal Cannula 2.00 12/25/16 08:00 97.4 80 18 166/79 12/25/16 08:00 80 12/25/16 06:00 83 12/25/16 04:00 89 12/25/16 04:00 97.8 89 18 150/79 92 12/25/16 02:00 84 12/25/16 00:00 85 12/25/16 00:00 98.0 85 24 150/68 98 12/24/16 22:00 83 12/24/16 20:11 99 Nasal Cannula 2.00 12/24/16 20:00 97.8 78 20 147/66 99 12/24/16 20:00 78 I/O 12/24/16 12/24/16 12/24/16 12/25/16 12/25/16 12/25/16 07:00 15:00 23:00 07:00 15:00 23:00 Intake Total 877 ml 1352 ml 1104 ml 429 ml 936 ml Output Total 350 ml 250 ml 200 ml 220 ml Balance 527 ml 1102 ml 904 ml 209 ml 936 ml Intake Oral 240 ml 200 ml 240 ml 200 ml 240 ml IV Total 637 ml 1152 ml 864 ml 229 ml 696 ml Output Urine Total 350 ml 250 ml 200 ml 220 ml # Voids 3 # Bowel Movements 1 1 2 Result Diagram: 12/24/16 0521 12/25/16 0907 Imaging Last Impressions Chest X-Ray 12/24/16 0600 Signed Impressions: Service Date/Time: Saturday, December 24, 2016 05:36 - CONCLUSION: Developing bilateral basilar infiltrates. Bo Figueroa MD Renal Ultrasound 12/22/16 0000 Signed Impressions: Service Date/Time: Thursday, December 22, 2016 18:16 - CONCLUSION: No evidence of hydronephrosis. Bilateral renal cysts. Yuri Garsia MD Chest CT 12/21/16 0000 Signed Impressions: Service Date/Time: Wednesday, December 21, 2016 18:27 - CONCLUSION: 14 mm spiculated nodule left lower lobe characteristic of malignancy until proven otherwise. Bilateral lower lobe consolidating airspace disease characteristic of pneumonia. Coronary artery stent. Yuri Garsia MD Procedures No procedures. Other Results Laboratory Tests Test 12/21/16 12/22/16 12/22/16 12/22/16 23:15 03:26 09:43 15:04 Nasal Screen MRSA (PCR) NEGATIVE Lactic Acid Level 0.7 mmol/L Total Bilirubin 0.4 MG/DL Aspartate Amino Transf 37 U/L (AST/SGOT) Alanine Aminotransferase 27 U/L (ALT/SGPT) Alkaline Phosphatase 100 U/L Albumin 2.5 GM/DL Blood Gas Puncture Site LT BRACHIAL Blood Gas Patient Temperature 98.6 Blood Gas HCO3 19 mmol/L Blood Gas Base Excess -6.9 mmol/L Blood Gas Oxygen Saturation 95 % Arterial Blood pH 7.25 Arterial Blood Partial 46 mmHg Pressure CO2 Arterial Blood Partial 107 mmHg Pressure O2 Arterial Blood Oxygen Content 14.7 Vol % Arterial Blood 0.8 % Carboxyhemoglobin Arterial Blood Methemoglobin 1.4 % Blood Gas Hemoglobin 10.9 G/DL Oxygen Delivery Device Non-Rebreathing Mask Blood Gas Liter Flow 10 L/M Prothrombin Time 18.7 SEC Prothromb Time International 1.7 RATIO Ratio Activated Partial 33.1 SEC Thromboplast Time Test 12/24/16 12/25/16 12/26/16 05:21 09:07 09:00 White Blood Count 12.9 TH/MM3 Red Blood Count 3.59 MIL/MM3 Hemoglobin 10.2 GM/DL Hematocrit 31.3 % Mean Corpuscular Volume 87.3 FL Mean Corpuscular Hemoglobin 28.5 PG Mean Corpuscular Hemoglobin 32.7 % Concent Red Cell Distribution Width 14.5 % Platelet Count 237 TH/MM3 Mean Platelet Volume 8.3 FL Neutrophils (%) (Auto) 94.5 % Lymphocytes (%) (Auto) 3.3 % Monocytes (%) (Auto) 1.9 % Eosinophils (%) (Auto) 0.0 % Basophils (%) (Auto) 0.3 % Neutrophils # (Auto) 12.2 TH/MM3 Lymphocytes # (Auto) 0.4 TH/MM3 Monocytes # (Auto) 0.2 TH/MM3 Eosinophils # (Auto) 0.0 TH/MM3 Basophils # (Auto) 0.0 TH/MM3 CBC Comment DIFF FINAL Differential Comment Magnesium Level 2.1 MG/DL Sodium Level 151 MEQ/L Potassium Level 3.3 MEQ/L Chloride Level 116 MEQ/L Carbon Dioxide Level 22.1 MEQ/L Anion Gap 13 MEQ/L Blood Urea Nitrogen 20 MG/DL Creatinine 1.20 MG/DL Estimat Glomerular Filtration 43 ML/MIN Rate Random Glucose 93 MG/DL Calcium Level 7.4 MG/DL Protein Corrected Calcium 9.7 MG/DL Phosphorus Level 1.7 MG/DL Total Protein 3.4 GM/DL Random Vancomycin Level 15.8 COMMENT Objective Remarks GENERAL: This is a ill-appearing 86-year-old female patient SKIN: Scattered ecchymosis bilateral upper extremities HEAD: Atraumatic. Normocephalic. No temporal or scalp tenderness. EYES: Extraocular motions intact. No scleral icterus. No injection or drainage. CARDIOVASCULAR: Regular rate and rhythm without murmurs, gallops, or rubs. RESPIRATORY: Extrabronchial breath sounds diffusely rhonchus GASTROINTESTINAL: Abdomen soft, non-tender, nondistended. MUSCULOSKELETAL: Trace bilateral extremity edema. No calf tenderness. Negative Homans sign bilaterally. NEUROLOGICAL: Oriented to person and place only. Motor and sensory grossly within normal limits. 3 out of 5 muscle strength in all muscle groups. Medications and IVs Current Medications Medications (Trade) Dose Ordered Sig/Bucky Route Start Time Stop Time Status Last Admin (NS Flush) 2 ml UNSCH PRN FLUSH 12/21/16 17:45 (NS Flush) 2 ml BID FLUSH 12/21/16 21:00 12/26/16 08:08 (Tylenol) 650 mg Q4H PRN PO 12/21/16 17:45 (Colace) 100 mg Q12H PO 12/21/16 21:00 Hold (Heparin Inj) 5,000 units Q8H SQ 12/21/16 22:00 12/26/16 05:59 (Tylenol) 650 mg Q6H PRN PO 12/21/16 17:45 12/25/16 21:45 (Narcan Inj) 0.4 mg UNSCH PRN IV 12/21/16 17:45 (Aspirin) 325 mg DAILY PO 12/22/16 09:00 Hold (PROzac) 20 mg BID PO 12/21/16 21:00 Hold (Folate) 1 mg DAILY PO 12/22/16 09:00 12/26/16 08:07 (Pamelor) 20 mg HS PO 12/21/16 21:00 Hold (Pravachol) 40 mg HS PO 12/21/16 21:00 12/25/16 21:34 Patient Own Medication PT OWN MED: (Formoterol ... BID NEB 12/21/16 21:00 Hold Patient Own Medication PT OWN MED: (Lamotrig... DAILY@00 PO 12/22/16 00:00 12/25/16 00:22 Miscellaneous Information Patient in critical care unit? Ass... Q361D XX 12/21/16 22:45 (Chlorhexidine 2% Cloth) 3 pack UNSCH PRN TOP 12/21/16 22:45 12/26/16 22:44 Lactobacillus Acidophilus 1 gm 1 gm QID PO 12/22/16 09:00 12/26/16 08:06 (Levophed-Dextrose Drip) 250 ml @ 0 mls/hr TITRATE IV 12/22/16 00:15 (Brethine Inj) 1 mg UNSCH PRN SQ 12/22/16 00:15 Nystatin 1 applic 1 applic Q8HR TOPICAL 12/22/16 06:00 12/26/16 14:48 Piperacillin Sod/ Tazobactam Sod 50 ml @ 100 mls/hr Q6H IV 12/22/16 10:00 12/26/16 08:07 Pharmacy Profile Note 0 ml @ 0 mls/hr UNSCH OTHER 12/22/16 12:00 Metronidazole 100 ml @ 100 mls/hr Q8H IV 12/22/16 13:00 12/26/16 05:11 Dextrose/Sodium Chloride 1,000 ml @ 50 mls/hr Q20H IV 12/22/16 13:15 12/26/16 04:29 (Keppra Inj/NS Inj) 105 ml @ 420 mls/hr Q12HR IV 12/22/16 21:00 12/26/16 08:07 (Protonix Inj) 40 mg Q24H IV PUSH 12/22/16 21:00 12/25/16 21:28 (SoluCORTEF INJ) 100 mg Q8HR IV PUSH 12/23/16 22:00 12/26/16 05:59 Guaifenesin 600 mg 600 mg BID PO 12/25/16 09:00 12/26/16 08:07 (Vancomycin Inj/ NS 250 ml Inj) 262.5 ml @ 250 mls/hr Q24H IV 12/26/16 14:00 12/26/16 14:48 Miscellaneous Information SPECIFIC LAB TO BE DRAWN:VANCOMY... ONCE ONCE XX 12/28/16 13:45 12/28/16 13:46 A/P Assessment and Plan 1. Pneumonia Bibasilar with Hypoxemia, enrollment specialist following, Probable Aspiration pneumonia continue antibiotics. Bronchodilator, Mucolytic and incentive spirometry. Steroids. 2. Left lower lobe lung nodule rule out malignancy. 3. Acute Kidney Injury with chronic kidney disease III stable 4. Sepsis continue antibiotics. Zosyn, Metronidazole and Vancomycin. Sputum Culture growing Klebsiella Pneumonia. continue present care. 5. CVA by history 6. Hypertension better control. 7. Acute respiratory failure Improved. 8. Dementia Stable 9. electrolyte derangement replaced and following Potassium 3.2 given potassium follow in am tomorrow. DVT prophylaxis with Heparin. Discuss with manager beauty and relatives next Tuesday for discharge Discharge Planning Awaiting final by enrollment specialist for discharge. Luciano Shine MD Dec 25, 2016 18:13
[2016-12-25] MEDS ORDERED: POTASSIUM PHOSPHATE INJ 15 MMOL in SODIUM CHLORIDE 0.9% INJ 150 ML IV ONE (20:00)
[2016-12-25] MEDS: PANTOPRAZOLE SODIUM 40 MG VIAL IV PUSH SCH (21:28)
[2016-12-25] MEDS: PRAVASTATIN SOD 40 MG TAB PO SCH (21:34)
[2016-12-25] MEDS: ACETAMINOPHEN 325 MG TAB PO PRN (21:45)
[2016-12-25] MEDS ORDERED: LORazepam 2 MG/ML VIAL IV PUSH ONE (21:45)
[2016-12-26] VITALS (12 sets, daily range): BP systolic 157–180; BP diastolic 72–82; PULSE 89–97; RESP 20–32; TEMP 98–98.7; O2SAT 88–94
[2016-12-26] MEDS: LAMOTRIGINE 300 MG PO SCH
[2016-12-26] MEDS: RESP: ALBUTEROL 2.5 MG/IPRATROPIUM 0.5 MG NEB (SCH) NEB ×3 (00:26→08:12)
[2016-12-26] MEDS: CHLORHEXIDINE GLUCONATE 2 % 1 PACK (2 CLOTHS)(taper/protocol) TOP SCH (04:00)
[2016-12-26] MEDS: NYSTATIN 100,000 U/GM PWD 15 GM BTL TOPICAL SCH ×4 (04:29→22:00)
[2016-12-26] MEDS: DEXT 5%-NACL 0.9% 1000 ML INJ 1,000 ML IV SCH (04:29)
[2016-12-26] MEDS: PIPERACIL-TAZO 3.375 GM PREMIX 50 ML IV SCH ×4 (04:29→23:59)
[2016-12-26] MEDS: metroNIDAZOLE 500 MG INJ 100 ML IV SCH ×3 (05:11→21:49)
[2016-12-26] MEDS: HYDROCORTISONE SOD SUCCINATE 100 MG VIAL IV PUSH SCH ×3 (05:59→21:59)
[2016-12-26] MEDS: HEPARIN SODIUM - SQ 10,000 UNITS/ML VIAL SQ SCH ×3 (05:59→21:59)
[2016-12-26] MEDS: LACTOBACILLUS ACIDOPHILUS 1 GM PACKET PO SCH ×5 (08:06→21:00)
[2016-12-26] MEDS: FOLIC ACID 1 MG TAB PO SCH (08:07)
[2016-12-26] MEDS: guaiFENesin E.R. 600 MG TAB PO SCH ×2 (08:07→21:48)
[2016-12-26] MEDS: levETIRAcetam INJ 500 MG in SODIUM CHLORIDE 0.9% INJ 100 ML IV SCH ×2 (08:07→21:48)
[2016-12-26] MEDS: SODIUM CHLORIDE 0.9% FLUSH 5 ML FLUSH FLUSH SCH ×2 (08:08→21:48)
[2016-12-26] MEDS: RESP: BUDESONIDE 0.5 MG/2 ML NEB NEB SCH ×2 (08:12→20:21)
[2016-12-26 10:31] LABS: BICARBONATE 22.1 MEQ/L (21.0-32.0)
[2016-12-26 10:34] LABS: POTASSIUM 3.3 MEQ/L (3.5-5.1)
[2016-12-26 11:02] LABS: CALCIUM-PROTEIN CORRECTED 9.7 MG/DL (8.5-10.1)
[2016-12-26] MEDS: RESP: ALBUTEROL 2.5 MG/IPRATROPIUM 0.5 MG NEB (PRN) NEB ×2 (12:38→20:21)
[2016-12-26] MEDS ORDERED: VANCOMYCIN INJ 1,250 MG in SODIUM CHLOR 0.9% 250 ML INJ 250 ML IV SCH (14:00)
[2016-12-26] MEDS ORDERED: MAGNESIUM SULFATE 1 GM PREMIX 100 ML IV SCH (15:30)
--- NOTE | 2016-12-26 15:32 | HHI.PR ---
Subjective Remarks This is a 86 female admitted due to Shortness of breath for five days, she has Hypertension, Depression Anxiety disorder Chronic kidney disease, CVA, recurrent C Diff x 3. CAD status post PCI and stent placement, status post Hip fracture with multiple hospitalizations, complicated with C diff, aspiration Pneumonia, came with Cough, Shortness of breath Altered mental status. patient seen in the room and discussed with nurse Miss Bravo no new issues, awaiting final by Palliative care her Sputum culture growing Klebsiella Pneumonia Discontinued Vancomycin and will Continue Zosyn and Flagyl and follow in am for discharge continue Potassium and Magnesium replacement. Objective Vital Signs Date Time Temp Pulse Resp B/P Pulse Ox O2 Delivery O2 Flow Rate FiO2 12/26/16 10:00 92 12/26/16 08:13 92 Nasal Cannula 3.00 12/26/16 08:00 89 12/26/16 08:00 98.0 89 20 157/72 12/26/16 08:00 Nasal Cannula 3.00 12/26/16 06:00 90 12/26/16 04:00 97 12/26/16 04:00 98.7 97 28 157/76 88 12/26/16 02:00 92 12/26/16 00:00 93 12/26/16 00:00 98.2 93 28 158/74 93 12/25/16 22:45 26 12/25/16 22:00 96 12/25/16 20:00 97.9 83 28 165/72 97 12/25/16 20:00 97 Nasal Cannula 2.50 12/25/16 20:00 83 12/25/16 19:45 93 Nasal Cannula 2.00 12/25/16 16:00 97.9 94 22 149/67 I/O 12/25/16 12/25/16 12/25/16 12/26/16 12/26/16 12/26/16 07:00 15:00 23:00 07:00 15:00 23:00 Intake Total 429 ml 936 ml 1714 ml 722 ml Output Total 220 ml 100 ml Balance 209 ml 936 ml 1614 ml 722 ml Intake Oral 200 ml 240 ml 360 ml 30 ml IV Total 229 ml 696 ml 1354 ml 692 ml Output Urine Total 220 ml Stool Total 100 ml # Voids 3 2 1 # Bowel Movements 2 1 0 Result Diagram: 12/24/16 0521 12/26/16 0900 Imaging Last Impressions Chest X-Ray 12/24/16 0600 Signed Impressions: Service Date/Time: Saturday, December 24, 2016 05:36 - CONCLUSION: Developing bilateral basilar infiltrates. Bo Figueroa MD Renal Ultrasound 12/22/16 0000 Signed Impressions: Service Date/Time: Thursday, December 22, 2016 18:16 - CONCLUSION: No evidence of hydronephrosis. Bilateral renal cysts. Yuri Garsia MD Chest CT 12/21/16 0000 Signed Impressions: Service Date/Time: Wednesday, December 21, 2016 18:27 - CONCLUSION: 14 mm spiculated nodule left lower lobe characteristic of malignancy until proven otherwise. Bilateral lower lobe consolidating airspace disease characteristic of pneumonia. Coronary artery stent. Yuri Garsia MD Procedures No procedures. Other Results Laboratory Tests Test 12/21/16 12/22/16 12/22/16 12/22/16 23:15 03:26 09:43 15:04 Nasal Screen MRSA (PCR) NEGATIVE Lactic Acid Level 0.7 mmol/L Total Bilirubin 0.4 MG/DL Aspartate Amino Transf 37 U/L (AST/SGOT) Alanine Aminotransferase 27 U/L (ALT/SGPT) Alkaline Phosphatase 100 U/L Albumin 2.5 GM/DL Blood Gas Puncture Site LT BRACHIAL Blood Gas Patient Temperature 98.6 Blood Gas HCO3 19 mmol/L Blood Gas Base Excess -6.9 mmol/L Blood Gas Oxygen Saturation 95 % Arterial Blood pH 7.25 Arterial Blood Partial 46 mmHg Pressure CO2 Arterial Blood Partial 107 mmHg Pressure O2 Arterial Blood Oxygen Content 14.7 Vol % Arterial Blood 0.8 % Carboxyhemoglobin Arterial Blood Methemoglobin 1.4 % Blood Gas Hemoglobin 10.9 G/DL Oxygen Delivery Device Non-Rebreathing Mask Blood Gas Liter Flow 10 L/M Prothrombin Time 18.7 SEC Prothromb Time International 1.7 RATIO Ratio Activated Partial 33.1 SEC Thromboplast Time Test 12/24/16 12/25/16 12/26/16 05:21 09:07 09:00 White Blood Count 12.9 TH/MM3 Red Blood Count 3.59 MIL/MM3 Hemoglobin 10.2 GM/DL Hematocrit 31.3 % Mean Corpuscular Volume 87.3 FL Mean Corpuscular Hemoglobin 28.5 PG Mean Corpuscular Hemoglobin 32.7 % Concent Red Cell Distribution Width 14.5 % Platelet Count 237 TH/MM3 Mean Platelet Volume 8.3 FL Neutrophils (%) (Auto) 94.5 % Lymphocytes (%) (Auto) 3.3 % Monocytes (%) (Auto) 1.9 % Eosinophils (%) (Auto) 0.0 % Basophils (%) (Auto) 0.3 % Neutrophils # (Auto) 12.2 TH/MM3 Lymphocytes # (Auto) 0.4 TH/MM3 Monocytes # (Auto) 0.2 TH/MM3 Eosinophils # (Auto) 0.0 TH/MM3 Basophils # (Auto) 0.0 TH/MM3 CBC Comment DIFF FINAL Differential Comment Magnesium Level 2.1 MG/DL Sodium Level 151 MEQ/L Potassium Level 3.3 MEQ/L Chloride Level 116 MEQ/L Carbon Dioxide Level 22.1 MEQ/L Anion Gap 13 MEQ/L Blood Urea Nitrogen 20 MG/DL Creatinine 1.20 MG/DL Estimat Glomerular Filtration 43 ML/MIN Rate Random Glucose 93 MG/DL Calcium Level 7.4 MG/DL Protein Corrected Calcium 9.7 MG/DL Phosphorus Level 1.7 MG/DL Total Protein 3.4 GM/DL Random Vancomycin Level 15.8 COMMENT Objective Remarks GENERAL: patient stable, Moderate Disorientation, no Distress. SKIN: Scattered ecchymosis bilateral upper extremities HEAD: Atraumatic. Normocephalic. No temporal or scalp tenderness. EYES: Extraocular motions intact. No scleral icterus. No injection or drainage. CARDIOVASCULAR: Irregular rate and rhythm, No murmur. RESPIRATORY: Extrabronchial breath sounds diffusely rhonchus GASTROINTESTINAL: Abdomen soft, non-tender, nondistended. MUSCULOSKELETAL: Trace bilateral extremity edema. No calf tenderness. Negative Homans sign bilaterally. NEUROLOGICAL: Alert in person but not in place or time. No focal deficits. Medications and IVs Current Medications Medications (Trade) Dose Ordered Sig/Bucky Route Start Time Stop Time Status Last Admin (NS Flush) 2 ml UNSCH PRN FLUSH 12/21/16 17:45 (NS Flush) 2 ml BID FLUSH 12/21/16 21:00 12/26/16 08:08 (Tylenol) 650 mg Q4H PRN PO 12/21/16 17:45 (Colace) 100 mg Q12H PO 12/21/16 21:00 Hold (Heparin Inj) 5,000 units Q8H SQ 12/21/16 22:00 12/26/16 05:59 (Tylenol) 650 mg Q6H PRN PO 12/21/16 17:45 12/25/16 21:45 (Narcan Inj) 0.4 mg UNSCH PRN IV 12/21/16 17:45 (Aspirin) 325 mg DAILY PO 12/22/16 09:00 Hold (PROzac) 20 mg BID PO 12/21/16 21:00 Hold (Folate) 1 mg DAILY PO 12/22/16 09:00 12/26/16 08:07 (Pamelor) 20 mg HS PO 12/21/16 21:00 Hold (Pravachol) 40 mg HS PO 12/21/16 21:00 12/25/16 21:34 Patient Own Medication PT OWN MED: (Formoterol ... BID NEB 12/21/16 21:00 Hold Patient Own Medication PT OWN MED: (Lamotrig... DAILY@00 PO 12/22/16 00:00 12/25/16 00:22 Miscellaneous Information Patient in critical care unit? Ass... Q361D XX 12/21/16 22:45 (Chlorhexidine 2% Cloth) 3 pack UNSCH PRN TOP 12/21/16 22:45 12/26/16 22:44 Lactobacillus Acidophilus 1 gm 1 gm QID PO 12/22/16 09:00 12/26/16 08:06 (Levophed-Dextrose Drip) 250 ml @ 0 mls/hr TITRATE IV 12/22/16 00:15 (Brethine Inj) 1 mg UNSCH PRN SQ 12/22/16 00:15 Nystatin 1 applic 1 applic Q8HR TOPICAL 12/22/16 06:00 12/26/16 14:48 Piperacillin Sod/ Tazobactam Sod 50 ml @ 100 mls/hr Q6H IV 12/22/16 10:00 12/26/16 08:07 Pharmacy Profile Note 0 ml @ 0 mls/hr UNSCH OTHER 12/22/16 12:00 Metronidazole 100 ml @ 100 mls/hr Q8H IV 12/22/16 13:00 12/26/16 05:11 Dextrose/Sodium Chloride 1,000 ml @ 50 mls/hr Q20H IV 12/22/16 13:15 12/26/16 04:29 (Keppra Inj/NS Inj) 105 ml @ 420 mls/hr Q12HR IV 12/22/16 21:00 12/26/16 08:07 (Protonix Inj) 40 mg Q24H IV PUSH 12/22/16 21:00 12/25/16 21:28 (SoluCORTEF INJ) 100 mg Q8HR IV PUSH 12/23/16 22:00 12/26/16 05:59 Guaifenesin 600 mg 600 mg BID PO 12/25/16 09:00 12/26/16 08:07 (Vancomycin Inj/ NS 250 ml Inj) 262.5 ml @ 250 mls/hr Q24H IV 12/26/16 14:00 12/26/16 14:48 Miscellaneous Information SPECIFIC LAB TO BE DRAWN:VANCOMY... ONCE ONCE XX 12/28/16 13:45 12/28/16 13:46 A/P Assessment and Plan 1. Pneumonia Bibasilar with Hypoxemia, donation specialist following, Probable Aspiration pneumonia continue antibiotics. Bronchodilator, Mucolytic and incentive spirometry. Steroids. clinically improving Sputum growing Klebsiella Pneumonia will continue Zosyn and removed Vancomycin. 2. Left lower lobe lung nodule rule out malignancy. 3. Acute Kidney Injury with chronic kidney disease III Improving. 4. Sepsis continue antibiotics. Zosyn and Vancomycin. Sputum Culture growing Klebsiella Pneumonia. continue present care. 5. CVA by history 6. Hypertension Mild uncontrol started on metoprolol 12.5 mg 7. Atrial Fibrillation today started on Beta blockers and following. 8. Dementia Stable 9. electrolyte derangement Phosphorus 1.7 giving 21 mmol of Potassium phosphate. and her Potassium is 3.3 giving potassium replacement. follow in am tomorrow. DVT prophylaxis with Heparin. Discuss with operations research manager and relatives next Tuesday for discharge Discharge Planning Awaiting final by donation specialist for discharge. Luciano Shine MD Dec 26, 2016 15:32
[2016-12-26] MEDS ORDERED: POTASSIUM PHOSPHATE INJ 21 MMOL in SODIUM CHLORIDE 0.9% INJ 150 ML IV ONE (16:00)
[2016-12-26] MEDS ORDERED: POTASSIUM CHLOR 20 MEQ PREMIX 100 ML IV SCH (16:00)
[2016-12-26] MEDS ORDERED: METOPROLOL TARTRATE 25 MG TAB PO SCH ×2 (21:00)
[2016-12-26] MEDS: PRAVASTATIN SOD 40 MG TAB PO SCH (21:48)
[2016-12-26] MEDS ORDERED: POTASSIUM CHLOR 20 MEQ PREMIX 100 ML ONE (22:57)
[2016-12-27] VITALS (14 sets, daily range): BP systolic 174–193; BP diastolic 74–86; PULSE 38–92; RESP 22–28; TEMP 97.4–99.2; O2SAT 89–96
[2016-12-27] MEDS ORDERED: cloNIDine HCL 0.1 MG TAB PO ONE (01:15)
[2016-12-27] MEDS: PIPERACIL-TAZO 3.375 GM PREMIX 50 ML IV SCH ×4 (04:18→21:55)
[2016-12-27] MEDS: HYDROCORTISONE SOD SUCCINATE 100 MG VIAL IV PUSH SCH ×2 (05:56→13:45)
[2016-12-27] MEDS: metroNIDAZOLE 500 MG INJ 100 ML IV SCH ×3 (05:56→20:01)
[2016-12-27] MEDS: HEPARIN SODIUM - SQ 10,000 UNITS/ML VIAL SQ SCH ×3 (05:56→21:55)
[2016-12-27] MEDS: NYSTATIN 100,000 U/GM PWD 15 GM BTL TOPICAL SCH ×3 (05:57→21:56)
[2016-12-27 06:41] LABS: BICARBONATE 23.6 MEQ/L (21.0-32.0); MAGNESIUM 1.4 MG/DL (1.5-2.5)
[2016-12-27 07:08] LABS: POTASSIUM 2.3 MEQ/L (3.5-5.1)
[2016-12-27] MEDS: LACTOBACILLUS ACIDOPHILUS 1 GM PACKET PO SCH ×4 (07:38→20:02)
[2016-12-27] MEDS ORDERED: POTASSIUM PHOSPHATE INJ 15 MMOL in SODIUM CHLORIDE 0.9% INJ 150 ML IV ONE (07:45)
--- NOTE | 2016-12-27 07:47 | HHI.PR ---
Subjective Remarks This is a 86 female admitted due to Shortness of breath for five days, she has Hypertension, Depression Anxiety disorder Chronic kidney disease, CVA, recurrent C Diff x 3. CAD status post PCI and stent placement, status post Hip fracture with multiple hospitalizations, complicated with C diff, aspiration Pneumonia, came with Cough, Shortness of breath Altered mental status. Patient stable discussed with nurse Miss Islas the patient is receiving Potassium , Magnesium and Phosphorus for Electrolyte replacement, continue with Rectal tube for Diarrhea, Miss Medina from Palliative care is in the room, Sputum growing Klebsiella Pneumonia on Zosyn seen by Pulmonary and digital strategy specialist Doctor Jennie He asked for new CXR showing that continue with Right lung Opacity, pleural effusion and removed steroids, continue Metoprolol for Atrial fibrillation, now improving in sinus rhythm to 60 per minute. Objective Vital Signs Date Time Temp Pulse Resp B/P Pulse Ox O2 Delivery O2 Flow Rate FiO2 12/27/16 02:00 81 12/27/16 00:00 92 12/27/16 00:00 98.7 92 24 193/81 89 12/26/16 22:00 95 12/26/16 20:21 94 Nasal Cannula 3.00 12/26/16 20:00 91 12/26/16 20:00 98.5 91 32 176/82 93 12/26/16 20:00 93 Nasal Cannula 3.00 12/26/16 16:00 98.4 93 22 180/82 12/26/16 12:00 98.2 92 24 172/77 12/26/16 10:00 92 12/26/16 08:13 92 Nasal Cannula 3.00 12/26/16 08:00 89 12/26/16 08:00 98.0 89 20 157/72 12/26/16 08:00 Nasal Cannula 3.00 I/O 12/26/16 12/26/16 12/26/16 12/27/16 12/27/16 12/27/16 07:00 15:00 23:00 07:00 15:00 23:00 Intake Total 722 ml 973 ml 531 ml Balance 722 ml 973 ml 531 ml Intake Oral 30 ml 120 ml 60 ml IV Total 692 ml 853 ml 471 ml # Voids 1 3 2 # Bowel Movements 0 2 1 Result Diagram: 12/24/16 0521 12/27/16 0600 Imaging Last Impressions Chest X-Ray 12/24/16 0600 Signed Impressions: Service Date/Time: Saturday, December 24, 2016 05:36 - CONCLUSION: Developing bilateral basilar infiltrates. Bo Figueroa MD Renal Ultrasound 12/22/16 0000 Signed Impressions: Service Date/Time: Thursday, December 22, 2016 18:16 - CONCLUSION: No evidence of hydronephrosis. Bilateral renal cysts. Yuri Garsia MD Chest CT 12/21/16 0000 Signed Impressions: Service Date/Time: Wednesday, December 21, 2016 18:27 - CONCLUSION: 14 mm spiculated nodule left lower lobe characteristic of malignancy until proven otherwise. Bilateral lower lobe consolidating airspace disease characteristic of pneumonia. Coronary artery stent. Yuri Garsia MD Procedures No procedures. Other Results Laboratory Tests Test 12/24/16 12/26/16 12/27/16 05:21 09:00 06:00 White Blood Count 12.9 TH/MM3 Red Blood Count 3.59 MIL/MM3 Hemoglobin 10.2 GM/DL Hematocrit 31.3 % Mean Corpuscular Volume 87.3 FL Mean Corpuscular Hemoglobin 28.5 PG Mean Corpuscular Hemoglobin 32.7 % Concent Red Cell Distribution Width 14.5 % Platelet Count 237 TH/MM3 Mean Platelet Volume 8.3 FL Neutrophils (%) (Auto) 94.5 % Lymphocytes (%) (Auto) 3.3 % Monocytes (%) (Auto) 1.9 % Eosinophils (%) (Auto) 0.0 % Basophils (%) (Auto) 0.3 % Neutrophils # (Auto) 12.2 TH/MM3 Lymphocytes # (Auto) 0.4 TH/MM3 Monocytes # (Auto) 0.2 TH/MM3 Eosinophils # (Auto) 0.0 TH/MM3 Basophils # (Auto) 0.0 TH/MM3 CBC Comment DIFF FINAL Differential Comment Protein Corrected Calcium 9.7 MG/DL Total Protein 3.4 GM/DL Random Vancomycin Level 15.8 COMMENT Sodium Level 148 MEQ/L Potassium Level 2.3 MEQ/L Chloride Level 114 MEQ/L Carbon Dioxide Level 23.6 MEQ/L Anion Gap 10 MEQ/L Blood Urea Nitrogen 14 MG/DL Creatinine 0.97 MG/DL Estimat Glomerular Filtration 54 ML/MIN Rate Random Glucose 139 MG/DL Calcium Level 7.7 MG/DL Phosphorus Level 2.0 MG/DL Magnesium Level 1.4 MG/DL Objective Remarks GENERAL: patient stable, Moderate Disorientation, no Distress. SKIN: Scattered ecchymosis bilateral upper extremities HEAD: Atraumatic. Normocephalic. No temporal or scalp tenderness. EYES: Extraocular motions intact. No scleral icterus. No injection or drainage. CARDIOVASCULAR: Regular rate and rhythm on evaluation, no murmurs. RESPIRATORY: Extrabronchial breath sounds diffusely rhonchus GASTROINTESTINAL: Abdomen soft, non-tender, nondistended. MUSCULOSKELETAL: Trace bilateral extremity edema. No calf tenderness. Negative Homans sign bilaterally. NEUROLOGICAL: Alert in person but not in place or time. No focal deficits. Medications and IVs Current Medications Medications (Trade) Dose Ordered Sig/Bucky Route Start Time Stop Time Status Last Admin (NS Flush) 2 ml UNSCH PRN FLUSH 12/21/16 17:45 (NS Flush) 2 ml BID FLUSH 12/21/16 21:00 12/26/16 21:48 (Tylenol) 650 mg Q4H PRN PO 12/21/16 17:45 (Colace) 100 mg Q12H PO 12/21/16 21:00 Hold (Heparin Inj) 5,000 units Q8H SQ 12/21/16 22:00 12/27/16 05:56 (Tylenol) 650 mg Q6H PRN PO 12/21/16 17:45 12/25/16 21:45 (Narcan Inj) 0.4 mg UNSCH PRN IV 12/21/16 17:45 (Aspirin) 325 mg DAILY PO 12/22/16 09:00 Hold (PROzac) 20 mg BID PO 12/21/16 21:00 Hold (Folate) 1 mg DAILY PO 12/22/16 09:00 12/26/16 08:07 (Pamelor) 20 mg HS PO 12/21/16 21:00 Hold (Pravachol) 40 mg HS PO 12/21/16 21:00 12/26/16 21:48 Patient Own Medication PT OWN MED: (Formoterol ... BID NEB 12/21/16 21:00 Hold Patient Own Medication PT OWN MED: (Lamotrig... DAILY@00 PO 12/22/16 00:00 12/25/16 00:22 Miscellaneous Information Patient in critical care unit? Ass... Q361D XX 12/21/16 22:45 Lactobacillus Acidophilus 1 gm 1 gm QID PO 12/22/16 09:00 12/26/16 21:00 (Levophed-Dextrose Drip) 250 ml @ 0 mls/hr TITRATE IV 12/22/16 00:15 (Brethine Inj) 1 mg UNSCH PRN SQ 12/22/16 00:15 Nystatin 1 applic 1 applic Q8HR TOPICAL 12/22/16 06:00 12/27/16 05:57 Piperacillin Sod/ Tazobactam Sod 50 ml @ 100 mls/hr Q6H IV 12/22/16 10:00 12/27/16 04:18 Pharmacy Profile Note 0 ml @ 0 mls/hr UNSCH OTHER 12/22/16 12:00 Metronidazole 100 ml @ 100 mls/hr Q8H IV 12/22/16 13:00 12/27/16 05:56 Dextrose/Sodium Chloride 1,000 ml @ 50 mls/hr Q20H IV 12/22/16 13:15 12/26/16 04:29 (Keppra Inj/NS Inj) 105 ml @ 420 mls/hr Q12HR IV 12/22/16 21:00 12/26/16 21:48 (SoluCORTEF INJ) 100 mg Q8HR IV PUSH 12/23/16 22:00 12/27/16 05:56 (Mucinex Er) 600 mg BID PO 12/25/16 09:00 12/26/16 21:48 (Protonix) 40 mg DAILY PO 12/27/16 09:00 (Lopressor) 12.5 mg Q12HR PO 12/26/16 21:00 12/26/16 21:48 A/P Assessment and Plan 1. Pneumonia Bibasilar with Hypoxemia, computer specialist following, Probable Aspiration pneumonia continue antibiotics. Bronchodilator, Mucolytic and incentive spirometry. Steroids. clinically improving Sputum growing Klebsiella Pneumonia will continue Zosyn stable Pulmonary and digital strategy specialist Doctor Jennie following. 2. Left lower lobe lung nodule rule out malignancy. will need PET scan as outpatient. 3. Acute Kidney Injury with chronic kidney disease III Improving. 4. Sepsis continue antibiotics. Zosyn. Sputum Culture growing Klebsiella Pneumonia. continue present care. 5. CVA by history 6. Hypertension Uncontrolled added Clonidine and increased Metoprolol to 25 mg BID. 7. Atrial Fibrillation now in sinus rhythm with Beta blockers. 8. Dementia Stable 9. electrolyte derangement continue replacement. C Diff negative, continue with Diarrhea, start on Questran. DVT prophylaxis with Heparin. Discharge Planning Not yet cleared by computer specialist for discharge Luciano Shine MD Dec 27, 2016 07:47
[2016-12-27] MEDS: METOPROLOL TARTRATE 25 MG TAB PO SCH ×2 (08:06→20:01)
[2016-12-27] MEDS: cloNIDine HCL 0.1 MG TAB PO PRN ×2 (08:06→12:59)
[2016-12-27] MEDS: guaiFENesin E.R. 600 MG TAB PO SCH ×4 (08:06→20:01)
[2016-12-27] MEDS: PANTOPRAZOLE SOD 40 MG DELAYED RELEASE TAB PO SCH (08:07)
[2016-12-27] MEDS: SODIUM CHLORIDE 0.9% FLUSH 5 ML FLUSH FLUSH SCH ×2 (08:07→20:01)
[2016-12-27] MEDS: FOLIC ACID 1 MG TAB PO SCH (08:07)
[2016-12-27] MEDS: MAGNESIUM OXIDE 400 MG TAB PO SCH ×2 (08:07→20:02)
[2016-12-27] MEDS: levETIRAcetam INJ 500 MG in SODIUM CHLORIDE 0.9% INJ 100 ML IV SCH ×2 (08:08→20:01)
[2016-12-27] MEDS: MAGNESIUM SULFATE 1 GM PREMIX 100 ML IV SCH ×2 (08:16→09:48)
[2016-12-27] MEDS: RESP: BUDESONIDE 0.5 MG/2 ML NEB NEB SCH ×2 (08:23→21:00)
[2016-12-27] MEDS: RESP: ALBUTEROL 2.5 MG/IPRATROPIUM 0.5 MG NEB (PRN) NEB (08:24)
[2016-12-27] MEDS: POTASSIUM CHLOR 20 MEQ PREMIX 100 ML IV SCH ×3 (08:29→23:20)
--- NOTE | 2016-12-27 08:56 | RADRPT ---
EXAM DATE/TIME: 12/27/2016 07:54 [facility] COMPARISON: CHEST SINGLE AP, December 24, 2016, 5:36. INDICATIONS : Shortness of breath. Pneumonia. MEDICAL HISTORY : Cardiovascular disease. Hypertension. Deep venous thrombosis. SURGICAL HISTORY : Appendectomy. Cholecystectomy. Hysterectomy ENCOUNTER: Subsequent ACUITY: 1 week PAIN SCORE: Non-responsive. LOCATION: Bilateral chest FINDINGS: Portable AP view of the chest demonstrates a normal-sized cardiac silhouette. Right basilar pleural-p arenchymal opacity has mildly increased. There is also increased retrocardiac opacity. No pneumothora x is visualized. New consolidation is also now present at the right lung apex. Bones and soft tissues demonstrate no acute finding. CONCLUSION: 1. Increased airspace consolidation throughout the right lung with persistent right basilar pleural-p arenchymal opacity likely representing pleural effusion with associated volume loss and/or consolidat ion. 2. Increased left basilar opacity likely representing airspace consolidation, small pleural effusion, and atelectasis. Bo Cordova MD on December 27, 2016 at 8:53 Board Certified Radiologist. This report was verified electronically.
--- NOTE | 2016-12-27 11:48 | HHI.HCPN ---
Reason for visit a. To assist with evaluation and management of symptoms including: Debility , dysphagia and shortness of breath. b. To assist medical decision maker(s) with: better understanding of current medical conditions; weighing benefits/burdens of medical treatment options; making medical treatment decisions. . Subjective/Interval History Patient remains in ICU. Under the care of hospitalist group since 12/24/16. Tolerating O2 via nasal cannula at 4 L. Sputum culture 12/22/16 growing Klebsiella pneumoniae, vancomycin was discontinued. Patient remains on Zosyn and Flagyl. Remains on febrile, hypertensive with SBP in the 170s-180s. During my visit patient had an episode of asymptomatic bradycardia with heart rate in the 30s. During this episode, patient remained alert and following some commands. Dr. Shine called to the bedside. Chest x-ray today showing increased airspace consolidation throughout the right lung with persistent right basilar opacity likely representing pleural effusion with associated volume loss and/or consolidation. Also showing increased left basilar opacity likely representing consolidation, small pleural effusion and atelectasis. Labs today including sodium 148, potassium 2.3, BUN/creatinine 14/0.97. Patient being followed by pulmonology -Dr. Cowan. Plan for PET/CT as outpatient for evaluation of lung nodule. . Family/friend interactions No family at bedside. Telephone call to patient's son Anibal and tania message on voicemail. 16:05. Son Mohan at bedside. Medical update provided. Discussed bradycardia episode today. Patient more alert and oriented today, participating in conversation. Confused, not always able to communicate needs secondary to confusion. Pleasant and cooperative. Denies any pain or discomfort. Reviewed patient's clinical course and current treatment plan. Goals of care remains unchanged, family electing to discharge pt to rehabilitation for physical strengthening. If patient's clinical condition worsened or does not tolerate rehabilitation, family electing to transition patient to comfort directed care with hospice. Patient scheduled to relocate [place] within the next 6-8 weeks. . Advance Directives Living Will: Completed, but not made available Health Care Surrogate: Completed, but not made available Durable Power of Order Builder Loader: Completed, but not made available Advance Directive Specifics Date completed: Pending documentation from family. . Health Care Surrogate(s): As per family, designated healthcare surrogate this patient's son Anibal Bojra. . Documented care wishes: Pending copy of living will. . Significant change in goals: No code. Allow time for clinical improvement. . Objective Vital Signs Date Time Temp Pulse Resp B/P Pulse Ox O2 Delivery O2 Flow Rate FiO2 12/27/16 10:53 38 12/27/16 08:27 93 Nasal Cannula 4.00 12/27/16 08:00 99.2 77 24 190/86 93 12/27/16 08:00 77 12/27/16 07:00 95 Nasal Cannula 4.00 12/27/16 06:00 76 12/27/16 04:00 97.4 82 22 189/79 95 12/27/16 04:00 82 12/27/16 02:00 81 12/27/16 00:00 92 12/27/16 00:00 98.7 92 24 193/81 89 12/26/16 22:00 95 12/26/16 20:21 94 Nasal Cannula 3.00 12/26/16 20:00 91 12/26/16 20:00 98.5 91 32 176/82 93 12/26/16 20:00 93 Nasal Cannula 3.00 12/26/16 16:00 98.4 93 22 180/82 12/26/16 12:00 98.2 92 24 172/77 Intake & Output 12/27/16 12/27/16 07:00 19:00 Intake Total 1331 ml Balance 1331 ml Intake Oral 180 ml IV Total 1151 ml # Voids 5 # Bowel Movements 4 Physical Exam CONSTITUTIONAL/GENERAL: This is a frail, thin elderly female in no acute distress. Awake, alert. Following some commands. TUBES/LINES/DRAINS: PIV's, nasal cannula, Engle catheter. SKIN: No jaundice, rashes, or lesions. Ecchymoses on upper extremities. No wounds seen anteriorly. Skin temperature appropriate. Not diaphoretic. HEAD: Atraumatic. Normocephalic. EYES: Pupils equal and round and reactive. No scleral icterus. No injection or drainage. ENT: Hearing appears normal. Nose without bleeding or purulent drainage. Mouth close. NECK: Trachea midline. Supple. CARDIOVASCULAR: Irregular rate and rhythm. Edema to lower extremities. RESPIRATORY/CHEST: Symmetric, unlabored respirations. Fine coarse breath sounds. On oxygen via nasal cannula. GASTROINTESTINAL: Abdomen soft, round. Nontender. No guarding. Bowel sounds present. GENITOURINARY: Without palpable bladder distension. Engle catheter in place. MUSCULOSKELETAL: Extremities without clubbing, cyanosis. Bilateral hands contracture, moderate tremors NEUROLOGICAL: Awake, alert to self. Disoriented as to place and situation. Verbal but not always communicate needs secondary to confusion. Following some commands. PSYCHIATRIC: Restless, and yelling during my visit. Able to calm down with ongoing reassurance/support. . Diagnostic Tests Laboratory Laboratory Tests Test 12/24/16 12/25/16 12/25/16 12/26/16 19:03 05:20 09:07 09:00 Potassium Level 3.0 MEQ/L 3.2 MEQ/L 3.3 MEQ/L (3.5-5.1) (3.5-5.1) (3.5-5.1) Random Vancomycin Level 17.3 COMMENT 15.8 COMMENT Sodium Level 149 MEQ/L 151 MEQ/L (136-145) (136-145) Chloride Level 115 MEQ/L 116 MEQ/L (98-107) (98-107) Carbon Dioxide Level 23.2 MEQ/L 22.1 MEQ/L (21.0-32.0) (21.0-32.0) Anion Gap 11 MEQ/L (5-15) 13 MEQ/L (5-15) Blood Urea Nitrogen 25 MG/DL (7-18) 20 MG/DL (7-18) Creatinine 1.59 MG/DL 1.20 MG/DL (0.50-1.00) (0.50-1.00) Estimat Glomerular Filtration 31 ML/MIN (>89) 43 ML/MIN (>89) Rate Random Glucose 135 MG/DL 93 MG/DL (74-106) (74-106) Calcium Level 8.4 MG/DL 7.4 MG/DL (8.5-10.1) (8.5-10.1) Phosphorus Level 1.4 MG/DL 1.7 MG/DL (2.5-4.9) (2.5-4.9) Magnesium Level 2.1 MG/DL (1.5-2.5) Protein Corrected Calcium 9.7 MG/DL (8.5-10.1) Total Protein 3.4 GM/DL (6.4-8.2) Test 12/27/16 06:00 Sodium Level 148 MEQ/L (136-145) Potassium Level 2.3 MEQ/L (3.5-5.1) Chloride Level 114 MEQ/L (98-107) Carbon Dioxide Level 23.6 MEQ/L (21.0-32.0) Anion Gap 10 MEQ/L (5-15) Blood Urea Nitrogen 14 MG/DL (7-18) Creatinine 0.97 MG/DL (0.50-1.00) Estimat Glomerular Filtration 54 ML/MIN (>89) Rate Random Glucose 139 MG/DL (74-106) Calcium Level 7.7 MG/DL (8.5-10.1) Phosphorus Level 2.0 MG/DL (2.5-4.9) Magnesium Level 1.4 MG/DL (1.5-2.5) Result Diagram: 12/24/16 0521 12/27/16 0600 Imaging Last 72 hours Impressions Chest X-Ray 12/27/16 0800 Signed Impressions: Service Date/Time: Tuesday, December 27, 2016 07:54 - CONCLUSION: 1. Increased airspace consolidation throughout the right lung with persistent right basilar pleural-parenchymal opacity likely representing pleural effusion with associated volume loss and/or consolidation. 2. Increased left basilar opacity likely representing airspace consolidation, small pleural effusion, and atelectasis. Bo Cordova MD Assessment and Plan Disease Oriented Problem List: (1) Respiratory failure, acute (2) Hypotension (3) Pneumonia (4) CKD (chronic kidney disease) stage 3, GFR 30-59 ml/min (5) Failure to thrive in adult (6) Dementia Symptom Scale: (1) Shortness of breath 0-10 Scale: Unable to quantify Comment: secondary to pna and likely malignancy. Improving. Tolerating oxygen via nasal cannula 4 L. (2) Dysphagia 0-10 Scale: Unable to quantify Comment: Secondary to advanced dementia. Pureed diet and thickened liquids. (3) Debility 0-10 Scale: Unable to quantify Comment: Progressive since February 2016. Depending on all ADLs. Pertinent Non-Medical Issues Psychosocial: , has 5 children. Spiritual: Christian. Legal: Living will completed. Pending copy. Ethical issues impacting care: No ethical issues have been identified. . Important Contacts Donell Borja [phone]. [facility] -Son Anibal Borja [phone]. . Prognosis Mrs. Borja is an 86-year-old female with a past medical history of right femur fracture secondary to mechanical fall s/p intramedullary nail fixation on February complicated by migration of screw and infection for which she underwent removal of hardware and intramedullary annalise fixation in April 27, 2016. All other medical history includes dementia, CAD status post stents, CHF hypertension, chronic kidney disease stage III, anxiety/depression, dysphagia with PEG tube placement in May 2016. Patient has been between acute hospitalizations, acute rehabilitation and [facility] facility since February 2016. Acute decline and cognitive and functional status. Now depending on all ADLs. CT of chest on this admission reveals lung nodule highly suggestive of malignancy. Patient's overall prognosis is poor given her age, progressive decline in functional and cognitive status, chronic comorbidities, acute events, frequent hospitalizations and high likelihood of lung malignancy. Patient at very high risk for further decline, complications and . . Code Status: No Code Plan * CODE STATUS: No code. DNR/DNI. * Community DNR completed. * MEDICAL DECISION-MAKING: Patient not decisional secondary to clinical condition, dementia. Family reports that son Anibal Borja is designated healthcare surrogate. * GOALS OF CARE: Continue current medical management short of no code and allow time for clinical improvement. Patient's clinical condition appears be improving at this time. Likely disease trajectory discussed with family. Family optimistic but realistic. Family amenable to transition to comfort- directed care with hospice should her clinical condition worsen or there is additional functional decline. Patient scheduled to relocate [place] within the next 6-8 weeks. * SYMPTOMS: == Shortness of breath, multifactorial -secondary to pneumonia and probable lung malignancy. Appears to be improving, tolerating oxygen via nasal cannula 4 L. Pulmonology following. == Debility, progressive since February 2016. Likely to worsen. == Dysphagia, secondary to advanced dementia and CVA, history of PEG tube. On pured diet and honey thickened liquids. Patient presents with failure to thrive, albumin 2.6. * Case has been discussed with Dr. Shine and bedside RN. * Palliative care contact information has been provided to family. * Palliative care will continue to follow-up with this hospitalizations for clarifications of goals of care as clinical course evolves. . Time Spent Total Floor Time (mins): 32 (Total time to include review medical records, physical exam, bedside conversation with son and case discussion with bedside RN.) >50% Counseling/Coord of Care: Yes Attestation To help prompt me to consider important information that might be impacting today's encounter and assessment, information from prior notes written by myself or my colleagues may have been "brought forward" into today's note. My signature on this note, however, is an attestation that I personally performed the exam, history, and/or decision-making noted today, and, unless otherwise indicated, the interactions with patient, family, and staff as well as the review of records all occurred today. I also attest that the listed assessment and stated plan reflect my best clinical judgment today based on the combination of historical information, prior notes, and today's exam/ interactions. When time spent is documented, it refers only to time spent today by the signer, or if indicated, combined time spent today by collaborating physician/nurse practitioner. Carol Gonzalez Dec 27, 2016 11:47
[2016-12-27] MEDS: DEXT 5%-NACL 0.9% 1000 ML INJ 1,000 ML IV SCH ×2 (11:56→20:02)
[2016-12-27 12:58] LABS: C. DIFF EPI 027 PRESUMPTIVE NEGATIVE (NEGATIVE); C. DIFF TOXIN PCR NEGATIVE (NEGATIVE)
--- NOTE | 2016-12-27 18:24 | HHI.PR ---
Subjective Remarks She seems more agitated . No fever. Output is better. On IV fluids and Antibiotics for aspiration and Klebsiella in sputum. Objective Vital Signs Date Time Temp Pulse Resp B/P Pulse Ox O2 Delivery O2 Flow Rate FiO2 12/27/16 18:00 65 12/27/16 16:00 66 12/27/16 16:00 98.2 66 24 190/84 96 12/27/16 14:00 64 12/27/16 12:00 98.0 62 28 183/74 96 12/27/16 12:00 62 12/27/16 10:53 38 12/27/16 08:27 93 Nasal Cannula 4.00 12/27/16 08:00 99.2 77 24 190/86 93 12/27/16 08:00 77 12/27/16 07:00 95 Nasal Cannula 4.00 12/27/16 06:00 76 12/27/16 04:00 97.4 82 22 189/79 95 12/27/16 04:00 82 12/27/16 02:00 81 12/27/16 00:00 92 12/27/16 00:00 98.7 92 24 193/81 89 12/26/16 22:00 95 12/26/16 20:21 94 Nasal Cannula 3.00 12/26/16 20:00 91 12/26/16 20:00 98.5 91 32 176/82 93 12/26/16 20:00 93 Nasal Cannula 3.00 I/O 12/26/16 12/26/16 12/26/16 12/27/16 12/27/16 12/27/16 07:00 15:00 23:00 07:00 15:00 23:00 Intake Total 722 ml 973 ml 531 ml 800 ml 1256 ml Output Total 200 ml Balance 722 ml 973 ml 531 ml 800 ml 1056 ml Intake Oral 30 ml 120 ml 60 ml 120 ml 120 ml IV Total 692 ml 853 ml 471 ml 680 ml 1136 ml Output Urine Total 200 ml # Voids 1 3 2 3 1 # Bowel Movements 0 2 1 3 1 Result Diagram: 12/24/16 0521 12/27/16 0600 Procedures No procedures. Objective Remarks GENERAL: This elderly, averagely built, white female is agitated HEENT: Head normocephalic. Pupils reactive. Tongue is moist.. CHEST: Reveals coarse wheezes in the upper lung beasley with basilar crackles. HEART: The heart sounds are irregular, S1 and S2 with no murmur. ABDOMEN: Abdomen is soft, protuberant. No mass. No organomegaly or tenderness. EXTREMITIES: Revealed no edema . There are some contractures of her hands and the patient does not move her arms well and seems to have some weakness of her legs as well. Reflexes cannot be elicited. RECTAL: Exam is deferred. SKIN: Skin was warm. Assessment and Plan Assessment and Plan IMPRESSION 1. Bibasilar pneumonia with hypoxemia. 2. Probable aspiration pneumonia. 3. Left lower lobe lung nodule, rule out malignancy. 4. Acute kidney injury with chronic kidney disease. 5. Sepsis. 6. History of CVA. 7. History of hypertension and coronary artery disease. 8. Respiratory Failure Plan: 1. Continue antibiotics and switch to PO meds 2. Wean O2 to 3 L. 3. CBC ,BMP in am. 4. Continue Nebs qid , Duoneb. 5. Up in chair . 6. Haldol for agitation 7. CBC BMP.Transfer to floor. 8. D/C Steroids in IV 9. PET CT as OP for lung nodule Allison Schneider MD Dec 27, 2016 18:24
[2016-12-27] MEDS: predniSONE 10 MG TAB PO SCH (20:01)
[2016-12-27] MEDS: PRAVASTATIN SOD 40 MG TAB PO SCH (20:01)
[2016-12-27 22:09] LABS: POTASSIUM 2.9 MEQ/L (3.5-5.1)
[2016-12-27] MEDS ORDERED: MAGNESIUM SULFATE INJ 4 GM in SODIUM CHLORIDE 0.9% INJ 92 ML IV PRN (23:00)
[2016-12-27] MEDS ORDERED: SODIUM PHOSPHATE INJ 30 MMOL in SODIUM CHLOR 0.9% 250 ML INJ 240 ML IV PRN (23:00)
[2016-12-27] MEDS ORDERED: POTASSIUM CL 40 MEQ/30 ML LIQ UDC PO/TUBE PRN ×2 (23:00)
[2016-12-27] MEDS ORDERED: POTASSIUM PHOSPHATE INJ 30 MMOL in SODIUM CHLOR 0.9% 250 ML INJ 250 ML IV PRN (23:00)
[2016-12-27] MEDS ORDERED: POTASSIUM CHLOR 40 MEQ PREMIX 100 ML IV PRN ×2 (23:00)
[2016-12-27] MEDS ORDERED: POTASSIUM PHOSPHATE MONOBASIC 500 MG TAB PO/TUBE PRN (23:00)
[2016-12-27] MEDS ORDERED: MAGNESIUM SULFATE INJ 2 GM in SODIUM CHLORIDE 0.9% INJ 96 ML IV PRN (23:00)
[2016-12-27] MEDS ORDERED: MAGNESIUM OXIDE 400 MG TAB PO PRN (23:00)
[2016-12-27] MEDS ORDERED: POTASSIUM CHLOR 20 MEQ PREMIX 100 ML IV PRN ×2 (23:00)
[2016-12-27] MEDS ORDERED: POTASSIUM CHLORIDE 20 MEQ CONTROLLED RELEASE TAB PO ONE (23:00)
[2016-12-27] MEDS: LAMOTRIGINE 300 MG PO SCH ×2 (23:21)
[2016-12-27] MEDS: POTASSIUM PHOSPHATE MONOBASIC 500 MG TAB PO PRN (23:21)
[2016-12-28] VITALS (15 sets, daily range): BP systolic 141–172; BP diastolic 74–84; PULSE 63–95; RESP 24–28; TEMP 98–99.2; O2SAT 93–98
[2016-12-28] MEDS: cloNIDine HCL 0.1 MG TAB PO PRN (00:44)
[2016-12-28] MEDS: POTASSIUM CHLOR 20 MEQ PREMIX 100 ML IV SCH (01:21)
[2016-12-28] MEDS: POTASSIUM PHOSPHATE MONOBASIC 500 MG TAB PO PRN (02:34)
[2016-12-28] MEDS: metroNIDAZOLE 500 MG INJ 100 ML IV SCH (04:49)
[2016-12-28] MEDS: PIPERACIL-TAZO 3.375 GM PREMIX 50 ML IV SCH (04:49)
[2016-12-28] MEDS: NYSTATIN 100,000 U/GM PWD 15 GM BTL TOPICAL SCH ×3 (04:50→21:00)
[2016-12-28] MEDS: HEPARIN SODIUM - SQ 10,000 UNITS/ML VIAL SQ SCH ×3 (04:50→20:57)
[2016-12-28 06:26] LABS: BICARBONATE 22.7 MEQ/L (21.0-32.0); MAGNESIUM 1.9 MG/DL (1.5-2.5)
[2016-12-28] MEDS: RESP: IPRATROPIUM 0.5 MG/2.5 ML NEB NEB PRN (07:27)
[2016-12-28] MEDS: RESP: BUDESONIDE 0.5 MG/2 ML NEB NEB SCH ×2 (07:27→20:15)
[2016-12-28] MEDS ORDERED: POTASSIUM CHLOR 20 MEQ PREMIX 100 ML IV SCH (08:45)
[2016-12-28] MEDS: CHOLESTYRAMINE 4 GM PACKET PO SCH ×3 (08:45→20:58)
--- NOTE | 2016-12-28 08:47 | HHI.PR ---
Subjective Remarks This is a 86 female admitted due to Shortness of breath for five days, she has Hypertension, Depression Anxiety disorder Chronic kidney disease, CVA, recurrent C Diff x 3. CAD status post PCI and stent placement, status post Hip fracture with multiple hospitalizations, complicated with C diff, aspiration Pneumonia, came with Cough, Shortness of breath Altered mental status. Seen in Intensive Care Unit continue with Electrolyte derangement, given replacement but not improving, I prefer to start the patient on Management with Flagyl 500 mg every eight hours, her C Diff is negative on 12/27/16, she continue on Zosyn for Pneumonia, continue Electrolyte replacement, following closely with laboratory, now in sinus rhythm, continue with Rectal tube, discussed with her Son Mr. Donell Borja to the phone number [phone] he wants to continue with present care. Objective Vital Signs Date Time Temp Pulse Resp B/P Pulse Ox O2 Delivery O2 Flow Rate FiO2 12/28/16 07:27 98 Nasal Cannula 4.00 12/28/16 06:00 69 12/28/16 04:00 66 12/28/16 04:00 98.4 66 27 169/80 98 12/28/16 02:00 67 12/28/16 00:00 98.0 66 28 172/75 93 12/28/16 00:00 66 12/27/16 22:00 69 12/27/16 21:02 95 Nasal Cannula 4.00 12/27/16 20:00 70 12/27/16 20:00 97.5 70 27 174/74 96 12/27/16 19:00 93 Nasal Cannula 4.00 12/27/16 18:00 65 12/27/16 16:00 66 12/27/16 16:00 98.2 66 24 190/84 96 12/27/16 14:00 64 12/27/16 12:00 98.0 62 28 183/74 96 12/27/16 12:00 62 12/27/16 10:53 38 I/O 12/27/16 12/27/16 12/27/16 12/28/16 12/28/16 12/28/16 07:00 15:00 23:00 07:00 15:00 23:00 Intake Total 800 ml 1256 ml 1013 ml 824 ml Output Total 200 ml 100 ml 500 ml Balance 800 ml 1056 ml 913 ml 324 ml Intake Oral 120 ml 120 ml 50 ml 100 ml IV Total 680 ml 1136 ml 963 ml 724 ml Output Urine Total 200 ml Stool Total 100 ml 500 ml # Voids 3 1 1 2 # Bowel Movements 3 1 Result Diagram: 12/24/16 0521 12/28/16 0544 Imaging Last Impressions Chest X-Ray 12/27/16 0800 Signed Impressions: Service Date/Time: Tuesday, December 27, 2016 07:54 - CONCLUSION: 1. Increased airspace consolidation throughout the right lung with persistent right basilar pleural-parenchymal opacity likely representing pleural effusion with associated volume loss and/or consolidation. 2. Increased left basilar opacity likely representing airspace consolidation, small pleural effusion, and atelectasis. Bo Cordova MD Renal Ultrasound 12/22/16 0000 Signed Impressions: Service Date/Time: Thursday, December 22, 2016 18:16 - CONCLUSION: No evidence of hydronephrosis. Bilateral renal cysts. Yuri Garsia MD Chest CT 12/21/16 0000 Signed Impressions: Service Date/Time: Wednesday, December 21, 2016 18:27 - CONCLUSION: 14 mm spiculated nodule left lower lobe characteristic of malignancy until proven otherwise. Bilateral lower lobe consolidating airspace disease characteristic of pneumonia. Coronary artery stent. Yuri Garsia MD Procedures No procedures. Other Results Laboratory Tests Test 12/24/16 12/26/16 12/27/16 12/28/16 05:21 09:00 09:45 05:44 White Blood Count 12.9 TH/MM3 Red Blood Count 3.59 MIL/MM3 Hemoglobin 10.2 GM/DL Hematocrit 31.3 % Mean Corpuscular Volume 87.3 FL Mean Corpuscular Hemoglobin 28.5 PG Mean Corpuscular Hemoglobin 32.7 % Concent Red Cell Distribution Width 14.5 % Platelet Count 237 TH/MM3 Mean Platelet Volume 8.3 FL Neutrophils (%) (Auto) 94.5 % Lymphocytes (%) (Auto) 3.3 % Monocytes (%) (Auto) 1.9 % Eosinophils (%) (Auto) 0.0 % Basophils (%) (Auto) 0.3 % Neutrophils # (Auto) 12.2 TH/MM3 Lymphocytes # (Auto) 0.4 TH/MM3 Monocytes # (Auto) 0.2 TH/MM3 Eosinophils # (Auto) 0.0 TH/MM3 Basophils # (Auto) 0.0 TH/MM3 CBC Comment DIFF FINAL Differential Comment Protein Corrected Calcium 9.7 MG/DL Total Protein 3.4 GM/DL Random Vancomycin Level 15.8 COMMENT Stool C. difficile Toxin (PCR) NEGATIVE Stl C. difficile Toxin PRESUMPTIVE Epiderm 027 NEGATIVE Sodium Level 149 MEQ/L Potassium Level 3.0 MEQ/L Chloride Level 115 MEQ/L Carbon Dioxide Level 22.7 MEQ/L Anion Gap 11 MEQ/L Blood Urea Nitrogen 13 MG/DL Creatinine 1.28 MG/DL Estimat Glomerular Filtration 40 ML/MIN Rate Random Glucose 172 MG/DL Calcium Level 7.5 MG/DL Phosphorus Level 1.3 MG/DL Magnesium Level 1.9 MG/DL Objective Remarks GENERAL: patient stable, Moderate Disorientation, no Distress. SKIN: Scattered ecchymosis bilateral upper extremities HEAD: Atraumatic. Normocephalic. No temporal or scalp tenderness. EYES: Extraocular motions intact. No scleral icterus. No injection or drainage. CARDIOVASCULAR: Regular rate and rhythm on evaluation, no murmurs. RESPIRATORY: Extrabronchial breath sounds diffusely rhonchus GASTROINTESTINAL: Abdomen soft, non-tender, nondistended. MUSCULOSKELETAL: Trace bilateral extremity edema. No calf tenderness. Negative Homans sign bilaterally. NEUROLOGICAL: Alert in person but not in place or time. No focal deficits. Medications and IVs Current Medications Medications (Trade) Dose Ordered Sig/Bucky Route Start Time Stop Time Status Last Admin (NS Flush) 2 ml UNSCH PRN FLUSH 12/21/16 17:45 (NS Flush) 2 ml BID FLUSH 12/21/16 21:00 12/27/16 20:01 (Tylenol) 650 mg Q4H PRN PO 12/21/16 17:45 (Colace) 100 mg Q12H PO 12/21/16 21:00 Hold (Heparin Inj) 5,000 units Q8H SQ 12/21/16 22:00 12/28/16 04:50 (Tylenol) 650 mg Q6H PRN PO 12/21/16 17:45 12/25/16 21:45 (Narcan Inj) 0.4 mg UNSCH PRN IV 12/21/16 17:45 (Aspirin) 325 mg DAILY PO 12/22/16 09:00 Hold (PROzac) 20 mg BID PO 12/21/16 21:00 Hold (Folate) 1 mg DAILY PO 12/22/16 09:00 12/27/16 08:07 (Pamelor) 20 mg HS PO 12/21/16 21:00 Hold (Pravachol) 40 mg HS PO 12/21/16 21:00 12/27/16 20:01 Patient Own Medication PT OWN MED: (Formoterol ... BID NEB 12/21/16 21:00 Hold Patient Own Medication PT OWN MED: (Lamotrig... DAILY@00 PO 12/22/16 00:00 12/27/16 23:21 Miscellaneous Information Patient in critical care unit? Ass... [id number] XX 12/21/16 22:45 Lactobacillus Acidophilus 1 gm 1 gm QID PO 12/22/16 09:00 12/27/16 20:02 (Levophed-Dextrose Drip) 250 ml @ 0 mls/hr TITRATE IV 12/22/16 00:15 (Brethine Inj) 1 mg UNSCH PRN SQ 12/22/16 00:15 Nystatin 1 applic 1 applic Q8HR TOPICAL 12/22/16 06:00 12/28/16 04:50 Piperacillin Sod/ Tazobactam Sod 50 ml @ 100 mls/hr Q6H IV 12/22/16 10:00 12/28/16 04:49 Metronidazole 100 ml @ 100 mls/hr Q8H IV 12/22/16 13:00 12/28/16 04:49 Dextrose/Sodium Chloride 1,000 ml @ 50 mls/hr Q20H IV 12/22/16 13:15 12/27/16 20:02 (Keppra Inj/NS Inj) 105 ml @ 420 mls/hr Q12HR IV 12/22/16 21:00 12/27/16 20:01 (Mucinex Er) 600 mg BID PO 12/25/16 09:00 12/27/16 20:01 (Protonix) 40 mg DAILY PO 12/27/16 09:00 12/27/16 08:07 (Lopressor) 25 mg Q12HR PO 12/27/16 09:00 12/27/16 20:01 (Mag-Ox) 800 mg BID PO 12/27/16 09:00 12/27/16 20:02 (Catapres) 0.1 mg Q6H PRN PO 12/27/16 08:00 12/28/16 00:44 Prednisone 10 mg 10 mg BID PO 12/27/16 21:00 01/01/17 20:59 12/27/16 20:01 Potassium Chloride 100 ml @ 50 mls/hr Q2H PRN IV 12/27/16 23:00 (KCl 20 Meq Premix Inj) 100 ml @ 50 mls/hr Q2H PRN IV 12/27/16 23:00 Potassium Chloride 40 meq 40 meq UNSCH PRN PO/TUBE 12/27/16 23:00 Potassium Chloride 100 ml @ 25 mls/hr UNSCH PRN IV 12/27/16 23:00 Potassium Chloride 100 ml @ 50 mls/hr Q2H PRN IV 12/27/16 23:00 (Magnesium Sulfate Inj/NS Inj) 100 ml @ 50 mls/hr UNSCH PRN IV 12/27/16 23:00 Magnesium Oxide 800 mg 800 mg UNSCH PRN PO 12/27/16 23:00 (Magnesium Sulfate Inj/NS Inj) 100 ml @ 50 mls/hr UNSCH PRN IV 12/27/16 23:00 Potassium Phosphate 2000 mg 2,000 mg Q4H PRN PO 12/27/16 23:00 12/28/16 02:34 (Sodium Phosphate Inj/NS 250 ml Inj) 250 ml @ 42 mls/hr UNSCH PRN IV 12/27/16 23:00 (KCl 40 Meq/30 ml Liq) 40 meq UNSCH PRN PO/TUBE 12/27/16 23:00 Potassium Phosphate 2000 mg 2,000 mg UNSCH PRN PO/TUBE 12/27/16 23:00 (Potassium Phosphate Inj/NS 250 ml Inj) 260 ml @ 42 mls/hr UNSCH PRN IV 12/27/16 23:00 12/28/16 06:52 A/P Assessment and Plan 1. Pneumonia Bibasilar with Hypoxemia, client care specialist following, Probable Aspiration pneumonia continue antibiotics. Bronchodilator, Mucolytic and incentive spirometry. Steroids. clinically improving Sputum growing Klebsiella Pneumonia will continue Zosyn stable Pulmonary and software development specialist Doctor Jennie following. asked for Infectious Disease specialist consult patient with worsening condition has Increased airspace consolidation throughout the right lung with persistent right basilar pleural-parenchymal opacity likely representing pleural effusion with associated volume loss and/or consolidation. 2. Left lower lobe lung nodule rule out malignancy. will need PET scan as outpatient. 3. Acute Kidney Injury with chronic kidney disease III at this time worsening Creatinine. 4. Sepsis continue antibiotics. Zosyn. Sputum Culture growing Klebsiella Pneumonia. continue present care. asked for ID specialist consult 5. CVA by history 6. Hypertension Uncontrolled added Clonidine and increased Metoprolol to 25 mg BID. 7. Atrial Fibrillation now in sinus rhythm with Beta blockers. 8. Dementia Stable 9. electrolyte derangement continue replacement. C Diff negative, continue with Diarrhea, start on Questran. even C Diff is negative I prefer to start management for C Diff. with Flagyl. DVT prophylaxis with Heparin. Discussed with Patient and her Son Mr. Donell Borja phone number [phone] he wants to continue present care. Discharge Planning Not yet cleared by client care specialist for discharge asked for ID specialist consult Luciano Shine MD Dec 28, 2016 08:47
[2016-12-28] MEDS: METOPROLOL TARTRATE 25 MG TAB PO SCH ×2 (08:55→20:57)
[2016-12-28] MEDS: LACTOBACILLUS ACIDOPHILUS 1 GM PACKET PO SCH ×4 (08:55→21:00)
[2016-12-28] MEDS: MAGNESIUM OXIDE 400 MG TAB PO SCH ×2 (08:55→20:57)
[2016-12-28] MEDS: predniSONE 10 MG TAB PO SCH ×2 (08:55→20:59)
[2016-12-28] MEDS: FOLIC ACID 1 MG TAB PO SCH (08:55)
[2016-12-28] MEDS: guaiFENesin E.R. 600 MG TAB PO SCH ×2 (08:56→20:58)
[2016-12-28] MEDS: PANTOPRAZOLE SOD 40 MG DELAYED RELEASE TAB PO SCH (08:56)
[2016-12-28] MEDS ORDERED: MAGNESIUM SULFATE 1 GM PREMIX 100 ML IV ONE (09:00)
[2016-12-28] MEDS ORDERED: metroNIDAZOLE 500 MG INJ 100 ML IV SCH (09:00)
[2016-12-28] MEDS ORDERED: ENALAPRILAT 1.25 MG/ML VIAL IV PUSH PRN (09:00)
[2016-12-28] MEDS: SODIUM CHLORIDE 0.9% FLUSH 5 ML FLUSH FLUSH SCH ×2 (09:00→20:59)
[2016-12-28] MEDS: levETIRAcetam INJ 500 MG in SODIUM CHLORIDE 0.9% INJ 100 ML IV SCH ×2 (09:00→20:56)
--- NOTE | 2016-12-28 09:35 | PD.CONS ---
History of Present Illness Service Infectious disease Consult Requested By Dr. Shine Reason for Consult Evaluate patient for possible C. difficile, has pneumonia Primary Care Physician No Primary Care Physician Diagnoses: History of Present Illness Patient seen and examined. Records reviewed. Patient is an 86-year-old female, admitted to the hospital for evaluation of shortness of breath and low oxygen saturation. There is no other history available. She was found to have elevated creatinine, and her white count was around 12,000. Chest x-ray showed some basilar atelectasis. CT of the chest did show some consolidation compatible with pneumonia. On her first hospital day she developed hypotension, and was transferred to the intensive care unit. Patient has required increased oxygen supplementation, and has now been tapered to nasal O2. Her chest x-ray has been showing increasing infiltrates especially on the right side. She had a sputum culture that had Klebsiella. Blood cultures are negative. Patient also has been having diarrhea, but stool for C. difficile has been negative. Patient has not been febrile. Her white count is still around 12,000. Patient currently is on nasal O2. She complains of some shortness of breath and some pain on her chest. Has no Lepe catheter. Has a stool collection bag , and her stool is liquid. She had 2 prior episodes of C. difficile colitis last year one in April and the other one in May. Has no central line. Infectious disease consultation has been requested to evaluate the patient. Review of Systems Constitutional: DENIES: Fever, Chills Eyes: DENIES: Eye pain Ears, nose, mouth, throat: DENIES: Nasal discharge, Throat pain, Ear Pain, Running Nose, Sinus Pain Respiratory: COMPLAINS OF: Cough, Shortness of breath, DENIES: Hemoptysis, Sputum production Cardiovascular: DENIES: Chest pain, Syncope Gastrointestinal: COMPLAINS OF: Diarrhea, DENIES: Abdominal pain, Nausea, Vomiting, Difficulty Swallowing Genitourinary: COMPLAINS OF: Urinary incontinence Musculoskeletal: DENIES: Joint pain Integumentary: DENIES: Rash Neurologic: DENIES: Headache Psychiatric: COMPLAINS OF: Confusion, DENIES: Hallucinations Past Family Social History Allergies: Coded Allergies: Lactose (Verified Allergy, Severe, CRAMPS, DIARRHEA, 06/07/16) Past Medical History Hypertension Depression Anxiety Chronic kidney disease CVA Recurrent C. 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 Past Surgical History Hip surgery 02/2016 with revision, corticectomy Spinal cord stimulator Cardiac stent Left knee surgery, looks like previous knee arthroplasty. Active Ordered Medications Tylenol Albuterol Pulmicort Questran Catapres Vasotec Folic acid Mucinex Heparin Atrovent Lactinex Keppra Magnesium Lopressor Flagyl Protonix Zosyn Potassium Pravachol Prednisone Social History Lives with the son No smoking history No alcohol abuse No illicit drug use Physical Exam Vital Signs Vital Signs Date Time Temp Pulse Resp B/P Pulse Ox O2 Delivery O2 Flow Rate FiO2 12/28/16 07:27 98 Nasal Cannula 4.00 12/28/16 06:00 69 12/28/16 04:00 66 12/28/16 04:00 98.4 66 27 169/80 98 12/28/16 02:00 67 12/28/16 00:00 98.0 66 28 172/75 93 12/28/16 00:00 66 12/27/16 22:00 69 12/27/16 21:02 95 Nasal Cannula 4.00 12/27/16 20:00 70 12/27/16 20:00 97.5 70 27 174/74 96 12/27/16 19:00 93 Nasal Cannula 4.00 12/27/16 18:00 65 12/27/16 16:00 66 12/27/16 16:00 98.2 66 24 190/84 96 12/27/16 14:00 64 12/27/16 12:00 98.0 62 28 183/74 96 12/27/16 12:00 62 12/27/16 10:53 38 Physical Exam GENERAL: This is a well-nourished, well-developed female, was screaming when initially evaluated. She eventually calmed down, and answering all my questions. Not in any respiratory distress, and she is on nasal O2. She tells me she is 85, son's name is Anibal, she is in the hospital and the president is Mariama. SKIN: Cool and dry. No generalized rash. HEAD: Atraumatic. Normocephalic. No temporal or scalp tenderness. EYES: Pupils equal round and reactive. Extraocular motions intact. No scleral icterus. No injection or drainage. ENT: Nose without bleeding, or purulent drainage. Dry oral mucosa. Throat without erythema, or exudate. Uvula midline. Airway patent. NECK: Trachea midline. No JVD or lymphadenopathy. Supple, nontender, no meningeal signs. CARDIOVASCULAR: Regular rate and rhythm without murmurs, gallops, or rubs. RESPIRATORY: Clear to auscultation. Breath sounds equal bilaterally. No wheezes, rales, or rhonchi. Decreased breath sounds at the bases. GASTROINTESTINAL: Abdomen soft, nondistended. She has some mild tenderness in the suprapubic region. No hepato-splenomegaly, or palpable masses. No guarding. MUSCULOSKELETAL: Extremities without clubbing, cyanosis, or edema. No joint effusion, or edema noted. No calf tenderness. Negative Homans sign bilaterally. NEUROLOGICAL: Awake and alert. Cranial nerves II through XII intact. Motor and sensory grossly within normal limits. Five out of 5 muscle strength in all muscle groups. Normal speech. PSYCH: Agitated at time, cooperative LINE: PIV with no evidence of infection Laboratory Laboratory Tests Test 12/27/16 12/27/16 12/28/16 09:45 20:28 05:44 Stool C. difficile Toxin (PCR) NEGATIVE Stl C. difficile Toxin PRESUMPTIVE Epiderm 027 NEGATIVE Potassium Level 2.9 3.0 Phosphorus Level 2.0 1.3 Magnesium Level 1.9 1.9 Sodium Level 149 Chloride Level 115 Carbon Dioxide Level 22.7 Anion Gap 11 Blood Urea Nitrogen 13 Creatinine 1.28 Estimat Glomerular Filtration 40 Rate Random Glucose 172 Calcium Level 7.5 Result Diagram: 12/24/16 0521 12/28/16 0544 Imaging RADIOLOGY STUDIES/FILMS REVIEWED Chest X-Ray 12/27/16 0800 Signed Impressions: Service Date/Time: Tuesday, December 27, 2016 07:54 - CONCLUSION: 1. Increased airspace consolidation throughout the right lung with persistent right basilar pleural-parenchymal opacity likely representing pleural effusion with associated volume loss and/or consolidation. 2. Increased left basilar opacity likely representing airspace consolidation, small pleural effusion, and atelectasis. Bo Cordova MD Renal Ultrasound 12/22/16 0000 Signed Impressions: Service Date/Time: Thursday, December 22, 2016 18:16 - CONCLUSION: No evidence of hydronephrosis. Bilateral renal cysts. Yuri Garsia MD Chest CT 12/21/16 0000 Signed Impressions: Service Date/Time: Wednesday, December 21, 2016 18:27 - CONCLUSION: 14 mm spiculated nodule left lower lobe characteristic of malignancy until proven otherwise. Bilateral lower lobe consolidating airspace disease characteristic of pneumonia. Coronary artery stent. Yuri Garsia MD Assessment and Plan Assessment and Plan IMPRESSION Worsening CXR with increasing infiltrates R base, possibly with fluid, volume loss - PNA, ?fluid overload, especially since she had fluid resuscitation Diarrhea, C diff negative - previous Hx C diff last year April and 2015 RECOMMENDATION Change Zosyn to Rocephin Change Flagyl to po Continue Lactinex Check BNP Bladder scan, may need to reinsert lepe back Follow CXR, may need to do CT chest to further evaluate R lung Monitor progress I will follow along with you Thank you for this consultation Discussed Condition With D/W Malathi Chavez MD Dec 28, 2016 09:35
[2016-12-28] MEDS: cefTRIAXone INJ 2,000 MG in SODIUM CHLORIDE 0.9% INJ 100 ML IV SCH (12:17)
[2016-12-28] MEDS ORDERED: PHARMACY ORDERED LAB XX ONE (13:45)
[2016-12-28] MEDS: metroNIDAZOLE 500 MG TAB PO SCH ×2 (14:00→20:57)
[2016-12-28 16:53] LABS: POTASSIUM 3.8 MEQ/L (3.5-5.1)
--- NOTE | 2016-12-28 19:18 | HHI.PR ---
Subjective Remarks She seems calm today . No fever. Output is better. On Antibiotics for aspiration and Klebsiella in sputum. Moves arms and feet . Tries to answer questions Objective Vital Signs Date Time Temp Pulse Resp B/P Pulse Ox O2 Delivery O2 Flow Rate FiO2 12/28/16 18:16 81 12/28/16 16:09 83 12/28/16 16:00 99.2 95 24 154/84 95 12/28/16 14:00 73 12/28/16 12:00 75 12/28/16 10:00 71 12/28/16 08:00 98.0 63 26 161/74 95 12/28/16 07:27 98 Nasal Cannula 4.00 12/28/16 07:00 93 Nasal Cannula 4.00 12/28/16 06:00 69 12/28/16 04:00 66 12/28/16 04:00 98.4 66 27 169/80 98 12/28/16 02:00 67 12/28/16 00:00 98.0 66 28 172/75 93 12/28/16 00:00 66 12/27/16 22:00 69 12/27/16 21:02 95 Nasal Cannula 4.00 12/27/16 20:00 70 12/27/16 20:00 97.5 70 27 174/74 96 I/O 12/27/16 12/27/16 12/27/16 12/28/16 12/28/16 12/28/16 07:00 15:00 23:00 07:00 15:00 23:00 Intake Total 800 ml 1256 ml 1013 ml 824 ml 1900 ml Output Total 200 ml 100 ml 500 ml 1250 ml Balance 800 ml 1056 ml 913 ml 324 ml 650 ml Intake Oral 120 ml 120 ml 50 ml 100 ml 775 ml IV Total 680 ml 1136 ml 963 ml 724 ml 1125 ml Output Urine Total 200 ml 850 ml Stool Total 100 ml 500 ml 400 ml Bladder Scan Volume Amount 422 ml # Voids 3 1 1 2 # Bowel Movements 3 1 Result Diagram: 12/24/16 0521 12/28/16 1552 Procedures No procedures. Objective Remarks GENERAL: This elderly, averagely built, white female is agitated HEENT: Head normocephalic. Pupils reactive. Tongue is moist.. CHEST: Reveals occ wheezes in the upper lung beasley with basilar crackles. HEART: The heart sounds are irregular, S1 and S2 with no murmur. ABDOMEN: Abdomen is soft, protuberant. No mass. No organomegaly or tenderness. EXTREMITIES: Revealed no edema . Neurologically confused and does move all extremities. RECTAL: Exam is deferred. SKIN: Skin was warm. Assessment and Plan Assessment and Plan IMPRESSION 1. Bibasilar pneumonia with hypoxemia. 2. Probable aspiration pneumonia. 3. Left lower lobe lung nodule, rule out malignancy. 4. Acute kidney injury with chronic kidney disease. 5. Sepsis. 6. History of CVA. 7. History of hypertension and coronary artery disease. 8. Respiratory Failure Plan: 1. Continue antibiotics and switch to PO meds 2. Wean O2 to 3 L. 3. Chest X ray in am. 4. Continue Nebs qid , Duoneb. 5. Up in chair . 6. Xanax .25 mg tid prn for anxiety 7. CBC BMP. 8. PFT if she cooperates. 9. PET CT as OP for lung nodule Allison Schneider MD Dec 28, 2016 19:18
[2016-12-28] MEDS: RESP: ALBUTEROL 2.5 MG/IPRATROPIUM 0.5 MG NEB (PRN) NEB (20:15)
[2016-12-28] MEDS: PRAVASTATIN SOD 40 MG TAB PO SCH (20:59)
[2016-12-28] MEDS: DEXT 5%-NACL 0.9% 1000 ML INJ 1,000 ML IV SCH (21:19)
[2016-12-29] VITALS (13 sets, daily range): BP systolic 138–151; BP diastolic 70–93; PULSE 81–99; RESP 24–35; TEMP 97.6–98.9; O2SAT 92–98
[2016-12-29] MEDS: LAMOTRIGINE 300 MG PO SCH (01:31)
[2016-12-29 06:03] LABS: POTASSIUM 3.6 MEQ/L (3.5-5.1)
[2016-12-29] MEDS: metroNIDAZOLE 500 MG TAB PO SCH ×3 (06:19→20:23)
[2016-12-29] MEDS: CHOLESTYRAMINE 4 GM PACKET PO SCH ×3 (06:19→20:26)
[2016-12-29] MEDS: NYSTATIN 100,000 U/GM PWD 15 GM BTL TOPICAL SCH ×3 (06:19→20:50)
[2016-12-29] MEDS: HEPARIN SODIUM - SQ 10,000 UNITS/ML VIAL SQ SCH ×3 (06:19→20:28)
[2016-12-29] MEDS ORDERED: POTASSIUM CHLOR 20 MEQ PREMIX 100 ML IV ONE (07:45)
[2016-12-29] MEDS: RESP: BUDESONIDE 0.5 MG/2 ML NEB NEB SCH ×2 (08:08→20:37)
[2016-12-29] MEDS: RESP: ALBUTEROL 2.5 MG/IPRATROPIUM 0.5 MG NEB (PRN) NEB (08:09)
[2016-12-29] MEDS: MAGNESIUM OXIDE 400 MG TAB PO SCH ×2 (08:51→20:23)
[2016-12-29] MEDS: FOLIC ACID 1 MG TAB PO SCH (08:51)
[2016-12-29] MEDS: guaiFENesin E.R. 600 MG TAB PO SCH ×2 (08:51→20:23)
[2016-12-29] MEDS: PANTOPRAZOLE SOD 40 MG DELAYED RELEASE TAB PO SCH (08:51)
[2016-12-29] MEDS: predniSONE 10 MG TAB PO SCH (08:51)
[2016-12-29] MEDS: levETIRAcetam INJ 500 MG in SODIUM CHLORIDE 0.9% INJ 100 ML IV SCH ×2 (08:52→20:29)
[2016-12-29] MEDS: METOPROLOL TARTRATE 25 MG TAB PO SCH ×2 (08:52→20:26)
[2016-12-29] MEDS: LACTOBACILLUS ACIDOPHILUS 1 GM PACKET PO SCH ×4 (09:00→20:29)
[2016-12-29] MEDS: SODIUM CHLORIDE 0.9% FLUSH 5 ML FLUSH FLUSH SCH ×2 (09:17→20:29)
[2016-12-29] MEDS: cefTRIAXone INJ 2,000 MG in SODIUM CHLORIDE 0.9% INJ 100 ML IV SCH (11:46)
--- NOTE | 2016-12-29 12:46 | HHI.PR ---
Subjective Remarks She is confused . . No fever. Taking PO well.On Antibiotics for aspiration and Klebsiella in sputum. . Tries to answer questions Objective Vital Signs Date Time Temp Pulse Resp B/P Pulse Ox O2 Delivery O2 Flow Rate FiO2 12/29/16 08:10 96 Nasal Cannula 3.00 12/29/16 07:00 92 Nasal Cannula 3.00 12/29/16 06:00 91 12/29/16 04:00 93 12/29/16 04:00 98.9 91 28 148/78 92 12/29/16 02:00 84 12/29/16 00:00 85 12/29/16 00:00 98.5 85 26 138/83 96 12/28/16 22:00 77 12/28/16 20:15 98 Nasal Cannula 4.00 12/28/16 20:00 98.1 76 26 141/84 98 12/28/16 20:00 76 12/28/16 19:00 96 Nasal Cannula 4.00 12/28/16 18:16 81 12/28/16 16:09 83 12/28/16 16:00 99.2 95 24 154/84 95 12/28/16 14:00 73 I/O 12/28/16 12/28/16 12/28/16 12/29/16 12/29/16 12/29/16 07:00 15:00 23:00 07:00 15:00 23:00 Intake Total 824 ml 1900 ml 661 ml 409 ml Output Total 500 ml 1250 ml 550 ml 500 ml Balance 324 ml 650 ml 111 ml -91 ml Intake Oral 100 ml 775 ml 200 ml 250 ml IV Total 724 ml 1125 ml 461 ml 159 ml Output Urine Total 850 ml 350 ml 100 ml Stool Total 500 ml 400 ml 200 ml 400 ml Bladder Scan Volume Amount 422 ml # Voids 2 Result Diagram: 12/29/16 0434 Procedures No procedures. Objective Remarks GENERAL: This elderly, averagely built, white female is alert. HEENT: Head normocephalic. Pupils reactive. Tongue is moist.. CHEST: Reveals occ basilar crackles. HEART: The heart sounds are irregular, S1 and S2 with no murmur. ABDOMEN: Abdomen is soft, protuberant. No mass. No organomegaly or tenderness. EXTREMITIES: Revealed no edema . Neurologically confused and does move all extremities. RECTAL: Exam is deferred. SKIN: Skin was warm. Assessment and Plan Assessment and Plan IMPRESSION 1. Bibasilar pneumonia with hypoxemia. 2. Probable aspiration pneumonia. 3. Left lower lobe lung nodule, rule out malignancy. 4. Acute kidney injury with chronic kidney disease. 5. Sepsis. 6. History of CVA. 7. History of hypertension and coronary artery disease. 8. Respiratory Failure Plan: 1. Continue antibiotics per ID 2. Wean O2 to 3 L. 3. Transfer to tele 4. Continue Nebs qid , Duoneb. 5. Up in chair . 6. Xanax .25 mg tid prn for anxiety 7. D/C IV fluids. 8. PFT if she cooperates. 9. PET CT as OP for lung nodule Allison Schneider MD Dec 29, 2016 12:46
[2016-12-29] MEDS: ALPRAZolam 0.25 MG TAB PO PRN ×2 (13:25→20:22)
--- NOTE | 2016-12-29 13:59 | HHI.PR ---
Subjective Remarks This is a 86 female admitted due to Shortness of breath for five days, she has Hypertension, Depression Anxiety disorder Chronic kidney disease, CVA, recurrent C Diff x 3. CAD status post PCI and stent placement, status post Hip fracture with multiple hospitalizations, complicated with C diff, aspiration Pneumonia, came with Cough, Shortness of breath Encephalopathy improving. She continue with electrolyte derangement close replacement and follow up, her today her Potassium is 3.6 given replacement with 20 meq IV, Seen in the room in the presence of nurse anna Gentile, seen by ID specialist Doctor Malathi Fitzgerald, the patient has worsening infiltrates on Right base, possible fluid or volume loss, fluid overload, C Diff is negative, recommended to switch Flagyl to by mouth, continue Lactinex, recommended to get another CXR and CT chest to re evaluate Right Lung, Discussed with her Son Mr. Donell Borja he states his mother is supposed to be on Antidepressant and pain medicine, at this time agree not to continue Pain medicine sates she already had withdrawal from this pain medicines, no complaint of pain , as per philosophy specialist Doctor Jennie recommended to start the patient on Xanax PRN, her son asked me to re start anti depressants, she was at home on Prozac re started. Objective Vital Signs Date Time Temp Pulse Resp B/P Pulse Ox O2 Delivery O2 Flow Rate FiO2 12/29/16 12:00 98.1 99 35 148/93 95 12/29/16 12:00 99 12/29/16 10:00 89 12/29/16 08:10 96 Nasal Cannula 3.00 12/29/16 08:00 98.7 88 35 144/90 96 12/29/16 08:00 88 12/29/16 07:00 92 Nasal Cannula 3.00 12/29/16 06:00 91 12/29/16 04:00 93 12/29/16 04:00 98.9 91 28 148/78 92 12/29/16 02:00 84 12/29/16 00:00 85 12/29/16 00:00 98.5 85 26 138/83 96 12/28/16 22:00 77 12/28/16 20:15 98 Nasal Cannula 4.00 12/28/16 20:00 98.1 76 26 141/84 98 12/28/16 20:00 76 12/28/16 19:00 96 Nasal Cannula 4.00 12/28/16 18:16 81 12/28/16 16:09 83 12/28/16 16:00 99.2 95 24 154/84 95 12/28/16 14:00 73 I/O 12/28/16 12/28/16 12/28/16 12/29/16 12/29/16 12/29/16 07:00 15:00 23:00 07:00 15:00 23:00 Intake Total 824 ml 1900 ml 661 ml 409 ml Output Total 500 ml 1250 ml 550 ml 500 ml Balance 324 ml 650 ml 111 ml -91 ml Intake Oral 100 ml 775 ml 200 ml 250 ml IV Total 724 ml 1125 ml 461 ml 159 ml Output Urine Total 850 ml 350 ml 100 ml Stool Total 500 ml 400 ml 200 ml 400 ml Bladder Scan Volume Amount 422 ml # Voids 2 Result Diagram: 12/29/16 0434 Imaging Last Impressions Chest X-Ray 12/27/16 0800 Signed Impressions: Service Date/Time: Tuesday, December 27, 2016 07:54 - CONCLUSION: 1. Increased airspace consolidation throughout the right lung with persistent right basilar pleural-parenchymal opacity likely representing pleural effusion with associated volume loss and/or consolidation. 2. Increased left basilar opacity likely representing airspace consolidation, small pleural effusion, and atelectasis. Bo Cordova MD Renal Ultrasound 12/22/16 0000 Signed Impressions: Service Date/Time: Thursday, December 22, 2016 18:16 - CONCLUSION: No evidence of hydronephrosis. Bilateral renal cysts. Yuri Garsia MD Chest CT 12/21/16 0000 Signed Impressions: Service Date/Time: Wednesday, December 21, 2016 18:27 - CONCLUSION: 14 mm spiculated nodule left lower lobe characteristic of malignancy until proven otherwise. Bilateral lower lobe consolidating airspace disease characteristic of pneumonia. Coronary artery stent. Yuri Garsia MD Procedures No procedures. Other Results Laboratory Tests Test 12/26/16 12/27/16 12/28/16 12/28/16 09:00 09:45 05:44 12:01 Protein Corrected Calcium 9.7 MG/DL Total Protein 3.4 GM/DL Random Vancomycin Level 15.8 COMMENT Stool C. difficile Toxin (PCR) NEGATIVE Stl C. difficile Toxin PRESUMPTIVE Epiderm 027 NEGATIVE Sodium Level 149 MEQ/L Chloride Level 115 MEQ/L Carbon Dioxide Level 22.7 MEQ/L Anion Gap 11 MEQ/L Blood Urea Nitrogen 13 MG/DL Creatinine 1.28 MG/DL Estimat Glomerular Filtration 40 ML/MIN Rate Random Glucose 172 MG/DL Calcium Level 7.5 MG/DL Magnesium Level 1.9 MG/DL B-Type Natriuretic Peptide 978 PG/ML Test 12/29/16 04:34 Potassium Level 3.6 MEQ/L Phosphorus Level 2.8 MG/DL Objective Remarks GENERAL: No Distress. SKIN: Scattered ecchymosis bilateral upper extremities HEAD: Atraumatic. Normocephalic. No temporal or scalp tenderness. EYES: Extraocular motions intact. No scleral icterus. No injection or drainage. CARDIOVASCULAR: Regular rate and rhythm on evaluation, no murmurs. RESPIRATORY: Extrabronchial breath sounds diffusely rhonchus GASTROINTESTINAL: Abdomen soft, non-tender, nondistended. MUSCULOSKELETAL: Trace bilateral extremity edema. No calf tenderness. Negative Homans sign bilaterally. NEUROLOGICAL: Alert in person but not in place or time. No focal deficits. Medications and IVs Current Medications Medications (Trade) Dose Ordered Sig/Bucky Route Start Time Stop Time Status Last Admin (NS Flush) 2 ml UNSCH PRN FLUSH 12/21/16 17:45 (NS Flush) 2 ml BID FLUSH 12/21/16 21:00 12/29/16 09:17 (Tylenol) 650 mg Q4H PRN PO 12/21/16 17:45 (Colace) 100 mg Q12H PO 12/21/16 21:00 Hold (Heparin Inj) 5,000 units Q8H SQ 12/21/16 22:00 12/29/16 13:25 (Tylenol) 650 mg Q6H PRN PO 12/21/16 17:45 12/25/16 21:45 (Narcan Inj) 0.4 mg UNSCH PRN IV 12/21/16 17:45 (Aspirin) 325 mg DAILY PO 12/22/16 09:00 Hold (PROzac) 20 mg BID PO 12/21/16 21:00 Hold (Folate) 1 mg DAILY PO 12/22/16 09:00 12/29/16 08:51 (Pamelor) 20 mg HS PO 12/21/16 21:00 Hold (Pravachol) 40 mg HS PO 12/21/16 21:00 12/28/16 20:59 Patient Own Medication PT OWN MED: (Formoterol ... BID NEB 12/21/16 21:00 Hold Patient Own Medication PT OWN MED: (Lamotrig... DAILY@00 PO 12/22/16 00:00 12/29/16 01:31 Miscellaneous Information Patient in critical care unit? Ass... [id number] XX 12/21/16 22:45 Lactobacillus Acidophilus 1 gm 1 gm QID PO 12/22/16 09:00 12/29/16 13:00 (Levophed-Dextrose Drip) 250 ml @ 0 mls/hr TITRATE IV 12/22/16 00:15 (Brethine Inj) 1 mg UNSCH PRN SQ 12/22/16 00:15 Nystatin 1 applic 1 applic Q8HR TOPICAL 12/22/16 06:00 12/29/16 13:25 (Keppra Inj/NS Inj) 105 ml @ 420 mls/hr Q12HR IV 12/22/16 21:00 12/29/16 08:52 (Mucinex Er) 600 mg BID PO 12/25/16 09:00 12/29/16 08:51 (Protonix) 40 mg DAILY PO 12/27/16 09:00 12/29/16 08:51 (Lopressor) 25 mg Q12HR PO 12/27/16 09:00 12/29/16 08:52 (Mag-Ox) 800 mg BID PO 12/27/16 09:00 12/29/16 08:51 Clonidine 0.1 mg 0.1 mg Q6H PRN PO 12/27/16 08:00 12/28/16 00:44 Potassium Chloride 100 ml @ 50 mls/hr Q2H PRN IV 12/27/16 23:00 (KCl 20 Meq Premix Inj) 100 ml @ 50 mls/hr Q2H PRN IV 12/27/16 23:00 12/28/16 09:01 Potassium Chloride 40 meq 40 meq UNSCH PRN PO/TUBE 12/27/16 23:00 Potassium Chloride 100 ml @ 25 mls/hr UNSCH PRN IV 12/27/16 23:00 Potassium Chloride 100 ml @ 50 mls/hr Q2H PRN IV 12/27/16 23:00 (Magnesium Sulfate Inj/NS Inj) 100 ml @ 50 mls/hr UNSCH PRN IV 12/27/16 23:00 Magnesium Oxide 800 mg 800 mg UNSCH PRN PO 12/27/16 23:00 (Magnesium Sulfate Inj/NS Inj) 100 ml @ 50 mls/hr UNSCH PRN IV 12/27/16 23:00 Potassium Phosphate 2000 mg 2,000 mg Q4H PRN PO 12/27/16 23:00 12/28/16 02:34 (Sodium Phosphate Inj/NS 250 ml Inj) 250 ml @ 42 mls/hr UNSCH PRN IV 12/27/16 23:00 (KCl 40 Meq/30 ml Liq) 40 meq UNSCH PRN PO/TUBE 12/27/16 23:00 Potassium Phosphate 2000 mg 2,000 mg UNSCH PRN PO/TUBE 12/27/16 23:00 (Potassium Phosphate Inj/NS 250 ml Inj) 260 ml @ 42 mls/hr UNSCH PRN IV 12/27/16 23:00 12/28/16 06:52 (Questran 4 Gm Pkt) 4 gm Q8HR PO 12/28/16 08:45 12/29/16 13:25 Enalaprilat 1.25 mg 1.25 mg Q4H PRN IV PUSH 12/28/16 09:00 (Rocephin Inj/NS Inj) 100 ml @ 200 mls/hr Q24H IV 12/28/16 10:00 12/29/16 11:46 (Flagyl) 500 mg Q8HR PO 12/28/16 14:00 12/29/16 13:25 (Deltasone) 10 mg DAILY PO 12/30/16 09:00 (Xanax) 0.25 mg Q6H PRN PO 12/29/16 13:00 12/29/16 13:25 A/P Assessment and Plan 1. Pneumonia Bibasilar with Hypoxemia, philosophy specialist following, Probable Aspiration pneumonia continue antibiotics. Bronchodilator, Mucolytic and incentive spirometry. Steroids. clinically improving Sputum growing Klebsiella Pneumonia will continue Zosyn stable Pulmonary and hearing specialist Doctor Jennie following. asked for Infectious Disease specialist consult patient with worsening condition has Increased airspace consolidation throughout the right lung with persistent right basilar pleural-parenchymal opacity likely representing pleural effusion with associated volume loss and/or consolidation. asked for new CXR and CT scan as per ID specialist. 2. Left lower lobe lung nodule rule out malignancy. will need PET scan as outpatient. 3. Acute Kidney Injury with chronic kidney disease III stable. 4. Sepsis continue antibiotics. Zosyn. Sputum Culture growing Klebsiella Pneumonia. as per ID specialist continue Ceftriaxone. 5. CVA by history 6. Hypertension Uncontrolled added Clonidine and increased Metoprolol to 25 mg BID. 7. Atrial Fibrillation now in sinus rhythm with Beta blockers. 8. Dementia Stable 9. electrolyte derangement continue replacement. C Diff negative, continue with Diarrhea, start on Questran. as per ID specialist continue Flagyl by mouth. DVT prophylaxis with Heparin. Discussed with Patient and her Son Mr. Donell Borja all questions answered to the best of My abilities. Discharge Planning transfer to Medical floor and continue Telemetry. Luciano Nicolas MD Dec 29, 2016 13:59
--- NOTE | 2016-12-29 14:22 | HHI.IDPN ---
Subjective Subjective Remarks Notes reviewed No fever On nasal O2 Engle reinserted due to high bladder scan volume Antibiotics Rocephin Flagyl Past Medical History Hypertension Depression Anxiety Chronic kidney disease CVA Recurrent C. 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 Past Surgical History Hip surgery 02/2016 with revision, corticectomy Spinal cord stimulator Cardiac stent Left knee surgery, looks like previous knee arthroplasty. Allergies: Coded Allergies: Lactose (Verified Allergy, Severe, CRAMPS, DIARRHEA, 06/07/16) Objective . Vital Signs Date Time Temp Pulse Resp B/P Pulse Ox O2 Delivery O2 Flow Rate FiO2 12/29/16 12:00 98.1 99 35 148/93 95 12/29/16 12:00 99 12/29/16 10:00 89 12/29/16 08:10 96 Nasal Cannula 3.00 12/29/16 08:00 98.7 88 35 144/90 96 12/29/16 08:00 88 12/29/16 07:00 92 Nasal Cannula 3.00 12/29/16 06:00 91 12/29/16 04:00 93 12/29/16 04:00 98.9 91 28 148/78 92 12/29/16 02:00 84 12/29/16 00:00 85 12/29/16 00:00 98.5 85 26 138/83 96 12/28/16 22:00 77 12/28/16 20:15 98 Nasal Cannula 4.00 12/28/16 20:00 98.1 76 26 141/84 98 12/28/16 20:00 76 12/28/16 19:00 96 Nasal Cannula 4.00 12/28/16 18:16 81 12/28/16 16:09 83 12/28/16 16:00 99.2 95 24 154/84 95 12/28/16 12/28/16 12/29/16 15:00 23:00 07:00 Intake Total 1900 ml 661 ml 409 ml Output Total 1250 ml 550 ml 500 ml Balance 650 ml 111 ml -91 ml Intake Oral 775 ml 200 ml 250 ml IV Total 1125 ml 461 ml 159 ml Output Urine Total 850 ml 350 ml 100 ml Stool Total 400 ml 200 ml 400 ml Bladder Scan Volume Amount 422 ml . Laboratory Tests Test 12/27/16 12/28/16 12/28/16 12/28/16 20:28 05:44 12:01 15:52 Potassium Level 2.9 MEQ/L 3.0 MEQ/L 3.8 MEQ/L Phosphorus Level 2.0 MG/DL 1.3 MG/DL 4.0 MG/DL Magnesium Level 1.9 MG/DL 1.9 MG/DL Sodium Level 149 MEQ/L Chloride Level 115 MEQ/L Carbon Dioxide Level 22.7 MEQ/L Anion Gap 11 MEQ/L Blood Urea Nitrogen 13 MG/DL Creatinine 1.28 MG/DL Estimat Glomerular Filtration 40 ML/MIN Rate Random Glucose 172 MG/DL Calcium Level 7.5 MG/DL B-Type Natriuretic Peptide 978 PG/ML Test 12/29/16 04:34 Potassium Level 3.6 MEQ/L Phosphorus Level 2.8 MG/DL Imaging Chest X-Ray 12/27/16 0800 Signed Impressions: Service Date/Time: Tuesday, December 27, 2016 07:54 - CONCLUSION: 1. Increased airspace consolidation throughout the right lung with persistent right basilar pleural-parenchymal opacity likely representing pleural effusion with associated volume loss and/or consolidation. 2. Increased left basilar opacity likely representing airspace consolidation, small pleural effusion, and atelectasis. Bo Cordova MD Renal Ultrasound 12/22/16 0000 Signed Impressions: Service Date/Time: Thursday, December 22, 2016 18:16 - CONCLUSION: No evidence of hydronephrosis. Bilateral renal cysts. Yuri Gasria MD Chest CT 12/21/16 0000 Signed Impressions: Service Date/Time: Wednesday, December 21, 2016 18:27 - CONCLUSION: 14 mm spiculated nodule left lower lobe characteristic of malignancy until proven otherwise. Bilateral lower lobe consolidating airspace disease characteristic of pneumonia. Coronary artery stent. Yuri Garsia MD Physical Exam GENERAL: Awake and alert, NAD SKIN: Cool and dry. No generalized rash. HEAD: Atraumatic. Normocephalic. No temporal or scalp tenderness. EYES: Pupils equal round and reactive. Extraocular motions intact. No scleral icterus. No injection or drainage. ENT: Nose without bleeding, or purulent drainage. Dry oral mucosa. NECK: Supple, nontender, no meningeal signs. CARDIOVASCULAR: Regular rate and rhythm without murmurs, gallops, or rubs. RESPIRATORY: Clear to auscultation. Breath sounds equal bilaterally. No wheezes, rales, or rhonchi. Decreased breath sounds at the bases. GASTROINTESTINAL: Abdomen soft, not tender, nondistended. No hepato- splenomegaly, or palpable masses. No guarding. MUSCULOSKELETAL: Extremities without clubbing, cyanosis, or edema. No calf tenderness. Negative Homans sign bilaterally. NEUROLOGICAL: Non-focal PSYCH: cooperative LINE: PIV with no evidence of infection Assessment & Plan Remarks IMPRESSION Dejuan infiltrates, possibly with fluid, volume loss - PNA, ?fluid overload, especially since she resuscitated Diarrhea, C diff negative - previous Hx C diff last year April and 2015 RECOMMENDATION Continue Rocephin Continue Flagyl Continue Lactinex Monitor progress Malathi Fitzgerald MD Dec 29, 2016 14:22
--- NOTE | 2016-12-29 14:46 | RADRPT ---
EXAM DATE/TIME: 12/29/2016 13:23 [facility] COMPARISON: No previous studies available for comparison. INDICATIONS : Pneumonia. MEDICAL HISTORY : Cardiovascular disease. Hypertension Deep venous thrombosis. SURGICAL HISTORY : Appendectomy. Cholecystectomy. Hysterectomy. ENCOUNTER: Subsequent ACUITY: 1 week PAIN SCORE: Non-responsive. LOCATION: Bilateral chest FINDINGS: Bilateral patchy airspace opacities persists, essentially throughout the right lung and basilar predo minant on the left. There is a small right and tiny left pleural effusion. I don't see a significant change. No pneumothorax seen. Heart size stable, upper limits of normal. CONCLUSION: Right greater than left consolidation and pleural effusions as above, not significantly changed. Bo Rosa MD on December 29, 2016 at 14:43 Board Certified Radiologist. This report was verified electronically.
--- NOTE | 2016-12-29 15:54 | HHI.HCPN ---
Reason for visit a. To assist with evaluation and management of symptoms including: Debility , dysphagia and shortness of breath. b. To assist medical decision maker(s) with: better understanding of current medical conditions; weighing benefits/burdens of medical treatment options; making medical treatment decisions. . Subjective/Interval History Called at bedside by patient's son Anibal to readdress goals of care. Patient remains in ICU. Under the care of hospitalist group since 12/24/16, likely to transfer to medical floor when bed available. Tolerating O2 via nasal cannula at 3 L. Remains on febrile, stable BP. Patient calm during my visit. Son reports that patient has been having restlessness/agitation episodes that son related to opioid withdrawal. Patient with chronic back pain taking Morphine at home. Also taking as per son Seroquel 12.5mg at HS with good effect. Patient has been placed on SSRI and Xanax 0.25 q6h PRN added. Reviewed with son that SSRI may take up to 6 weeks to take effect. Son wishing for Seroquel to be added to pt's regimen. Dr. ram was notified by bedside RN. Potassium 3.6, phos 2.8. Chest x-ray today showing consolidation and pleural effusion to right greater than left. Patient being followed by pulmonology -Dr. Cowan. Plan for PET/CT as outpatient for evaluation of lung nodule. . Family/friend interactions Son Anibal wishing to readdress code status. reviewed risk, benefits and limitations of CPR, intubation and mech ventilation given patient's clinical condition. Son wishing for alt code to include ACLS meds and shock only. NO to intubation, mech ventilation or chest compressions. Upon discharge, son elects for patient to be full DNR/DNI. Community DNR has been signed. Discharge goal remains unchanged, rehab for physical strengthening. If clinical condition worsen, family to transition patient's to comfort-direcetd care with hospice but for now, family electing to continue medical management and allow time for medical improvement. . Advance Directives Living Will: Completed, but not made available Health Care Surrogate: Completed, but not made available Durable Power of [facility] Associate: Completed, but not made available Advance Directive Specifics Date completed: Pending documentation from family. . Health Care Surrogate(s): As per family, designated healthcare surrogate this patient's son Anibal Borja. . Documented care wishes: Pending copy of living will. . Significant change in goals: ALT CODE. ACLS and shock only. Objective Vital Signs Date Time Temp Pulse Resp B/P Pulse Ox O2 Delivery O2 Flow Rate FiO2 12/29/16 14:00 85 12/29/16 12:00 98.1 99 35 148/93 95 12/29/16 12:00 99 12/29/16 10:00 89 12/29/16 08:10 96 Nasal Cannula 3.00 12/29/16 08:00 98.7 88 35 144/90 96 12/29/16 08:00 88 12/29/16 07:00 92 Nasal Cannula 3.00 12/29/16 06:00 91 12/29/16 04:00 93 12/29/16 04:00 98.9 91 28 148/78 92 12/29/16 02:00 84 12/29/16 00:00 85 12/29/16 00:00 98.5 85 26 138/83 96 12/28/16 22:00 77 12/28/16 20:15 98 Nasal Cannula 4.00 12/28/16 20:00 98.1 76 26 141/84 98 12/28/16 20:00 76 12/28/16 19:00 96 Nasal Cannula 4.00 12/28/16 18:16 81 12/28/16 16:09 83 12/28/16 16:00 99.2 95 24 154/84 95 Intake & Output 12/29/16 12/29/16 07:00 19:00 Intake Total 1070 ml 1093 ml Output Total 1050 ml 150 ml Balance 20 ml 943 ml Intake Oral 450 ml 360 ml IV Total 620 ml 733 ml Output Urine Total 450 ml 100 ml Stool Total 600 ml 50 ml Physical Exam CONSTITUTIONAL/GENERAL: This is a frail, thin elderly female in no acute distress. Awake, alert. Following some commands. TUBES/LINES/DRAINS: PIV's, face mask, Engle catheter. SKIN: No jaundice, rashes, or lesions. Ecchymoses on upper extremities. No wounds seen anteriorly. Skin temperature appropriate. Not diaphoretic. HEAD: Atraumatic. Normocephalic. EYES: Pupils equal and round and reactive. No scleral icterus. No injection or drainage. ENT: Hearing appears normal. Nose without bleeding or purulent drainage. Mouth close. NECK: Trachea midline. Supple. CARDIOVASCULAR: Irregular rate and rhythm. Edema to lower extremities. RESPIRATORY/CHEST: Symmetric, unlabored respirations. Fine coarse breath sounds. On oxygen via nasal cannula. GASTROINTESTINAL: Abdomen soft, round. Nontender. No guarding. Bowel sounds present. GENITOURINARY: Without palpable bladder distension. Engle catheter in place. MUSCULOSKELETAL: Extremities without clubbing, cyanosis. Bilateral hands contracture, moderate tremors NEUROLOGICAL: Awake, alert to self. Disoriented as to place and situation. Verbal but not always communicate needs secondary to confusion. Following some commands. PSYCHIATRIC: calm. . Diagnostic Tests Laboratory Laboratory Tests Test 12/27/16 12/27/16 12/27/16 12/28/16 06:00 09:45 20:28 05:44 Sodium Level 148 MEQ/L 149 MEQ/L (136-145) (136-145) Potassium Level 2.3 MEQ/L 2.9 MEQ/L 3.0 MEQ/L (3.5-5.1) (3.5-5.1) (3.5-5.1) Chloride Level 114 MEQ/L 115 MEQ/L (98-107) (98-107) Carbon Dioxide Level 23.6 MEQ/L 22.7 MEQ/L (21.0-32.0) (21.0-32.0) Anion Gap 10 MEQ/L (5-15) 11 MEQ/L (5-15) Blood Urea Nitrogen 14 MG/DL (7-18) 13 MG/DL (7-18) Creatinine 0.97 MG/DL 1.28 MG/DL (0.50-1.00) (0.50-1.00) Estimat Glomerular Filtration 54 ML/MIN (>89) 40 ML/MIN (>89) Rate Random Glucose 139 MG/DL 172 MG/DL (74-106) (74-106) Calcium Level 7.7 MG/DL 7.5 MG/DL (8.5-10.1) (8.5-10.1) Phosphorus Level 2.0 MG/DL 2.0 MG/DL 1.3 MG/DL (2.5-4.9) (2.5-4.9) (2.5-4.9) Magnesium Level 1.4 MG/DL 1.9 MG/DL 1.9 MG/DL (1.5-2.5) (1.5-2.5) (1.5-2.5) Stool C. difficile Toxin (PCR) NEGATIVE (NEGATIVE) Stl C. difficile Toxin PRESUMPTIVE Epiderm 027 NEGATIVE (NEGATIVE) Test 12/28/16 12/28/16 12/29/16 12:01 15:52 04:34 B-Type Natriuretic Peptide 978 PG/ML (0-100) Potassium Level 3.8 MEQ/L 3.6 MEQ/L (3.5-5.1) (3.5-5.1) Phosphorus Level 4.0 MG/DL 2.8 MG/DL (2.5-4.9) (2.5-4.9) Result Diagram: 12/29/16 0434 Imaging Last 24 hours Impressions Chest X-Ray 12/29/16 0000 Signed Impressions: Service Date/Time: Thursday, December 29, 2016 13:23 - CONCLUSION: Right greater than left consolidation and pleural effusions as above, not significantly changed. oB Rosa MD Assessment and Plan Disease Oriented Problem List: (1) Respiratory failure, acute (2) Hypotension (3) Pneumonia (4) CKD (chronic kidney disease) stage 3, GFR 30-59 ml/min (5) Failure to thrive in adult (6) Dementia Symptom Scale: (1) Shortness of breath 0-10 Scale: Unable to quantify Comment: secondary to pna and likely malignancy. Improving. Tolerating oxygen via nasal cannula 4 L. (2) Debility 0-10 Scale: Unable to quantify Comment: Progressive since February 2016. Depending on all ADLs. (3) Dysphagia 0-10 Scale: Unable to quantify Comment: Secondary to advanced dementia. Pureed diet and thickened liquids. Pertinent Non-Medical Issues Psychosocial: , has 5 children. Spiritual: Christianity. Legal: Living will completed. Pending copy. Ethical issues impacting care: No ethical issues have been identified. . Important Contacts Donell Borja [phone]. [facility] -Son Anibal Borja [phone]. . Prognosis Mrs. Borja is an 86-year-old female with a past medical history of right femur fracture secondary to mechanical fall s/p intramedullary nail fixation on February complicated by migration of screw and infection for which she underwent removal of hardware and intramedullary annalise fixation in April 27, 2016. All other medical history includes dementia, CAD status post stents, CHF hypertension, chronic kidney disease stage III, anxiety/depression, dysphagia with PEG tube placement in May 2016. Patient has been between acute hospitalizations, acute rehabilitation and fpc facility since February 2016. Acute decline and cognitive and functional status. Now depending on all ADLs. CT of chest on this admission reveals lung nodule highly suggestive of malignancy. Patient's overall prognosis is poor given her age, progressive decline in functional and cognitive status, chronic comorbidities, acute events, frequent hospitalizations and high likelihood of lung malignancy. Patient at very high risk for further decline, complications and . . Code Status: Alternative Code Plan * CODE STATUS: ALT code. ACLS and shock only. NO to intubation, NO mech ventilation, NO chest compressions. Upon discharge, son elects for patient to be full DNR/DNI. * Community DNR completed. * MEDICAL DECISION-MAKING: Patient not decisional secondary to clinical condition, dementia. Family reports that son Anibal Borja is designated healthcare surrogate. * GOALS OF CARE: 12/29/16 -Continue current medical management and allow time for clinical improvement. Discharge goal remains unchanged, rehab for physical strengthening. If clinical condition worsen or unable to tolerate rehab, family to transition patient's to comfort-directed care with hospice but for now, family electing to continue medical management and allow time for medical improvement. * SYMPTOMS: == Shortness of breath, multifactorial -secondary to pneumonia and probable lung malignancy. Appears to be improving, tolerating oxygen via nasal cannula 3 L. Pulmonology following. == Debility, progressive since February 2016. Likely to worsen. Goal to DC to rehab == Dysphagia, secondary to advanced dementia and CVA, history of PEG tube. On pured diet and honey thickened liquids. Patient presents with failure to thrive, albumin 2.6. * Case has been discussed with bedside RN. * Palliative care contact information has been provided to family. * Palliative care will continue to follow-up with this hospitalizations for clarifications of goals of care as clinical course evolves. . Time Spent Total Floor Time (mins): 38 (Total time to include review and summarization of available medical records, physical exam, GOC discussion with son and case discussion with bedside RN. ) >50% Counseling/Coord of Care: Yes Attestation To help prompt me to consider important information that might be impacting today's encounter and assessment, information from prior notes written by myself or my colleagues may have been "brought forward" into today's note. My signature on this note, however, is an attestation that I personally performed the exam, history, and/or decision-making noted today, and, unless otherwise indicated, the interactions with patient, family, and staff as well as the review of records all occurred today. I also attest that the listed assessment and stated plan reflect my best clinical judgment today based on the combination of historical information, prior notes, and today's exam/ interactions. When time spent is documented, it refers only to time spent today by the signer, or if indicated, combined time spent today by collaborating physician/nurse practitioner. Carol Gonzalez Dec 29, 2016 15:54
[2016-12-29] MEDS: PRAVASTATIN SOD 40 MG TAB PO SCH (20:24)
[2016-12-29] MEDS: FLUoxetine HCL 20 MG CAP PO SCH (20:24)
[2016-12-29] MEDS: RESP: IPRATROPIUM 0.5 MG/2.5 ML NEB NEB PRN (20:37)
[2016-12-30] VITALS (12 sets, daily range): BP systolic 120–159; BP diastolic 70–83; PULSE 78–141; RESP 22–30; TEMP 97.7–98.9; O2SAT 95–100
[2016-12-30] MEDS: LAMOTRIGINE 300 MG PO SCH (01:16)
[2016-12-30] MEDS ORDERED: DILTIAZEM HCL 25 MG/5 ML VIAL IV PRN ×2 (02:30→11:45)
[2016-12-30] MEDS: HEPARIN SODIUM - SQ 10,000 UNITS/ML VIAL SQ SCH ×2 (06:16→14:00)
[2016-12-30] MEDS: metroNIDAZOLE 500 MG TAB PO SCH ×2 (06:16→15:40)
[2016-12-30] MEDS: NYSTATIN 100,000 U/GM PWD 15 GM BTL TOPICAL SCH ×2 (06:16→15:41)
[2016-12-30] MEDS: CHOLESTYRAMINE 4 GM PACKET PO SCH ×2 (06:16→15:40)
[2016-12-30 06:21] LABS: BASOPHIL # 0.1 TH/MM3 (0-0.2); BASOPHIL % 0.3 % (0.0-2.0); HEMATOCRIT 35.6 % (35.0-46.0); LYMPH % 3.8 % (9.0-44.0); LYMPHOCYTE # 0.8 TH/MM3 (1.0-4.8); MEAN CELL VOLUME 88.1 FL (80.0-100.0); MEAN CORPUSCULAR HEMOGLOBIN 28.5 PG (27.0-34.0); MEAN CORPUSCULAR HGB CONC 32.4 % (32.0-36.0); MONO % 4.1 % (0.0-8.0); NEUT % 91.8 % (16.0-70.0); PLATELET COUNT 265 TH/MM3 (150-450); RED BLOOD COUNT 4.04 MIL/MM3 (4.00-5.30); RED CELL DISTRIBUTION WIDTH 16.7 % (11.6-17.2); WHITE BLOOD COUNT 20.7 TH/MM3 (4.0-11.0)
[2016-12-30 06:24] LABS: HEMO FLAGS AUTO DIFF
[2016-12-30 06:58] LABS: BICARBONATE 17.2 MEQ/L (21.0-32.0); MAGNESIUM 2.1 MG/DL (1.5-2.5); POTASSIUM 4.4 MEQ/L (3.5-5.1)
[2016-12-30 07:05] LABS: BANDS 2 % (0-6); MYELOCYTES 1 % (0-0); NEUTROPHIL # MANUAL DIFF 18.8 TH/MM3 (1.8-7.7); POLYS (SEG NEUTROPHILS) 88 % (16-70); WBC DIFF SAMPLE 100
[2016-12-30 07:06] LABS: BURR CELLS 1+ (NORMAL); PLATELET ESTIMATE SMEAR NORMAL (NORMAL); PLATELET MORPHOLOGY NORMAL (NORMAL); SCAN/DIFF FINAL DIFF MANUAL
[2016-12-30 08:21] LABS: INTERNATIONAL NORMALIZED RATIO 1.1 RATIO; PROTHROMBIN TIME - PATIENT 12.6 SEC (9.8-11.6)
[2016-12-30] MEDS: RESP: BUDESONIDE 0.5 MG/2 ML NEB NEB SCH (08:21)
[2016-12-30] MEDS: RESP: ALBUTEROL 2.5 MG/IPRATROPIUM 0.5 MG NEB (PRN) NEB (08:21)
--- NOTE | 2016-12-30 08:23 | HHI.PR ---
Subjective Remarks f/u for PNA and respiratory distress. Patient's nurse is at bedside. She stated patient went into afib with RVR at 1 am today and was given cardizem. She converted back quickly. Nurse also stated patient is not urinating and asking to keep lepe in since this has been a problem since her folwy was d'addy. Patient denied worsening of SOB but per nurse her breathing has worsen. + cough but denied worsening. Denied any pain. Patient remains afebrile. Objective Vitals Vital Signs Date Time Temp Pulse Resp B/P Pulse Ox O2 Delivery O2 Flow Rate FiO2 12/30/16 06:00 141 12/30/16 04:00 98.5 114 22 123/80 95 12/30/16 04:00 114 12/30/16 03:20 95 Nasal Cannula 6.00 12/30/16 02:00 90 12/30/16 00:00 83 12/30/16 00:00 98.1 83 24 144/79 95 12/29/16 22:00 98 12/29/16 20:37 Nasal Cannula 3.00 12/29/16 20:00 89 12/29/16 20:00 97.6 89 24 151/81 96 12/29/16 19:00 92 Nasal Cannula 4.00 12/29/16 18:00 93 12/29/16 16:00 81 12/29/16 16:00 98.8 81 30 145/70 98 12/29/16 14:00 85 12/29/16 12:00 98.1 99 35 148/93 95 12/29/16 12:00 99 12/29/16 10:00 89 I/O 12/29/16 12/29/16 12/29/16 12/30/16 12/30/16 12/30/16 07:00 15:00 23:00 07:00 15:00 23:00 Intake Total 409 ml 1093 ml 715 ml 640 ml Output Total 500 ml 150 ml 50 ml 50 ml Balance -91 ml 943 ml 665 ml 590 ml Intake Oral 250 ml 360 ml 240 ml 240 ml IV Total 159 ml 733 ml 475 ml 400 ml Output Urine Total 100 ml 100 ml 0 ml 0 ml Stool Total 400 ml 50 ml 50 ml 50 ml Bladder Scan Volume Amount 463 ml Result Diagram: 12/30/16 0545 12/30/16 2442 Objective Remarks GENERAL: SKIN: Warm and dry with increase RR> HEAD: Normocephalic. EYES: No scleral icterus. No injection or drainage. NECK: Supple, trachea midline. No JVD or lymphadenopathy. CARDIOVASCULAR: Regular rate and rhythm without murmurs, gallops, or rubs. RESPIRATORY: Breath sounds equal bilaterally. No accessory muscle use. GASTROINTESTINAL: Abdomen soft, non-tender, nondistended. Medications and IVs Current Medications IV Flush (NS Flush) 2 ml UNSCH PRN IVF FLUSH AFTER USING IV ACCESS; Start 12/21 at 15:00; Stop 12/21/16 at 18:10; Status DC IV Flush (NS Flush) 2 ml UNSCH PRN IVF FLUSH AFTER USING IV ACCESS; Start 12/21 at 15:00; Stop 12/21/16 at 18:10; Status DC IV Flush 2 ml 2 ml UNSCH PRN IVF FLUSH AFTER USING IV ACCESS; Start 12/21/16 at 15:00; Stop 12/21/16 at 18:10; Status DC Sodium Chloride (NS 1000 ml Inj) 1,000 ml @ 999 mls/hr BOLUS ONCE IV Last administered on 12/21/16 16:30; Start 12/21/16 at 16:30; Stop 12/21/16 at 17:30 ; Status DC IV Flush (NS Flush) 2 ml UNSCH PRN FLUSH FLUSH AFTER USING IV ACCESS; Start at 17:45 IV Flush (NS Flush) 2 ml BID FLUSH Last administered on 12/29/16 20:29; Start 12/21/16 at 21:00 Acetaminophen (Tylenol) 650 mg Q4H PRN PO TEMP > 100.4; Start 12/21/16 at 17:45 Docusate Sodium (Colace) 100 mg Q12H PO ; Start 12/21/16 at 21:00; Status Hold Heparin Sodium (Porcine) (Heparin Inj) 5,000 units Q8H SQ Last administered on 12/30/16 06:16; Start 12/21/16 at 22:00 Acetaminophen (Tylenol) 650 mg Q6H PRN PO PAIN SCALE 1 TO 2 Last administered on 12/25/16 21:45; Start 12/21/16 at 17:45 Naloxone HCl (Narcan Inj) 0.4 mg UNSCH PRN IV SEE LABEL COMMENTS; Start at 17:45 Amlodipine Besylate (Norvasc) 5 mg DAILY PO ; Start 12/22/16 at 09:00; Stop at 09:00; Status DC Aspirin (Aspirin) 325 mg DAILY PO ; Start 12/22/16 at 09:00; Status Hold Budesonide (Pulmicort Respule Neb) 0.5 mg BID NEB NEB Last administered on 12/29 20:37; Start 12/21/16 at 20:00 Carvedilol (Coreg) 6.25 mg BID PO ; Start 12/21/16 at 21:00; Stop 12/21/16 at 23 :59; Status DC Fluoxetine HCl (PROzac) 20 mg BID PO ; Start 12/21/16 at 21:00; Stop 12/29/16 at 14:27; Status DC Folic Acid (Folate) 1 mg DAILY PO Last administered on 12/29/16 08:51; Start at 09:00 Nortriptyline HCl (Pamelor) 20 mg HS PO ; Start 12/21/16 at 21:00; Status Hold Pantoprazole Sodium (Protonix) 20 mg BIDAC PO Last administered on 12/22/16 10: 15; Start 12/22/16 at 07:00; Stop 12/22/16 at 20:28; Status DC Pravastatin Sodium (Pravachol) 40 mg HS PO Last administered on 12/29/16 20:24 ; Start 12/21/16 at 21:00 Patient Own Medication PT OWN MED: (Formoterol ... BID NEB ; Start 12/21/16 at 21:00; Status Hold Patient Own Medication PT OWN MED: (Lamotrig... DAILY@00 PO Last administered on 12/30/16 01:16; Start 12/22/16 at 00:00 Ipratropium [place] 0.5 mg 0.5 mg Q2HR NEB PRN NEB dyspnea Last administered on 12/29/16 20:37; Start 12/21/16 at 18:45 Sodium Chloride 1,000 ml @ 2,000 mls/hr Q30M ONCE IV Last administered on 12/21 19:25; Start 12/21/16 at 19:30; Stop 12/21/16 at 20:31; Status DC Sodium Chloride (NS 1000 ml Inj) 1,000 ml @ 999 mls/hr BOLUS ONCE IV ; Start 12/21/16 at 21:00; Stop 12/21/16 at 22:00; Status DC Hydrocortisone Sodium Succinate 100 mg 100 mg Q8HR IV PUSH Last administered on 12/22/16 10:12; Start 12/21/16 at 22:00; Stop 12/22/16 at 13:13; Status DC Cefepime HCl/ Sodium Chloride (Maxipime Inj/NS Inj) 100 ml @ 200 mls/hr Q8HR IV Last administered on 12/21/16 23:47; Start 12/21/16 at 22:30; Stop 12/22/16 at 00:56; Status DC Miscellaneous Information Patient in critical care unit? Ass... [id number] ; Start 12/21/16 at 22:45 Chlorhexidine Gluconate (Chlorhexidine 2% Cloth) 3 pack DAILY@04 TOP Last administered on 12/26/16 04:00; Start 12/22/16 at 04:00; Stop 12/26/16 at 04:01; Status DC Chlorhexidine Gluconate 3 pack 3 pack UNSCH PRN TOP HYGIENIC CARE; Start at 22:45; Stop 12/26/16 at 22:44; Status DC Sodium Chloride (NS 1000 ml Inj) 1,000 ml @ 100 mls/hr Q10H IV Last administered on 12/22/16 00:00; Start 12/22/16 at 00:00; Stop 12/22/16 at 13:13; Status DC Lactobacillus Acidophilus 1 gm 1 gm QID PO Last administered on 12/29/16 20:29 ; Start 12/22/16 at 09:00 Sodium Chloride 1,000 ml @ 999 mls/hr BOLUS ONCE IV ; Start 12/22/16 at 00:15; Stop 12/22/16 at 01:15; Status DC Norepinephrine Bitartrate (Levophed-Dextrose Drip) 250 ml @ 0 mls/hr TITRATE IV ; Start 12/22/16 at 00:15 Terbutaline Sulfate 1 mg 1 mg UNSCH PRN SQ For Extravasation; Start 12/22/16 at 00:15 Cefepime HCl/ Sodium Chloride (Maxipime Inj/NS Inj) 100 ml @ 200 mls/hr Q12H IV ; Start 12/22/16 at 12:00; Stop 12/22/16 at 12:00; Status DC Nystatin 1 applic 1 applic Q8HR TOPICAL Last administered on 12/30/16 06:16; Start 12/22/16 at 06:00 Vancomycin HCl 1000 mg/Sodium Chloride 250 ml @ 250 mls/hr ONCE ONCE IV Last administered on 12/22/16 10:12; Start 12/22/16 at 09:00; Stop 12/22/16 at 09:59; Status DC Piperacillin Sod/ Tazobactam Sod (Zosyn 3.375 Gm Premix) 50 ml @ 100 mls/hr Q6H IV Last administered on 12/28/16 04:49; Start 12/22/16 at 10:00; Stop at 10:01; Status DC Albuterol/ Ipratropium (Duoneb Neb) 1 ampule Q4HR NEB NEB Last administered on 12/26/16 08:12; Start 12/22/16 at 12:00; Stop 12/26/16 at 12:00; Status DC Albuterol/ Ipratropium 1 ampule 1 ampule Q2HR NEB PRN NEB SHORTNESS OF BREATH Last administered on 12/29/16 08:09; Start 12/22/16 at 09:00 Pharmacy Profile Note 0 ml @ 0 mls/hr UNSCH OTHER ; Start 12/22/16 at 12:00; Stop 12/27/16 at 09:52; Status DC Metronidazole 100 ml @ 100 mls/hr Q8H IV Last administered on 12/28/16 04:49; Start 12/22/16 at 13:00; Stop 12/28/16 at 10:01; Status DC Dextrose/Sodium Chloride 1,000 ml @ 50 mls/hr Q20H IV Last administered on 12/28 21:19; Start 12/22/16 at 13:15; Stop 12/29/16 at 12:43; Status DC Levetriacetam/ Sodium Chloride (Keppra Inj/NS Inj) 105 ml @ 420 mls/hr Q12HR IV Last administered on 12/29/16 20:29; Start 12/22/16 at 21:00 Pantoprazole Sodium (Protonix Inj) 40 mg Q24H IV PUSH Last administered on 21:28; Start 12/22/16 at 21:00; Stop 12/26/16 at 15:17; Status DC Aspirin 300 mg 300 mg ONCE ONCE RECTAL Last administered on 12/22/16 21:40; Start 12/22/16 at 20:30; Stop 12/22/16 at 20:38; Status DC Vancomycin HCl/ Sodium Chloride (Vancomycin Inj/ NS 250 ml Inj) 262.5 ml @ 262.5 mls/ hr ONCE ONCE IV Last administered on 12/23/16 15:38; Start 12/23/16 at 14:00; Stop 12/23/16 at 14:59; Status DC Hydrocortisone Sodium Succinate 100 mg 100 mg Q8HR IV PUSH Last administered on 12/27/16 13:45; Start 12/23/16 at 22:00; Stop 12/27/16 at 18:25; Status DC Vancomycin HCl 1250 mg/Sodium Chloride 262.5 ml @ 250 mls/hr ONCE ONCE IV Last administered on 12/24/16 09:45; Start 12/24/16 at 10:00; Stop 12/24/16 at 11: 02; Status DC Potassium Chloride 100 ml @ 50 mls/hr Q2H IV Last administered on 12/24/16 14: 17; Start 12/24/16 at 11:00; Stop 12/24/16 at 15:00; Status DC Magnesium Sulfate/ Dextrose 100 ml @ 100 mls/hr Q1H IV Last administered on 14:42; Start 12/24/16 at 10:30; Stop 12/24/16 at 12:34; Status DC Potassium Phosphate 15 mmol/ Sodium Chloride 155 ml @ 38.75 mls/ hr ONCE ONCE IV Last administered on 12/24/16 14:22; Start 12/24/16 at 12:00; Stop 12/24/16 at 15:59; Status DC Magnesium Sulfate/ Dextrose (Magnesium Sulfate 1 Gm Premix) 100 ml @ As Directed STK-MED ONCE .ROUTE ; Start 12/24/16 at 14:38; Stop 12/24/16 at 14:39; Status DC Haloperidol Lactate (Haldol Inj) 3 mg ONCE ONCE IM Last administered on 05:22; Start 12/25/16 at 05:15; Stop 12/25/16 at 05:16; Status DC Guaifenesin 600 mg 600 mg BID PO Last administered on 12/29/16 20:23; Start 12/25/16 at 09:00 Vancomycin HCl 1250 mg/Sodium Chloride 262.5 ml @ 250 mls/hr ONCE ONCE IV Last administered on 12/25/16 15:13; Start 12/25/16 at 11:00; Stop 12/25/16 at 12: 02; Status DC Potassium Phosphate/Sodium Chloride (Potassium Phosphate Inj/NS Inj) 155 ml @ 38.75 mls/ hr ONCE ONCE IV Last administered on 12/25/16 22:04; Start 12/25/16 at 20:00; Stop 12/25/16 at 23:59; Status DC Lorazepam 1 mg 1 mg ONCE ONCE IV PUSH Last administered on 12/25/16 21:54; Start 12/25/16 at 21:45; Stop 12/25/16 at 21:46; Status DC Vancomycin HCl/ Sodium Chloride (Vancomycin Inj/ NS 250 ml Inj) 262.5 ml @ 250 mls/hr Q24H IV Last administered on 12/26/16 14:48; Start 12/26/16 at 14:00; Stop 12/26/16 at 15:11; Status DC Miscellaneous Information SPECIFIC LAB TO BE DRAWN:VANCOMY... ONCE ONCE XX ; Start 12/28/16 at 13:45; Stop 12/28/16 at 13:46; Status Cancel Pantoprazole Sodium (Protonix) 40 mg DAILY PO Last administered on 12/29/16 08: 51; Start 12/27/16 at 09:00 Metoprolol Tartrate (Lopressor) 25 mg Q12HR PO ; Start 12/26/16 at 21:00; Stop at 21:00; Status DC Metoprolol Tartrate 12.5 mg 12.5 mg Q12HR PO Last administered on 12/26/16 21: 48; Start 12/26/16 at 21:00; Stop 12/27/16 at 07:43; Status DC Magnesium Sulfate/ Dextrose 100 ml @ 100 mls/hr Q1H IV ; Start 12/26/16 at 15:30 ; Stop 12/26/16 at 15:30; Status DC Potassium Phosphate 21 mmol/ Sodium Chloride 157 ml @ 38.75 mls/ hr ONCE ONCE IV Last administered on 12/26/16 16:30; Start 12/26/16 at 16:00; Stop 12/26/16 at 20:03; Status DC Potassium Chloride 100 ml @ 50 mls/hr Q2H IV Last administered on 12/26/16 23: 59; Start 12/26/16 at 16:00; Stop 12/26/16 at 19:59; Status DC Potassium Chloride (KCl 20 Meq Premix Inj) 100 ml @ As Directed STK-MED ONCE .ROUTE Last administered on 12/28/16 12:16; Start 12/26/16 at 22:57; Stop at 22:58; Status DC Clonidine (Catapres) 0.1 mg ONCE ONCE PO Last administered on 12/27/16 01:25; Start 12/27/16 at 01:15; Stop 12/27/16 at 01:16; Status DC Metoprolol Tartrate (Lopressor) 25 mg Q12HR PO Last administered on 12/29/16 20 :26; Start 12/27/16 at 09:00 Magnesium Oxide 800 mg 800 mg BID PO Last administered on 12/29/16 20:23; Start 12/27/16 at 09:00 Magnesium Sulfate/ Dextrose 100 ml @ 100 mls/hr Q1H IV Last administered on 09:48; Start 12/27/16 at 08:00; Stop 12/27/16 at 09:59; Status DC Potassium Chloride 100 ml @ 50 mls/hr Q2H IV Last administered on 12/27/16 10: 40; Start 12/27/16 at 09:00; Stop 12/27/16 at 12:59; Status DC Potassium Phosphate/Sodium Chloride (Potassium Phosphate Inj/NS Inj) 155 ml @ 38.75 mls/ hr ONCE ONCE IV Last administered on 12/27/16 12:52; Start 12/27/16 at 07:45; Stop 12/27/16 at 11:44; Status DC Clonidine (Catapres) 0.1 mg Q6H PRN PO SBP>160, DBP>90 Last administered on 12/28 00:44; Start 12/27/16 at 08:00 Prednisone (Deltasone) 10 mg BID PO Last administered on 12/29/16 08:51; Start 12/27/16 at 21:00; Stop 12/29/16 at 12:44; Status DC Potassium Chloride 40 meq 40 meq ONCE ONCE PO Last administered on 12/27/16 23 :20; Start 12/27/16 at 23:00; Stop 12/27/16 at 23:12; Status DC Potassium Chloride 100 ml @ 50 mls/hr Q2H IV Last administered on 12/28/16 01: 21; Start 12/27/16 at 23:00; Stop 12/28/16 at 02:59; Status DC Potassium Chloride 100 ml @ 50 mls/hr Q2H PRN IV For Potassium 2.8 - 3.2 mEq/L ; Start 12/27/16 at 23:00 Potassium Chloride (KCl 20 Meq Premix Inj) 100 ml @ 50 mls/hr Q2H PRN IV For Potassium 2.8 - 3.2 mEq/L Last administered on 12/28/16 09:01; Start 12/27/16 at 23:00 Potassium Chloride 40 meq 40 meq UNSCH PRN PO/TUBE For Potassium 3.3 - 3.5 mEq/ L; Start 12/27/16 at 23:00 Potassium Chloride 100 ml @ 25 mls/hr UNSCH PRN IV For Potassium 3.3 - 3.5 mEq /L; Start 12/27/16 at 23:00 Potassium Chloride 100 ml @ 50 mls/hr Q2H PRN IV For Potassium 3.3 - 3.5 mEq/L ; Start 12/27/16 at 23:00 Magnesium Sulfate/ Sodium Chloride (Magnesium Sulfate Inj/NS Inj) 100 ml @ 50 mls/hr UNSCH PRN IV For Magnesium 0.9 - 1.1 mg/dL; Start 12/27/16 at 23:00 Magnesium Oxide 800 mg 800 mg UNSCH PRN PO For Magnesium 1.2 - 1.6 mg/dL; Start 12/27/16 at 23:00 Magnesium Sulfate/ Sodium Chloride (Magnesium Sulfate Inj/NS Inj) 100 ml @ 50 mls/hr UNSCH PRN IV For Magnesium 1.2 - 1.6 mg/dL; Start 12/27/16 at 23:00 Potassium Phosphate 2000 mg 2,000 mg Q4H PRN PO For Phosphorus < 2.5 mg/dL Last administered on 12/28/16 02:34; Start 12/27/16 at 23:00 Sodium Phosphate/ Sodium Chloride (Sodium Phosphate Inj/NS 250 ml Inj) 250 ml @ 42 mls/hr UNSCH PRN IV For Phosphorus < 2.5 mg/dL; Start 12/27/16 at 23:00 Potassium Chloride (KCl 40 Meq/30 ml Liq) 40 meq UNSCH PRN PO/TUBE SEE LABEL COMMENTS; Start 12/27/16 at 23:00 Potassium Phosphate 2000 mg 2,000 mg UNSCH PRN PO/TUBE SEE LABEL COMMENTS; Start 12/27/16 at 23:00 Potassium Phosphate/Sodium Chloride (Potassium Phosphate Inj/NS 250 ml Inj) 260 ml @ 42 mls/hr UNSCH PRN IV SEE LABEL COMMENTS Last administered on 12/28/16 06:52; Start 12/27/16 at 23:00 Cholestyramine Resin (Questran 4 Gm Pkt) 4 gm Q8HR PO Last administered on 06:16; Start 12/28/16 at 08:45 Enalaprilat 1.25 mg 1.25 mg Q4H PRN IV PUSH KEEP SYSTOLIC BP 150 OR LESS; Start 12/28/16 at 09:00 Potassium Chloride 100 ml @ 50 mls/hr Q2H IV ; Start 12/28/16 at 08:45; Stop 12/28/16 at 12:44; Status DC Metronidazole 100 ml @ 100 mls/hr Q8H IV ; Start 12/28/16 at 09:00; Stop at 10:02; Status DC Magnesium Sulfate/ Dextrose 100 ml @ 100 mls/hr ONCE ONCE IV ; Start 12/28/16 at 09:00; Stop 12/28/16 at 09:59; Status DC Ceftriaxone Sodium/Sodium Chloride (Rocephin Inj/NS Inj) 100 ml @ 200 mls/hr Q24H IV Last administered on 12/29/16 11:46; Start 12/28/16 at 10:00 Metronidazole 500 mg 500 mg Q8HR PO Last administered on 12/30/16 06:16; Start 12/28/16 at 14:00 Potassium Chloride (KCl 20 Meq Premix Inj) 100 ml @ 50 mls/hr ONCE ONCE IV Last administered on 12/29/16 08:50; Start 12/29/16 at 07:45; Stop 12/29/16 at 09: 44; Status DC Prednisone (Deltasone) 10 mg DAILY PO ; Start 12/30/16 at 09:00 Alprazolam (Xanax) 0.25 mg Q6H PRN PO MILD ANXIETY Last administered on 20:22; Start 12/29/16 at 13:00 Fluoxetine HCl (PROzac) 20 mg BID PO Last administered on 12/29/16 20:24; Start 12/29/16 at 21:00 Diltiazem HCl (Cardizem Inj) 10 mg UNSCH X1 PRN IV if HR>120 sustained post SC Last administered on 12/30/16 02:58; Start 12/30/16 at 02:30; Stop 12/31/16 at 02 :29 A/P Assessment and Plan Acute respiratory failure with Hypoxemia -worsening clinically. -patient on rocephin per ID. -will get stat CXR and BNP. -based on results will determine course of action. Most likely will need to increase coverage for HAP. Pneumonia Bibasilar - Pulmonary and ID specialist following -on rocephin per ID. s/p zosyn. -continue antibiotics pending CXR. -continue Bronchodilator, Mucolytic and incentive spirometry. off steroid on 12/27. -Sputum growing Klebsiella Pneumonia. Left lower lobe lung nodule rule out malignancy -Per [employer] will need PET scan as outpatient. Acute Kidney Injury with chronic kidney disease III stable. -worsen. -continue to monitor. -strict I/O. -cautious with fluid due elevated BNP. -avoid nephrotoxins. Sepsis -due to PNA. -see treatment as above. CVA by history Hypertension Uncontrolled -on Clonidine and increased Metoprolol to 25 mg BID. Atrial Fibrillation -now in sinus rhythm with Beta blockers. -short episode most likely due to current illness. Dementia -Stable Diarrhea -C Diff negative, continue with Diarrhea, -on Questran. as per ID specialist continue Flagyl by mouth. Tachycardia -need to find under etiology in order to treat. DVT prophylaxis with Heparin. Dispo: Clinically worsened. Will need to evaluate further and keep patient in IMC. d/w patient and nurse at bedside. Mercedes Salgado MD Dec 30, 2016 08:23
[2016-12-30] MEDS ORDERED: predniSONE 10 MG TAB PO SCH (09:00)
[2016-12-30] MEDS: MAGNESIUM OXIDE 400 MG TAB PO SCH (09:13)
[2016-12-30] MEDS: guaiFENesin E.R. 600 MG TAB PO SCH (09:13)
[2016-12-30] MEDS: METOPROLOL TARTRATE 25 MG TAB PO SCH (09:13)
[2016-12-30] MEDS: FLUoxetine HCL 20 MG CAP PO SCH (09:13)
[2016-12-30] MEDS: PANTOPRAZOLE SOD 40 MG DELAYED RELEASE TAB PO SCH (09:14)
[2016-12-30] MEDS: FOLIC ACID 1 MG TAB PO SCH (09:14)
[2016-12-30] MEDS: LACTOBACILLUS ACIDOPHILUS 1 GM PACKET PO SCH ×3 (09:15→18:09)
[2016-12-30] MEDS: levETIRAcetam INJ 500 MG in SODIUM CHLORIDE 0.9% INJ 100 ML IV SCH (09:15)
[2016-12-30] MEDS ORDERED: FUROSEMIDE 40 MG/4 ML VIAL IV PUSH ONE (09:30)
[2016-12-30] MEDS: cefTRIAXone INJ 2,000 MG in SODIUM CHLORIDE 0.9% INJ 100 ML IV SCH (10:36)
[2016-12-30] MEDS: SODIUM CHLORIDE 0.9% FLUSH 5 ML FLUSH FLUSH SCH (10:39)
--- NOTE | 2016-12-30 10:46 | RADRPT ---
EXAM DATE/TIME: 12/30/2016 10:24 [facility] COMPARISON: CHEST SINGLE AP, December 29, 2016, 13:23. INDICATIONS : Shortness of breath. MEDICAL HISTORY : Hypertension. Deep venous thrombosis. Chronic obstructive pulmonary disease. cardiovascular disea se SURGICAL HISTORY : Hysterectomy. Appendectomy. Cholecystectomy. ENCOUNTER: Subsequent ACUITY: 1 week PAIN SCORE: 8/10 LOCATION: Bilateral upper chest FINDINGS: A single view of the chest demonstrates basilar airspace disease and pleural effusions, stable on the left and slightly increased on the right since December 29. No pneumothorax. Heart size upper limits nor mal. Scoliosis. CONCLUSION: 1. Bilateral airspace disease and pleural effusions as above. No pneumothorax. Virgilio Coats MD on December 30, 2016 at 10:42 Board Certified Radiologist. This report was verified electronically.
--- NOTE | 2016-12-30 11:47 | HHI.HCPN ---
Reason for visit a. To assist with evaluation and management of symptoms including: Debility , dysphagia and shortness of breath. b. To assist medical decision maker(s) with: better understanding of current medical conditions; weighing benefits/burdens of medical treatment options; making medical treatment decisions. . Subjective/Interval History Palliative care to follow-up for further clarifications of goals of care and given patient's worsening clinical condition. Patient yesterday tolerating O2 at 3 L via nasal cannula. Patient currently on 15 L nonrebreather mask, tachypneic with increased work of breathing. Expiratory crackles bilaterally. BNP jumped from 972 on 12/28/16 to 2601 today. Checks x-ray today showing bilateral airspace disease and pleural effusions, no pneumothorax. Peripheral edema. A. fib with RVR with heart rate in the 140s-150s. A. fib with RVR overnight, Cardizem was given. Engle catheter was replaced yesterday, moderate amount of dark urinary output in Engle bag. Patient afebrile, hypertensive with SBP in the [id number]. Laboratory today, WBC trending up to 20.7 today from 12.9 yesterday. Hgb 11.5, platelet count 265. Sodium 147, potassium 4.4, BUN/creatinine 19/1.42. Patient's overall mood improved since yesterday, she was found calm, pleasant and cooperative. Verbal but not always able to communicate needs secondary to intermittent confusion. She was started on Prozac yesterday. Xanax available as needed, one dose given overnight. Patient denies pain, nausea/vomiting, or any discomfort. Bedside nurse reported that patient ate all of her 3 meals yesterday and most of her breakfast this morning. 14:15. case discussed with DR. Rodríguez. CT of brain ordered to evaluate for CVA. Questionable right-sided facial drooping noted this afternoon. Patient on CHF, Lasix 40mg given. Cardiology has been consulted. . Family/friend interactions Telephone call to patient's son Anibal giving patient's worsening clinical condition. Left message in VM. . Advance Directives Living Will: Completed, but not made available Health Care Surrogate: Completed, but not made available Durable Power of Hop Weigher: Completed, but not made available Advance Directive Specifics Date completed: Pending documentation from family. . Health Care Surrogate(s): As per family, designated healthcare surrogate this patient's son Anibal Borja. . Documented care wishes: Pending copy of living will. . Significant change in goals: Alternative code/ACLS and defibrillation only. Continue current medical management and allow time for medical improvement. . Objective Vital Signs Date Time Temp Pulse Resp B/P Pulse Ox O2 Delivery O2 Flow Rate FiO2 12/30/16 08:23 100 Partial Rebreather 15.00 12/30/16 07:00 95 Nasal Cannula 6.00 12/30/16 06:00 141 12/30/16 04:00 98.5 114 22 123/80 95 12/30/16 04:00 114 12/30/16 03:20 95 Nasal Cannula 6.00 12/30/16 02:00 90 12/30/16 00:00 83 12/30/16 00:00 98.1 83 24 144/79 95 12/29/16 22:00 98 12/29/16 20:37 Nasal Cannula 3.00 12/29/16 20:00 89 12/29/16 20:00 97.6 89 24 151/81 96 12/29/16 19:00 92 Nasal Cannula 4.00 12/29/16 18:00 93 12/29/16 16:00 81 12/29/16 16:00 98.8 81 30 145/70 98 12/29/16 14:00 85 12/29/16 12:00 98.1 99 35 148/93 95 12/29/16 12:00 99 Intake & Output 12/30/16 12/30/16 07:00 19:00 Intake Total 1355 ml Output Total 100 ml Balance 1255 ml Intake Oral 480 ml IV Total 875 ml Output Urine Total 0 ml Stool Total 100 ml Bladder Scan Volume Amount 463 ml Physical Exam CONSTITUTIONAL/GENERAL: This is a frail, thin elderly female in no acute distress. Awake, alert. Following some commands. TUBES/LINES/DRAINS: PIV's, face mask, Engle catheter. SKIN: No jaundice, rashes, or lesions. Ecchymoses on upper extremities. No wounds seen anteriorly. Skin temperature appropriate. Not diaphoretic. HEAD: Atraumatic. Normocephalic. EYES: Pupils equal and round and reactive. No scleral icterus. No injection or drainage. ENT: Hearing appears normal. Nose without bleeding or purulent drainage. Mouth close. NECK: Trachea midline. Supple. CARDIOVASCULAR: A. fib with RVR, heart rate in the [id number]. Irregular rate and rhythm. +2 Edema to upper and lower extremities. RESPIRATORY/CHEST: Symmetric. Increased work of breathing noted. Expiratory crackles bilateral. O2 via nonrebreather mask at 15 L. GASTROINTESTINAL: Abdomen soft, round. Nontender. No guarding. Bowel sounds present. GENITOURINARY: Without palpable bladder distension. Engle catheter in place. MUSCULOSKELETAL: Extremities without clubbing, cyanosis. Bilateral hands contracture, moderate tremors NEUROLOGICAL: Awake, alert to self. Disoriented as to place and situation. Verbal but not always communicate needs secondary to confusion. Following some commands. PSYCHIATRIC: calm. . Diagnostic Tests Laboratory Laboratory Tests Test 12/27/16 12/28/16 12/28/16 12/28/16 20:28 05:44 12:01 15:52 Potassium Level 2.9 MEQ/L 3.0 MEQ/L 3.8 MEQ/L (3.5-5.1) (3.5-5.1) (3.5-5.1) Phosphorus Level 2.0 MG/DL 1.3 MG/DL 4.0 MG/DL (2.5-4.9) (2.5-4.9) (2.5-4.9) Magnesium Level 1.9 MG/DL 1.9 MG/DL (1.5-2.5) (1.5-2.5) Sodium Level 149 MEQ/L (136-145) Chloride Level 115 MEQ/L (98-107) Carbon Dioxide Level 22.7 MEQ/L (21.0-32.0) Anion Gap 11 MEQ/L (5-15) Blood Urea Nitrogen 13 MG/DL (7-18) Creatinine 1.28 MG/DL (0.50-1.00) Estimat Glomerular Filtration 40 ML/MIN (>89) Rate Random Glucose 172 MG/DL (74-106) Calcium Level 7.5 MG/DL (8.5-10.1) B-Type Natriuretic Peptide 978 PG/ML (0-100) Test 12/29/16 12/30/16 12/30/16 12/30/16 04:34 04:42 05:45 06:50 Potassium Level 3.6 MEQ/L 4.4 MEQ/L (3.5-5.1) (3.5-5.1) Phosphorus Level 2.8 MG/DL 2.6 MG/DL (2.5-4.9) (2.5-4.9) Sodium Level 147 MEQ/L (136-145) Chloride Level 114 MEQ/L (98-107) Carbon Dioxide Level 17.2 MEQ/L (21.0-32.0) Anion Gap 16 MEQ/L (5-15) Blood Urea Nitrogen 19 MG/DL (7-18) Creatinine 1.42 MG/DL (0.50-1.00) Estimat Glomerular Filtration 35 ML/MIN (>89) Rate Random Glucose 199 MG/DL (74-106) Calcium Level 8.6 MG/DL (8.5-10.1) Magnesium Level 2.1 MG/DL (1.5-2.5) White Blood Count 20.7 TH/MM3 (4.0-11.0) Red Blood Count 4.04 MIL/MM3 (4.00-5.30) Hemoglobin 11.5 GM/DL (11.6-15.3) Hematocrit 35.6 % (35.0-46.0) Mean Corpuscular Volume 88.1 FL (80.0-100.0) Mean Corpuscular Hemoglobin 28.5 PG (27.0-34.0) Mean Corpuscular Hemoglobin 32.4 % Concent (32.0-36.0) Red Cell Distribution Width 16.7 % (11.6-17.2) Platelet Count 265 TH/MM3 (150-450) Mean Platelet Volume 9.0 FL (7.0-11.0) Neutrophils (%) (Auto) 91.8 % (16.0-70.0) Lymphocytes (%) (Auto) 3.8 % (9.0-44.0) Monocytes (%) (Auto) 4.1 % (0.0-8.0) Eosinophils (%) (Auto) 0.0 % (0.0-4.0) Basophils (%) (Auto) 0.3 % (0.0-2.0) Neutrophils # (Auto) 19.0 TH/MM3 (1.8-7.7) Lymphocytes # (Auto) 0.8 TH/MM3 (1.0-4.8) Monocytes # (Auto) 0.8 TH/MM3 (0-0.9) Eosinophils # (Auto) 0.0 TH/MM3 (0-0.4) Basophils # (Auto) 0.1 TH/MM3 (0-0.2) CBC Comment AUTO DIFF Differential Total Cells 100 Counted Neutrophils % (Manual) 88 % (16-70) Band Neutrophils % 2 % (0-6) Lymphocytes % 6 % (9-44) Monocytes % 3 % (0-8) Neutrophils # (Manual) 18.8 TH/MM3 (1.8-7.7) Myelocytes 1 % (0-0) Differential Comment FINAL DIFF MANUAL Platelet Estimate NORMAL (NORMAL) Platelet Morphology Comment NORMAL (NORMAL) [place] Cells 1+ (NORMAL) B-Type Natriuretic Peptide 2601 PG/ML (0-100) Prothrombin Time 12.6 SEC (9.8-11.6) Prothromb Time International 1.1 RATIO Ratio Result Diagram: 12/30/16 0545 12/30/16 0442 Imaging Last 24 hours Impressions Chest X-Ray 12/30/16 0000 Signed Impressions: Service Date/Time: December 10:24 - CONCLUSION: 1. Bilateral airspace disease and pleural effusions as above. No pneumothorax. Virgilio Coats MD Assessment and Plan Disease Oriented Problem List: (1) Respiratory failure, acute (2) Hypotension (3) Pneumonia (4) CKD (chronic kidney disease) stage 3, GFR 30-59 ml/min (5) Failure to thrive in adult (6) Dementia Symptom Scale: (1) Shortness of breath 0-10 Scale: Unable to quantify Comment: secondary to pna, CHF and likely malignancy. (2) Debility 0-10 Scale: Unable to quantify Comment: Progressive since February 2016. Depending on all ADLs. (3) Dysphagia 0-10 Scale: Unable to quantify Comment: Secondary to advanced dementia. Pureed diet and thickened liquids. Pertinent Non-Medical Issues Psychosocial: , has 5 children. Spiritual: Hinduism. Legal: Living will completed. Pending copy. Ethical issues impacting care: No ethical issues have been identified. . Important Contacts Donell Borja [phone]. [facility] -Son Anibal Borja [phone]. . Prognosis Mrs. Borja is an 86-year-old female with a past medical history of right femur fracture secondary to mechanical fall s/p intramedullary nail fixation on February complicated by migration of screw and infection for which she underwent removal of hardware and intramedullary annalise fixation in April 27, 2016. All other medical history includes dementia, CAD status post stents, CHF hypertension, chronic kidney disease stage III, anxiety/depression, dysphagia with PEG tube placement in May 2016. Patient has been between acute hospitalizations, acute rehabilitation and correction facility since February 2016. Acute decline and cognitive and functional status. Now depending on all ADLs. CT of chest on this admission reveals lung nodule highly suggestive of malignancy. Patient's overall prognosis is poor given her age, progressive decline in functional and cognitive status, chronic comorbidities, acute events, frequent hospitalizations and high likelihood of lung malignancy. Patient at very high risk for further decline, complications and . . Code Status: Alternative Code Plan * CODE STATUS: ALT code. ACLS and shock only. NO to intubation, NO mech ventilation, NO chest compressions. Upon discharge, son elects for patient to be full DNR/DNI. * Community DNR completed. * MEDICAL DECISION-MAKING: Patient not decisional secondary to clinical condition, dementia. Family reports that son Anibal Borja is designated healthcare surrogate. * GOALS OF CARE: 12/30/16 -Continue current medical management and allow time for clinical improvement. Discharge goal remains unchanged, rehab for physical strengthening. If clinical condition worsen or unable to tolerate rehab, family to transition patient's to comfort-directed care with hospice but for now, family electing to continue medical management and allow time for medical improvement. * SYMPTOMS: == Shortness of breath, multifactorial -secondary to pneumonia, CHF and probable lung malignancy. Worsening today, back on nonrebreather mask at 15 L. Pulmonology following. == Debility, progressive since February 2016. Likely to worsen. Goal to DC to rehab == Dysphagia, secondary to advanced dementia and CVA, history of PEG tube. On pured diet and honey thickened liquids. Patient presents with failure to thrive, albumin 2.6. Currently eating most of her meals. * Case has been discussed with Dr. Rodríguez and bedside RN. * Palliative care contact information has been provided to family. * Palliative care will continue to follow-up with this hospitalizations for clarifications of goals of care as clinical course evolves. . Time Spent Total Floor Time (mins): 33 (Total time to include review and summarization of medical records, physical exam, telephone call to patient's son, and case discussion with and bedside RN.) >50% Counseling/Coord of Care: Yes Attestation To help prompt me to consider important information that might be impacting today's encounter and assessment, information from prior notes written by myself or my colleagues may have been "brought forward" into today's note. My signature on this note, however, is an attestation that I personally performed the exam, history, and/or decision-making noted today, and, unless otherwise indicated, the interactions with patient, family, and staff as well as the review of records all occurred today. I also attest that the listed assessment and stated plan reflect my best clinical judgment today based on the combination of historical information, prior notes, and today's exam/ interactions. When time spent is documented, it refers only to time spent today by the signer, or if indicated, combined time spent today by collaborating physician/nurse practitioner. Carol Gonzalez Dec 30, 2016 11:46
--- NOTE | 2016-12-30 13:35 | HHI.IDPN ---
Subjective Subjective Remarks Notes reviewed D/W RN Looks tired and dyspneic Back on NRB mask Sounds very congested No fever Engle removed yesterday, and reinserted today BNP from 900 now 2600 CXR with mykel effusions and consolidation Antibiotics Rocephin Flagyl Lines PIV Past Medical History Hypertension Depression Anxiety Chronic kidney disease CVA Recurrent C. 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 Past Surgical History Hip surgery 02/2016 with revision, corticectomy Spinal cord stimulator Cardiac stent Left knee surgery, looks like previous knee arthroplasty. Allergies: Coded Allergies: Lactose (Verified Allergy, Severe, CRAMPS, DIARRHEA, 06/07/16) Objective . Vital Signs Date Time Temp Pulse Resp B/P Pulse Ox O2 Delivery O2 Flow Rate FiO2 12/30/16 10:00 118 12/30/16 08:23 100 Partial Rebreather 15.00 12/30/16 08:00 98.7 118 29 120/70 95 12/30/16 08:00 118 12/30/16 07:00 95 Nasal Cannula 6.00 12/30/16 06:00 141 12/30/16 04:00 98.5 114 22 123/80 95 12/30/16 04:00 114 12/30/16 03:20 95 Nasal Cannula 6.00 12/30/16 02:00 90 12/30/16 00:00 83 12/30/16 00:00 98.1 83 24 144/79 95 12/29/16 22:00 98 12/29/16 20:37 Nasal Cannula 3.00 12/29/16 20:00 89 12/29/16 20:00 97.6 89 24 151/81 96 12/29/16 19:00 92 Nasal Cannula 4.00 12/29/16 18:00 93 12/29/16 16:00 81 12/29/16 16:00 98.8 81 30 145/70 98 12/29/16 14:00 85 12/29/16 12/29/16 12/30/16 15:00 23:00 07:00 Intake Total 1093 ml 715 ml 640 ml Output Total 150 ml 50 ml 50 ml Balance 943 ml 665 ml 590 ml Intake Oral 360 ml 240 ml 240 ml IV Total 733 ml 475 ml 400 ml Output Urine Total 100 ml 0 ml 0 ml Stool Total 50 ml 50 ml 50 ml Bladder Scan Volume Amount 463 ml . Laboratory Tests Test 12/30/16 05:45 White Blood Count 20.7 TH/MM3 Red Blood Count 4.04 MIL/MM3 Hemoglobin 11.5 GM/DL Hematocrit 35.6 % Mean Corpuscular Volume 88.1 FL Mean Corpuscular Hemoglobin 28.5 PG Mean Corpuscular Hemoglobin 32.4 % Concent Red Cell Distribution Width 16.7 % Platelet Count 265 TH/MM3 Mean Platelet Volume 9.0 FL Neutrophils (%) (Auto) 91.8 % Lymphocytes (%) (Auto) 3.8 % Monocytes (%) (Auto) 4.1 % Eosinophils (%) (Auto) 0.0 % Basophils (%) (Auto) 0.3 % Neutrophils # (Auto) 19.0 TH/MM3 Lymphocytes # (Auto) 0.8 TH/MM3 Monocytes # (Auto) 0.8 TH/MM3 Eosinophils # (Auto) 0.0 TH/MM3 Basophils # (Auto) 0.1 TH/MM3 CBC Comment AUTO DIFF Differential Total Cells 100 Counted Neutrophils % (Manual) 88 % Band Neutrophils % 2 % Lymphocytes % 6 % Monocytes % 3 % Neutrophils # (Manual) 18.8 TH/MM3 Myelocytes 1 % Differential Comment FINAL DIFF MANUAL Platelet Estimate NORMAL Platelet Morphology Comment NORMAL [place] Cells 1+ Laboratory Tests Test 12/28/16 12/29/16 12/30/16 12/30/16 15:52 04:34 04:42 05:45 Potassium Level 3.8 MEQ/L 3.6 MEQ/L 4.4 MEQ/L Phosphorus Level 4.0 MG/DL 2.8 MG/DL 2.6 MG/DL Sodium Level 147 MEQ/L Chloride Level 114 MEQ/L Carbon Dioxide Level 17.2 MEQ/L Anion Gap 16 MEQ/L Blood Urea Nitrogen 19 MG/DL Creatinine 1.42 MG/DL Estimat Glomerular Filtration 35 ML/MIN Rate Random Glucose 199 MG/DL Calcium Level 8.6 MG/DL Magnesium Level 2.1 MG/DL B-Type Natriuretic Peptide 2601 PG/ML Imaging Chest X-Ray 12/30/16 0000 Signed Impressions: Service Date/Time: December 10:24 - CONCLUSION: 1. Bilateral airspace disease and pleural effusions as above. No pneumothorax. Virgilio Coats MD Chest X-Ray 12/29/16 0000 Signed Impressions: Service Date/Time: Thursday, December 29, 2016 13:23 - CONCLUSION: Right greater than left consolidation and pleural effusions as above, not significantly changed. Bo Rosa MD Chest X-Ray 12/27/16 0800 Signed Impressions: Service Date/Time: Tuesday, December 27, 2016 07:54 - CONCLUSION: 1. Increased airspace consolidation throughout the right lung with persistent right basilar pleural-parenchymal opacity likely representing pleural effusion with associated volume loss and/or consolidation. 2. Increased left basilar opacity likely representing airspace consolidation, small pleural effusion, and atelectasis. Bo Cordova MD Renal Ultrasound 12/22/16 0000 Signed Impressions: Service Date/Time: Thursday, December 22, 2016 18:16 - CONCLUSION: No evidence of hydronephrosis. Bilateral renal cysts. Yuri Garsia MD Chest CT 12/21/16 0000 Signed Impressions: Service Date/Time: Wednesday, December 21, 2016 18:27 - CONCLUSION: 14 mm spiculated nodule left lower lobe characteristic of malignancy until proven otherwise. Bilateral lower lobe consolidating airspace disease characteristic of pneumonia. Coronary artery stent. Yuri Garsia MD Physical Exam GENERAL: Awake, not as perky as previous days, dyspneic, on NRB SKIN: Cool and dry. No generalized rash. HEAD: Atraumatic. Normocephalic. No temporal or scalp tenderness. EYES: Pupils equal round and reactive. No scleral icterus. No injection or drainage. ENT: Nose without bleeding, or purulent drainage. Dry oral mucosa. NECK: Supple, nontender, no meningeal signs. CARDIOVASCULAR: Irregular rate and rhythm. RESPIRATORY: Mykel coarse rhonchi, with wheezing on L side, decrease BS at bases GASTROINTESTINAL: Abdomen soft, not tender, nondistended. No guarding. MUSCULOSKELETAL: Extremities without clubbing, cyanosis, or edema. No calf tenderness. NEUROLOGICAL: Non-focal PSYCH: cooperative LINE: PIV with no evidence of infection Assessment & Plan Remarks IMPRESSION Mykel infiltrates, with fluid, volume loss - PNA, C/S Klebsiella - worsening resp status due to fluid Diarrhea, C diff negative - previous Hx C diff last year April and 2015 RECOMMENDATION Continue Rocephin Continue Flagyl Continue Lactinex ABG Monitor progress Pulmonary following May need BIPAP D/W RN I will be OOT 12/31-01/04 Other ID covering in my absence Malathi Fitzgerald MD Dec 30, 2016 13:35
[2016-12-30 14:02] LABS: BLOOD GAS BASE EXCESS -5.9 mmol/L (-2-2); BLOOD GAS CARBOXYHEMOGLOBIN 0.8 % (0-4); BLOOD GAS HCO3 19 mmol/L (22-26); BLOOD GAS METHEMOGLOBIN 1.2 % (0-2); BLOOD GAS O2 HGB SATURATION 97 % (90-100); BLOOD GAS OXYGEN CONTENT 14.7 Vol % (12.0-20.0); BLOOD GAS PCO2 34 mmHg (38-42); BLOOD GAS PO2 222 mmHg (61-120); BLOOD GAS TOTAL HGB 10.4 G/DL (12.0-16.0); CRITICAL VALUE NO; DRAW SITE RT RADIAL; NUMBER OF ARTERIAL PUNCTURES 2; OXYGEN DEVICE PARTIAL REBREATHER; STAT YES; TEMP CORR TO 98.6; ULNAR PULSE PRESENT
[2016-12-30] MEDS ORDERED: CARVEDILOL 6.25 MG TAB PO ONE (15:00)
--- NOTE | 2016-12-30 17:09 | MB ---
cc: MITZY FORD M.D. DATE OF CONSULTATION 12/30/16 REASON FOR CONSULTATION Paroxysmal atrial fibrillation. HISTORY OF PRESENT ILLNESS Ms. Borja is an 86-year-old white female well-known to me with history of paroxysmal atrial fibrillation, heart failure with preserved ejection fraction, ASHD with angina pectoris functional class II and hypertensive heart disease. The patient apparently was admitted to the hospital on December 21 after presenting to the emergency room with complaints of progressive shortness of breath over the prior five days. She is being treated with intravenous antibiotics but has had slow progress. She is currently sitting up in bed with a partial non-rebreather mask in mild to moderate respiratory distress. According to the nursing staff, she has been in and out of atrial fibrillation at times with a rapid ventricular response of about 150 beats per minute. She received a couple of boluses of intravenous Cardizem earlier today that seemed to help. She had been taking her medication as directed at home. Her son was in to see here this morning and had not been happy with her care up until now and requested a change in her hospitalist which has been complied with. The patient denies any chest discomfort. She is unable to speak. She appears to have an expressive aphasia. She is able to follow commands and appears to understand questioning. MEDICATIONS current 1. Prednisone 10 mg p.o. daily. 2. She received a couple of doses of intravenous Cardizem 10 mg and 20 mg IV this morning. 3. Metronidazole 500 mg q.8 h. 4. Xanax 0.25 mg q 6 hours p.r.n. 5. Prozac 20 mg b.i.d. 6. Vasotec 1.25 mg IV q.4 h p.r.n. 7. Ceftriaxone 2 grams q.24 h IV 8. Intravenous potassium supplements and magnesium supplements 9. Magnesium oxide 800 mg p.o. 10. Protonix 40 mg p.o. daily. 11. Clonidine 0.1 mg p.r.n. 12. Aspirin 325 mg daily. 13. Heparin 5000 units subcu q. 8 hours. 14. Pravachol 40 mg at bedtime. Looking back at her home medications from the most recent list he indicates that prior to admission she was taking - 1. Zocor 20 mg p.o. daily, 2. Fish oil supplements daily. 3. Hydrochlorothiazide 50 mg daily. 4. Amlodipine 5 mg daily 5. Valsartan 160 mg b.i.d. 6. Coreg 6.25 mg b.i.d. 7. Fluoxetine 20 mg daily, 8. Nortriptyline 10 mg daily. 9. Diazepam 2 mg p.r.n. 10. Hydrocodone/APAP 10/125 p.r.n. 11. Quetiapine fumarate 12.5 mg daily 12. Xarelto 15 mg p.o. daily. ALLERGIES None known. PAST MEDICAL HISTORY 1. Longstanding hypertension, 2. ASHD, 3. Angina, 4. Prior TIA, 5. Seizure disorder, 6. Meningioma, 7. Hyperlipidemia, 8. Chronic kidney disease, No history of myocardial infarction, thyroid or liver disease. PAST SURGICAL HISTORY 1. Drug-eluting stent implant to the left anterior descending artery in 2003 here at [place]. 2. Meningioma removed 1993 at [facility] in [place]. 3. Neurostimulator implant 2007. FAMILY HISTORY Noncontributory. SOCIAL HISTORY The patient was a cigarette smoker for 15 years, one half pack a day, quit in 1956. Denies alcohol intake. Lives at home with her son. REVIEW OF SYSTEMS Unobtainable at this time. PHYSICAL EXAMINATION GENERAL: An elderly, weak appearing and short of breath white female sitting up in bed with a partial non-rebreather mask. HEENT: Head is normocephalic and atraumatic. Pupils equal, round and react to light. Sclerae anicteric. Extraocular movements intact. NECK: Neck is supple. There is no adenopathy or jugular venous distension at 90 degrees. Carotid upstrokes normal. No bruits. Thyroid exam normal. LUNGS: Decreased breath sounds bilaterally with scattered wheezes and rhonchi. HEART: PMI not displaced. S1-S2 are normal. There are no murmurs, gallops, clicks or rubs. ABDOMEN: Bowel sounds present, soft, nontender. No hepatosplenomegaly, masses or bruits. EXTREMITIES: no cyanosis, clubbing or edema. Perfusion is adequate in upper and lower extremities. There are no femoral bruits. NEUROLOGIC: The patient is aphasic. There is a right-sided facial weakness noted. She is able to move all upper extremities and strength is good. CARDIOLOGY STUDIES EKG from admission on December 21 shows a sinus rhythm rate 68, first-degree AV block, nonspecific T-wave abnormalities and low voltage. Abnormal EKG. Telemetry strips at this time shows sinus rhythm, but earlier today showed an atrial fibrillation with a rapid ventricular response. An echocardiogram was performed on December 22, 2016 - left ventricular ejection fraction 60%. Mitral annular calcification. Pulmonary artery pressure 34 mmHg. IMAGING STUDIES Chest x-ray from this morning shows bilateral air space disease and pleural effusions as above. No pneumothorax. LABORATORY DATA Labs from this morning - CBC - white count 20.7, hemoglobin 11.5, hematocrit 35.6, platelet count 265,000. She has 91.8% neutrophils, 3.8% lymphocytes. Coags are normal. Chemistries - sodium 147, potassium 4.4, chloride 114, CO2 17.2, BUN 19, creatinine 1.42, glucose 199, magnesium 2.6. BNP 2601. IMPRESSION 1. Bilateral pneumonia and hypoxemia. 2. Paroxysmal atrial fibrillation with rapid ventricular response. 3. Hypertensive heart disease. 4. ASHD status post remote drug-eluting stent implant to left anterior descending artery. 5. Normal left ventricular systolic function. 6. History of heart failure with preserved ejection fraction. 7. History of meningioma resection. RECOMMENDATIONS I had a discussion on the phone with the patient's son about current condition as well as Dr. Salgado, her hospitalist. I cannot be entirely sure, but it appears that her aphasia certainly may new. Her son feels that when she is ill she has more trouble expressing herself verbally, but I recommend we go ahead with a CT scan without contrast just to exclude the possibility of intracranial hemorrhage and then if that is negative get her restarted on her oral anticoagulation therapy with Xarelto. She is currently receiving some subcutaneous heparin for DVT prophylaxis. I have discontinue her metoprolol and restarted her carvedilol 6.25 mg p.o. b.i.d. We can continue to give her intravenous boluses of Cardizem if she has recurrent atrial fibrillation Fib with RVR. Hopefully, once her underlying lung disease is improved her paroxysmal atrial arrhythmias will also improve. Continue full supportive therapy. I see palliative care is involved. I did discuss the case with them who have also discussed care with the patient's son who at this time wishes continued maximal care approach. Her prognosis is guarded at this time. I will follow her with you with any further recommendations as necessary. Thank you for allowing me to participate in the care of this patient. MD DEANGELO Zamarripa/ /3:10 PM /4:41 PM
[2016-12-30] MEDS ORDERED: FUROSEMIDE 20 MG/2 ML VIAL IV PUSH SCH (18:00)
[2016-12-30] MEDS: ALPRAZolam 0.25 MG TAB PO PRN (18:09)
--- NOTE | 2016-12-30 18:26 | HHI.PR ---
Subjective Remarks Was in Atrial Fib. On a NRB mask now. On Cardizem CXR shows basal infiltrates. Objective Vital Signs Date Time Temp Pulse Resp B/P Pulse Ox O2 Delivery O2 Flow Rate FiO2 12/30/16 16:00 83 12/30/16 14:00 78 12/30/16 12:00 82 12/30/16 12:00 98.9 82 28 128/78 100 12/30/16 10:00 118 12/30/16 08:23 100 Partial Rebreather 15.00 12/30/16 08:00 98.7 118 29 120/70 95 12/30/16 08:00 118 12/30/16 07:00 95 Nasal Cannula 6.00 12/30/16 06:00 141 12/30/16 04:00 98.5 114 22 123/80 95 12/30/16 04:00 114 12/30/16 03:20 95 Nasal Cannula 6.00 12/30/16 02:00 90 12/30/16 00:00 83 12/30/16 00:00 98.1 83 24 144/79 95 12/29/16 22:00 98 12/29/16 20:37 Nasal Cannula 3.00 12/29/16 20:00 89 12/29/16 20:00 97.6 89 24 151/81 96 12/29/16 19:00 92 Nasal Cannula 4.00 I/O 12/29/16 12/29/16 12/29/16 12/30/16 12/30/16 12/30/16 07:00 15:00 23:00 07:00 15:00 23:00 Intake Total 409 ml 1093 ml 715 ml 640 ml 566 ml Output Total 500 ml 150 ml 50 ml 50 ml 300 ml Balance -91 ml 943 ml 665 ml 590 ml 266 ml Intake Oral 250 ml 360 ml 240 ml 240 ml 200 ml IV Total 159 ml 733 ml 475 ml 400 ml 366 ml Output Urine Total 100 ml 100 ml 0 ml 0 ml 300 ml Stool Total 400 ml 50 ml 50 ml 50 ml 0 ml Bladder Scan Volume Amount 463 ml Result Diagram: 12/30/16 0545 12/30/16 0442 Procedures No procedures. Objective Remarks GENERAL: This elderly, averagely built, white female is alert. HEENT: Head normocephalic. Pupils reactive. Tongue is moist.. CHEST: Reveals occ basilar crackles.wheeze heard. HEART: The heart sounds are irregular, S1 and S2 with no murmur. ABDOMEN: Abdomen is soft, protuberant. No mass. No organomegaly or tenderness. EXTREMITIES: Revealed no edema . Neurologically confused and does move all extremities. RECTAL: Exam is deferred. SKIN: Skin was warm. Assessment and Plan Assessment and Plan IMPRESSION 1. Bibasilar pneumonia with hypoxemia. 2. Probable aspiration pneumonia. 3. Left lower lobe lung nodule, rule out malignancy. 4. Acute kidney injury with chronic kidney disease. 5. Sepsis. 6. History of CVA. 7. History of hypertension and coronary artery disease. 8. Respiratory Failure 9. Atrial Fibrillation Plan: 1. Continue antibiotics per ID 2. Wean O2 to 50 % ventimask 3. Transfer to tele 4. Continue Nebs qid , Duoneb. 5. Chest X ray in am 6. Xanax .25 mg tid prn for anxiety 7. Cardizem Drip. 8. BMP in am 9. PET CT as OP for lung nodule Allison Schneider MD Dec 30, 2016 18:26
--- NOTE | 2016-12-30 18:44 | RADRPT ---
EXAM DATE/TIME: 12/30/2016 18:35 [facility] COMPARISON: CT BRAIN W/O CONTRAST, June 07, 2016, 7:01. INDICATIONS : Altered mental status; possible CVA. RADIATION DOSE: 44.66 CTDIvol (mGy) MEDICAL HISTORY : Dementia. Cerebrovascular disease. Hypertension.DVT SURGICAL HISTORY : Craniotomy. ENCOUNTER: Initial ACUITY: 1 day PAIN SCALE: 0/10 LOCATION: cranial TECHNIQUE: Multiple contiguous axial images were obtained of the head. Using automated exposure control and adj ustment of the mA and/or kV according to patient size, radiation dose was kept as low as reasonably a chievable to obtain optimal diagnostic quality images. FINDINGS: There is no intracranial hemorrhage or hematoma. No mass, mass effect or midline shift demonstrated. No evidence of an acute ischemic event. Large area of encephalomalacia again seen of the right frontal lobe. Patient has had craniotomy. There is chronic low-attenuation in the periventricular white matter and atrophy of both frontal lob es. All this is unchanged. CONCLUSION: Chronic findings as above. No acute intracranial abnormality demonstrated. Bo Rosa MD on December 30, 2016 at 18:41 Board Certified Radiologist. This report was verified electronically.
[2016-12-30] MEDS ORDERED: LIDOCAINE HCL 2% 100 MG/5 ML SYRINGE IV PUSH ONE (19:58)
[2016-12-30] MEDS ORDERED: AMIODARONE HCL 150 MG/3 ML VIAL IV ONE (19:58)
[2016-12-30] MEDS ORDERED: EPINEPHrine HCL (1:10,000) 1 MG/10 ML SYRINGE IV ONE (19:58)
--- NOTE | 2016-12-30 20:10 | DEATH SUM ---
Summary Demographics Date Pronounced : Dec 30, 2016 Time Of : 19:59 Pronounced By: Josias Drew M.D. Preliminary Cause of : Cardiac arrest (V-tach -> v-fib) Everardo Drew MD Dec 30, 2016 20:10
--- NOTE | 2016-12-30 20:14 | HHI.CCPN ---
Subjective Remarks/Hospital Course The patient is an 86-year-old female with a past medical history of C. diff x3, coronary artery disease with previous stent placement, hypertension, anxiety, depression, chronic kidney disease and CVA. She was admitted to [facility] under hospitalist service last night for hypoxemia and acute renal failure with a creatinine of 2.61 on presentation and pneumonia. The patient had a CT scan of the chest last night which showed a 14 mm spiculated nodule left lower lobe in addition to bilateral lower lobe consolidating airspace disease characteristics of pneumonia. The patient was treated with IV hydration, however, she was not placed on antibiotics initially. When she was admitted earlier this morning, the patient became hypotensive with a blood pressure of 88/40 and she was subsequently given a one liter bolus of normal saline and transferred to [facility] for closer observation. In the ICU, ABG was performed on a non-rebreather mask which showed a pH of 7.25, CO2 46, pAO2 107, bicarb 19 and saturation of 95%. Her laboratory data from this morning showed improvements of her renal function with a creatinine level of 2.0 from 2.6. She was started on antibiotics earlier today. When seen, the patient remains on a non-rebreather mask and her current blood pressure is 98/53 with a MAP of 72. Most of the history was obtained from reviewing the medical records as the patient is a poor historian. 12/23 Patient is on high flow oxygen with good sats. Renal function improving with Cr: 1.66 from 2.04. Afebrile. 12/30: Sudden V-tach cardiac arrest. I was in the [facility] already. Prompt CPR and ACLS instituted. Patient is alternative code status, no intubation. After 4 shocks, son at bedside requested that we stop all CPR and allow her to a natural . Pronounced at 1959 hours of cardiac standstill. Josias Drew M.D. [employer] Systems Administrator Objective Vital Signs Date Time Temp Pulse Resp B/P Pulse Ox O2 Delivery O2 Flow Rate FiO2 12/30/16 18:00 79 12/30/16 16:00 97.7 30 159/83 97 12/30/16 08:23 Partial Rebreather 15.00 Intake and Output 12/29/16 12/29/16 12/30/16 08:00 16:00 00:00 Intake Total 409 ml 1093 ml 715 ml Output Total 500 ml 150 ml 50 ml Balance -91 ml 943 ml 665 ml Result Diagram: 12/30/16 0545 12/30/16 0442 Other Results Laboratory Tests Test 12/30/16 13:55 Blood Gas Puncture Site RT RADIAL Blood Gas Patient Temperature 98.6 Blood Gas HCO3 19 mmol/L (22-26) Blood Gas Base Excess -5.9 mmol/L (-2-2) Blood Gas Oxygen Saturation 97 % (90-100) Arterial Blood pH 7.36 (7.380-7.420) Arterial Blood Partial 34 mmHg (38-42) Pressure CO2 Arterial Blood Partial 222 mmHg Pressure O2 (61-120) Arterial Blood Oxygen Content 14.7 Vol % (12.0-20.0) Arterial Blood 0.8 % (0-4) Carboxyhemoglobin Arterial Blood Methemoglobin 1.2 % (0-2) Blood Gas Hemoglobin 10.4 G/DL (12.0-16.0) Oxygen Delivery Device PARTIAL REBREATHER Imaging Last Impressions Renal Ultrasound 12/22/16 0000 Signed Impressions: Service Date/Time: Thursday, December 22, 2016 18:16 - CONCLUSION: No evidence of hydronephrosis. Bilateral renal cysts. Yuri Garsia MD Chest X-Ray 12/22/16 0000 Signed Impressions: Service Date/Time: Thursday, December 22, 2016 11:55 - CONCLUSION: Interim improvement with better aeration. Alvaro Jones MD FACR Chest CT 12/21/16 0000 Signed Impressions: Service Date/Time: Wednesday, December 21, 2016 18:27 - CONCLUSION: 14 mm spiculated nodule left lower lobe characteristic of malignancy until proven otherwise. Bilateral lower lobe consolidating airspace disease characteristic of pneumonia. Coronary artery stent. Yuri Garsia MD Objective Remarks GENERAL: Patient is 86 yo lying in be din mild resp distress SKIN: Warm and dry. HEAD: Normocephalic. EYES: No scleral icterus. No injection or drainage. NECK: Supple, trachea midline. No JVD or lymphadenopathy. CARDIOVASCULAR: Regular rate and rhythm without murmurs, gallops, or rubs. RESPIRATORY: Breath sounds equal bilaterally. No accessory muscle use. GASTROINTESTINAL: Abdomen soft, non-tender, nondistended. MUSCULOSKELETAL: No cyanosis, or edema. Neuro: No focal sensory deficits. A/P Assessment and Plan 1. Acute hypoxemic and hypercapnic respiratory failure. 2. Bilateral lower lobe consolidating airspace disease c/w pneumonia. 3. A 14 mm spiculated nodule left lower lobe need to rule out malignancy. 4. Acute kidney injury...improving 5. Mild Leukocytosis 6. Anemia 7. History of C. diff 8. History of hypertension. 9. Coronary artery disease with previous stent placement. 10. History of CVA, seizures Plan Neuro: Monitor neuro status and avoid sedatives. Continue with Keppra 500mg IV Q12 ( hx seizures) Pulm: Wean down oxygen as tolerated and maintain sats > 92%. Bronchodilators, Aspiration precautions. Pulm is following- Dr. Schneider CV: Monitor HR and BP and maintain MAP > 65 mmHg. Lactic acid level: 0.7. Echo showed EF 60% : Monitor renal function I's and O's and avoid nephrotoxins. Renal function improving with Cr: 1.66 today from 2.0 Decrease IVF D5NS@50ml/hr GI: On Puree with homey thick liquids per speech ID: Continue with abx ( Zosyn, Flagyl)monitor for signs of infections ( Fever, WBC) Nasal washing negative for influenza. check strep pneumonia and Legionella urinary antigen. Endo: SSI with Accu-Chek's if needed for glycemic control. GI prophylaxis with Protonix and DVT prophylaxis with SCD's and heparin subcu. Palliative care is following. Code status: No code DNR Will sign off and transfer care to [facility] Level 2 Everardo Drew MD Dec 30, 2016 20:14
[2016-12-30] MEDS ORDERED: CARVEDILOL 6.25 MG TAB PO SCH (21:00)
--- NOTE | 2017-03-06 22:15 | HHI.DS ---
Discharge Summary Admission Date Dec 21, 2016 at 17:39 Discharge Date: Dec 30, 2016 Admitting Diagnosis RASHEL (1) Respiratory failure, acute ICD Code: J96.00 Diagnosis: Principal (2) Pneumonia ICD Code: J18.9 Diagnosis: Principal (3) Dementia ICD Code: F03.90 Diagnosis: Secondary (4) Acute renal failure superimposed on stage 3 chronic kidney disease ICD Code: N17.9 Diagnosis: Principal (5) Failure to thrive in adult ICD Code: R62.7 Diagnosis: Secondary Procedures see hospital course Brief History - From Admission This is a 86 female patient who is currently alert and oriented to person and place only with limited ability to provide information therefore information gathered from patient as well as prior computerized charting. Patient's past medical history which includes hypertension, depression, anxiety, chronic kidney disease, CVA, recurrent C. difficile 3 and CAD status post cardiac stent. Review of ER documentation patient has had worsening medical problems for the past several months, starting with a fractured hip, complicated by multiple hospitalizations, 3 rounds of C. difficile, aspiration pneumonia, and extended rehabilitation stays, presents to the emergency department with 5 days of cough congestion shortness of breath and worsening mental status. Patient had a decrease oxygen saturation of 86% on room air. No obvious pneumonia. Blood test show what appears to be acute kidney injury related to significant dehydration. She is given IV fluid rehydration in ER. Patient is a unreliable historian denies shortness of breath chest pain nausea vomiting diarrhea constipation fevers or chills. In review of ER documentation patient's son reported increasing shortness of breath, increased phlegm production, subjective fevers and altered mental status. Imaging Last Impressions Head CT 12/30/16 0000 Signed Impressions: Service Date/Time: December 18:35 - CONCLUSION: Chronic findings as above. No acute intracranial abnormality demonstrated. Bo Rosa MD Chest X-Ray 12/30/16 0000 Signed Impressions: Service Date/Time: December 10:24 - CONCLUSION: 1. Bilateral airspace disease and pleural effusions as above. No pneumothorax. Virgilio Coats MD Renal Ultrasound 12/22/16 0000 Signed Impressions: Service Date/Time: Thursday, December 22, 2016 18:16 - CONCLUSION: No evidence of hydronephrosis. Bilateral renal cysts. Yuri Garsia MD Chest CT 12/21/16 0000 Signed Impressions: Service Date/Time: Wednesday, December 21, 2016 18:27 - CONCLUSION: 14 mm spiculated nodule left lower lobe characteristic of malignancy until proven otherwise. Bilateral lower lobe consolidating airspace disease characteristic of pneumonia. Coronary artery stent. Yuri Garsia MD PE at Discharge Did not examined when patient since I was not working at that time. Hospital Course Acute respiratory failure with Hypoxemia -due to PNA found on imaging and treated as below. later in hospital course was not improving and worsening clinically. -repeat CXR showed increase pleural effusion and elevated BNP so given lasix. Pneumonia Bibasilar - Pulmonary and ID specialist following -treated empirically on rocephin per ID. previous on s/p zosyn. -continue Bronchodilator, Mucolytic and incentive spirometry. treated with solumedrol and was weaned off steroid on 12/28/15. -Sputum grew Klebsiella Pneumonia. Left lower lobe lung nodule rule out malignancy -Per Safety Clothing And Equipment Developer will need PET scan as outpatient. Acute Kidney Injury with chronic kidney disease III stable. -due to volume overloaded -strict I/O. -cautious with fluid due elevated BNP. -avoid nephrotoxins. -given lasix. Sepsis -due to PNA. -see treatment as above. CVA by history Hypertension Uncontrolled -on Clonidine and initially on Metoprolol to 25 mg BID. -switched to carvedilol by Carving Machine Operator. Atrial Fibrillation -went back into sinus rhythm with Beta blockers. -short episode most likely due to current illness. -her farm implement mechanic was consulted. Dementia -Stable Diarrhea -C Diff negative, continue with Diarrhea, -started on Questran. as per ID specialist continue Flagyl by mouth. Sudden V-tach cardiac arrest. -date of expiration ICU cooker cleaner Prompt CPR and ACLS instituted. Patient is alternative code status, no intubation. After 4 shocks, son at bedside requested that we stop all CPR and allow her to a natural . Pronounced at 1959 hours of cardiac standstill. Pt Condition on Discharge: Deteriorating Discharge Disposition: Discharge Home () Discharge Time: <= 30 minutes Mercedes Salgado MD March 06, 2017 22:15
== END 2016-12-30 19:59 | disposition expired | DRG 871 ==
LOC: NEPC 14:37 → NEDA 16:44 → OBSVTOIN 17:39 → NEDH 21:39 → HIMN 22:35
PROVIDERS: ADMIT Family Medicine; ATTEND Family Medicine
PROC: 0T9B70Z Drainage of Bladder with Drainage Device, Via Natural or Artificial Opening (ICD-10-PCS; principal; 2016-12-28)
DX: A41.9 Sepsis, unspecified organism (principal); J96.01 Acute respiratory failure with hypoxia; J69.0 Pneumonitis due to inhalation of food and vomit; N17.9 Acute kidney failure, unspecified; I47.2 Ventricular tachycardia; G93.40 Encephalopathy, unspecified; J96.02 Acute respiratory failure with hypercapnia; R13.10 Dysphagia, unspecified; I13.0 Hypertensive heart and chronic kidney disease with heart failure and stage 1 through stage 4 chronic kidney disease, or unspecified chronic kidney disease; I50.32 Chronic diastolic (congestive) heart failure; J98.11 Atelectasis; I48.0 Paroxysmal atrial fibrillation; N18.3 Chronic kidney disease, stage 3 (moderate); E86.0 Dehydration; F03.90 Unspecified dementia, unspecified severity, without behavioral disturbance, psychotic disturbance, mood disturbance, and anxiety; F32.9 Major depressive disorder, single episode, unspecified; R62.7 Adult failure to thrive; I25.10 Atherosclerotic heart disease of native coronary artery without angina pectoris; F41.8 Other specified anxiety disorders; E78.5 Hyperlipidemia, unspecified; K44.9 Diaphragmatic hernia without obstruction or gangrene; M19.90 Unspecified osteoarthritis, unspecified site; Z66 Do not resuscitate; K21.9 Gastro-esophageal reflux disease without esophagitis; R91.1 Solitary pulmonary nodule; D64.9 Anemia, unspecified; G89.29 Other chronic pain; I49.01 Ventricular fibrillation; Z51.5 Encounter for palliative care; R19.7 Diarrhea, unspecified; I69.391 Dysphagia following cerebral infarction; I69.320 Aphasia following cerebral infarction; B96.1 Klebsiella pneumoniae [K. pneumoniae] as the cause of diseases classified elsewhere; Z86.011 Personal history of benign neoplasm of the brain; Z95.5 Presence of coronary angioplasty implant and graft; Z86.19 Personal history of other infectious and parasitic diseases; Z87.891 Personal history of nicotine dependence; Z87.81 Personal history of (healed) traumatic fracture; R56.9 Unspecified convulsions
CPT/HCPCS: 36600; 70450; 71010; 71250; 76775; 76937; 80048; 80053; 80202; 81001; 82805; 83605; 83735; 83880; 84100; 84132; 84155; 84484; 85007; 85025; 85027; 85610; 85730; 87040; 87070; 87077; 87186; 87205; 87493; 87641; 87804; 93005; 93306; 94640; 94664; C9113; J0171; J0282; J0692; J0696; J1630; J1644; J1720; J1940; J1953; J2060; J2543; J3370; J3475; J3480; J7030; J7042; J7050; J7512; J7626; J7644